=== PATIENT | female | born 1975 | race Two or more races ===

== ENCOUNTER 2017-10-08 12:49 | Inpatient (IN) | payer BC, OTHER ==
[~2017-10-08] VITALS: Ht 162.6 cm; Wt 75.4 kg
[2017-10-08] VITALS (15 sets, daily range): BP systolic 79–110; BP diastolic 46–62
[~2017-10-08 12:49] MED LIST: Pantoprazole Inj IVP ONE
[2017-10-08] MEDS ORDERED: Pantoprazole Inj ONE (12:58)
[2017-10-08] MEDS ORDERED: LISINOPRIL5 MG ORAL (13:27)
[2017-10-08] MEDS ORDERED: BENADRYL25 MG ORAL (13:27)
[2017-10-08] MEDS ORDERED: DILAUDID8 MG PO (13:27)
[2017-10-08 13:38] LABS: HEMATOCRIT 24.1 % (37.0-47.0); HEMOGLOBIN 7.7 G/DL (12.0-16.0); MEAN CORPUSCULAR VOLUME 102 FL (80-99); PLATELET COUNT 365 K/UL (150-450); RED BLOOD COUNT 2.36 M/UL (4.20-5.40); WHITE BLOOD COUNT 19.4 K/UL (4.8-10.8)
[2017-10-08 13:41] LABS: ANION GAP 17 mmol/L (5-15); BLOOD UREA NITROGEN 69 mg/dL (7-18); CALCIUM 9.1 MG/DL (8.5-10.1); CARBON DIOXIDE 25 MMOL/L (21-32); CHLORIDE 94 MMOL/L (98-107); CREATININE 6.9 MG/DL (0.55-1.30); POTASSIUM 4.5 MMOL/L (3.5-5.1); SODIUM 136 MMOL/L (136-145)
[2017-10-08 13:45] LABS: INR 1.1 (0.9-1.1)
[2017-10-08 13:49] LABS: AMMONIA 47 umol/L (11-32)
[2017-10-08 13:52] LABS: ALANINE AMINOTRANSFERASE 8 U/L (12-78); ALBUMIN 2.5 G/DL (3.4-5.0); ALBUMIN/GLOBULIN RATIO 0.6 (1.0-2.7); ALKALINE PHOSPHATASE 445 U/L (46-116); ASPARTATE AMINO TRANSFERASE 15 U/L (15-37); BILIRUBIN,DIRECT 0.1 MG/DL (0.0-0.3); BILIRUBIN,TOTAL 1.5 MG/DL (0.2-1.0)
[2017-10-08] MEDS ORDERED: SandoSTATIN 50mcg Inj IVP ONE (14:00)
--- NOTE | 2017-10-08 14:17 | Emergency Room Report ---
History of Present Illness General Chief Complaint: Gastrointestinal Bleed Source: Patient, EMS Present Illness HPI Patient is a 42-year-old female who presented after increased hematemesis. Patient was noted to have prior history of end-stage renal disease on dialysis. Patient was dialyzed yesterday reportedly. Patient has been dialyzed through a left-sided temporary dialysis access. She had previous shunts to both upper extremities. Patient denied any prior history of vomiting blood. She had previous abdominal surgeries. The patient reports having some lower abdominal pain. Allergies: Coded Allergies: CODEINE (Unverified Allergy, Unknown, 10/16/14) IODINE (Unverified Allergy, Unknown, 10/16/14) MORPHINE (Unverified Allergy, Unknown, 10/16/14) PENICILLINS (Unverified Allergy, Unknown, 10/16/14) Patient History Past Medical History: see triage record Reviewed Nursing Documentation: PMH: Agreed; PSxH: Agreed Nursing Documentation-PMH Past Medical History: No History, Except For Hx Hypertension: Yes Hx Dialysis: Yes - MWF Review of Systems All Other Systems: negative except mentioned in HPI Physical Exam Vital Signs Date Time Temp Pulse Resp B/P (MAP) Pulse Ox O2 Delivery O2 Flow Rate FiO2 10/08/17 12:41 98.9 106 20 80/46 99 Room Air 99.0 10/08/17 13:17 2.0 Sp02 EP Interpretation: reviewed, normal General Appearance: severe distress, Chronically Ill Head: atraumatic ENT: normal ENT inspection, hearing grossly normal, normal voice Neck: normal inspection, full range of motion, supple, no bony tend Respiratory: normal inspection, lungs clear, normal breath sounds, no respiratory distress, no retraction, no wheezing Cardiovascular #1: tachycardia Gastrointestinal: normal inspection, normal bowel sounds, non tender, soft, no guarding, no hernia Genitourinary: no CVA tenderness Musculoskeletal: normal inspection, back normal, normal range of motion Neurologic: normal inspection, alert, oriented x3, responsive, apartment property manager III-XII nml as tested, speech normal Psychiatric: normal inspection, judgement/insight normal, mood/affect normal Skin: no rash, pallor Procedures Critical Care Time Critical Care Time Patient had a critical medical condition which untreated could potentially result in life or limb threatening injury. Total critical care time excluding procedures approximately 45 minutes. Medical Decision Making Diagnostic Impression: Primary Impression: Upper GI bleed Additional Impressions: ESRD (end stage renal disease) Severe anemia ER Course Patient presented for abdominal pain. Differential diagnoses included ischemic bowel, appendicitis, perforated viscus, abdominal aortic aneurysm, inferior myocardial infarction, viral gastroenteritis, ulcer, esophageal varices, gastritis. Because of complexity of patient's case laboratory testing and imaging studies were ordered. A studies were notable for anemia with hemoglobin 7.7. Patient was noted to have initial hypotension. Patient was consented for blood transfusion. The patient suddenly transfused blood. The patient was started on IV fluids due to hypotension. Patient will be admitted to ICU. Dr. Clint Montelongo was contacted for GI consult. Dr. Snell was contacted for inpatient management due to covering physician. Labs Test 10/08/17 13:01 White Blood Count 19.4 K/UL (4.8-10.8) Red Blood Count 2.36 M/UL (4.20-5.40) Hemoglobin 7.7 G/DL (12.0-16.0) Hematocrit 24.1 % (37.0-47.0) Mean Corpuscular Volume 102 FL (80-99) Mean Corpuscular Hemoglobin 32.7 PG (27.0-31.0) Mean Corpuscular Hemoglobin Concent 32.0 G/DL (32.0-36.0) Red Cell Distribution Width 14.0 % (11.6-14.8) Platelet Count 365 K/UL (150-450) Mean Platelet Volume 8.4 FL (6.5-10.1) Neutrophils (%) (Auto) % (45.0-75.0) Lymphocytes (%) (Auto) % (20.0-45.0) Monocytes (%) (Auto) % (1.0-10.0) Eosinophils (%) (Auto) % (0.0-3.0) Basophils (%) (Auto) % (0.0-2.0) Differential Total Cells Counted 100 Neutrophils % (Manual) 76 % (45-75) Lymphocytes % (Manual) 20 % (20-45) Monocytes % (Manual) 4 % (1-10) Eosinophils % (Manual) 0 % (0-3) Basophils % (Manual) 0 % (0-2) Band Neutrophils 0 % (0-8) Platelet Estimate Adequate Platelet Morphology Normal Prothrombin Time 11.4 SEC (9.30-11.50) Prothromb Time International Ratio 1.1 (0.9-1.1) Activated Partial Thromboplast Time 28 SEC (23-33) Sodium Level 136 MMOL/L (136-145) Potassium Level 4.5 MMOL/L (3.5-5.1) Chloride Level 94 MMOL/L (98-107) Carbon Dioxide Level 25 MMOL/L (21-32) Anion Gap 17 mmol/L (5-15) Blood Urea Nitrogen 69 mg/dL (7-18) Creatinine 6.9 MG/DL (0.55-1.30) Estimat Glomerular Filtration Rate 6.6 mL/min (>60) Glucose Level 207 MG/DL (74-106) Calcium Level 9.1 MG/DL (8.5-10.1) Total Bilirubin 1.5 MG/DL (0.2-1.0) Direct Bilirubin 0.1 MG/DL (0.0-0.3) Aspartate Amino Transf (AST/SGOT) 15 U/L (15-37) Alanine Aminotransferase (ALT/SGPT) 8 U/L (12-78) Alkaline Phosphatase 445 U/L (46-116) Ammonia 47 umol/L (11-32) Total Protein 6.6 G/DL (6.4-8.2) Albumin 2.5 G/DL (3.4-5.0) Globulin 4.1 g/dL Albumin/Globulin Ratio 0.6 (1.0-2.7) Lipase 52 U/L (73-393) Human Chorionic Gonadotropin, Qual Negative EKG Diagnostic Results Rate: normal Rhythm: NSR ST Segments: no acute changes Rhythm Strip Diag. Results EP Interpretation: yes Rhythm: NSR, no PVC's, no ectopy Last Vital Signs Date Time Temp Pulse Resp B/P (MAP) Pulse Ox O2 Delivery O2 Flow Rate FiO2 10/08/17 14:02 99.0 93 18 95/51 98 Nasal Cannula 2.0 99.0 Status: unchanged Disposition: ADMITTED INPATIENT Condition: Critical Referrals: MACHELLE CALDERON (PCP) Kenroy Lennon Oct 08, 2017 14:17
[2017-10-08] MEDS: Octreotide Acetate 500 MCG in Sodium Chloride 500ML 499 ML IV SCH ×2 (14:51→19:40)
[2017-10-08] MEDS ORDERED: Pantoprazole 80 MG in NS 250 ML IV ONE ×2 (15:15→15:45)
--- NOTE | 2017-10-08 15:42 | Diagnostic Imaging Report ---
Indication: Abdominal pain. Vomiting blood. Technique: CT of the abdomen and pelvis utilizing automated exposure control with without intravenous or oral contrast. CT dose: Total DLP 747 mGycm; CTDI vol 14.7 mGy Comparison: None Findings: Note that evaluation of the abdominal pelvic viscera is limited without the use of intravenous and oral contrast. Within these limitations, the following observations are made: Dependent atelectasis noted in the lung bases. There is a 5 mm nodule in the right lower lobe. Heart size within normal limits. Portions of a Allises catheter noted with its tip in the low right atrium/approaching the IVC. There are aortic valvular, mitral annular and extensive coronary arterial calcifications. Linear calcifications noted underlying the domes of the bilateral diaphragms is nonspecific and may be sequela of prior trauma, inflammation or infection. A punctate calcification is noted within the left lobe liver. There is cholelithiasis without CT evidence to suggest an acute cholecystitis. Spleen and adrenal glands are unremarkable in appearance. The bilateral kidneys are shrunken and atrophic, consistent with end-stage renal disease. Multiple exophytic masses are noted within the kidneys some of which represent simple renal cysts, additional masses are not fully characterized. Multiple calcifications noted within the pancreas which may be vascular in etiology or may possibly reflect chronic pancreatitis. Bladder is decompressed, limiting its evaluation. The uterus grossly unremarkable. There is a moderate to large hiatal hernia. The stomach is distended with high attenuation material possibly representing blood. There is no evidence of bowel obstruction. No free intraperitoneal air or fluid. There is colonic diverticulosis without evidence to suggest an acute diverticulitis. No appreciable focal bowel wall thickening however evaluation is limited without oral contrast. Abdomen are normal in caliber. There is extensive calcification of the visceral arteries, likely related to end-stage renal disease. There is a calcified mass in the right lower quadrant, possibly calcified lymph nodes or sequela of remote trauma/surgery. There are some adjacent surgical clips. There is a small fat-containing umbilical hernia. There is extensive somewhat patchy sclerosis of the osseous structures, these findings most likely represent renal osteodystrophy. IMPRESSION: Limited exam without intravenous and oral contrast. Within these limitations: * Moderate to large hiatal hernia. Gastric distention with high attenuation components within the stomach lumen, likely blood. This may correspond with given history of hematemesis. No definite causative lesion is appreciated on this noncontrast scan. Correlation with upper endoscopy recommended. * Cholelithiasis. No evidence to suggest acute cholecystitis. * Diverticulosis. No evidence to suggest acute diverticulitis. * Atrophic eek kidneys. Multiple masses in the bilateral kidneys, some which are definitively characterized as simple cysts, the remainder are too small for definitive characterization. Consider further evaluation with ultrasound or MRI on a nonemergent basis. * Dialysis catheter in place with its tip low in the right atrium, projecting into the inferior vena cava. * Diffuse bony changes likely reflective of renal osteodystrophy. * 5 mm nodule in the right lower lobe. Additional findings as above. The CT scanner at [facility] is accredited by the [employer] and the scans are performed using protocols designed to limit radiation exposure to as low as reasonably achievable to attain images of sufficient resolution adequate for diagnostic evaluation.
--- NOTE | 2017-10-08 16:14 | History and Physical ---
History of Present Illness General Date patient seen: Oct 08, 2017 Time patient seen: 18:00 Reason for Hospitalization: Acute Upper Gastrointestinal Bleed Present Illness HPI 42y/o female with pmh of HTN, ESRD on HD who presents with hematemesis. Pt had bloody emesis since this AM. She has never had this before. She had a BM today but did not check the color so unsure if there was blood. She c/o generalized abd discomfort and n/v. Pt had a R foot fracture after a mechanical fall abt 2 weeks ago which was splinted at outside hospital. Pt also developed blister to area. She was seeing an outpatient orthopedic doctor. Pt had been taking dilaudid and naproxen for pain. Pt denies ASA, plavix, anticoagulation use. Denies f/c, chest pain, SOB. In ED, hgb 7.7. Pt had active hematemesis in ED. GI consulted. PPI and octreotide gtt started. 2U pRBC ordered to be transfused. Pt hypotensive to 70- 80s, given IVFs w/ improvement. Allergies: Coded Allergies: CODEINE (Unverified Allergy, Unknown, 10/16/14) IODINE (Unverified Allergy, Unknown, 10/16/14) MORPHINE (Unverified Allergy, Unknown, 10/16/14) PENICILLINS (Unverified Allergy, Unknown, 10/16/14) Medication History Scheduled Hydromorphone Hcl (Dilaudid), 8 MG PO DAILY, (Reported) Lisinopril (Lisinopril*), 5 MG ORAL DAILY, (Reported) Scheduled PRN Diphenhydramine Hcl* (Benadryl*), 25 MG ORAL Q6H PRN for Itching, (Reported) Patient History History Provided By: Patient, Family Member, Medical Record Healthcare decision maker N Resuscitation status Advanced Directive on File Past Medical/Surgical History Past Medical/Surgical History: (1) HTN (hypertension) (2) ESRD (end stage renal disease) Family History Family History: Patient reports no known family medical history. Social History Social History: (1) Lives with family Review of Systems Constitutional: Reports: malaise, weakness Eye: Reports: no symptoms ENT: Reports: no symptoms Respiratory: Reports: no symptoms Cardiovascular: Reports: no symptoms Gastrointestinal: Reports: abdominal pain, nausea, vomiting Genitourinary: Reports: no symptoms Musculoskeletal: Reports: no symptoms Skin: Reports: no symptoms Psychiatric: Reports: no symptoms Neurological: Reports: no symptoms Endocrine: Reports: no symptoms Hematologic/Lymphatic: Reports: no symptoms Physical Exam Last 24 Hour Vital Signs Date Time Temp Pulse Resp B/P (MAP) Pulse Ox O2 Delivery O2 Flow Rate FiO2 10/08/17 15:00 99.0 83 18 80/47 93 Nasal Cannula 2.0 99.0 10/08/17 14:02 99.0 93 18 95/51 98 Nasal Cannula 2.0 99.0 10/08/17 13:17 99.0 87 20 85/50 98 Nasal Cannula 2.0 99.0 10/08/17 12:41 98.9 106 20 80/46 99 Room Air 99.0 Laboratory Tests Test 10/08/17 13:01 White Blood Count 19.4 K/UL (4.8-10.8) H Red Blood Count 2.36 M/UL (4.20-5.40) L Hemoglobin 7.7 G/DL (12.0-16.0) L Hematocrit 24.1 % (37.0-47.0) L Mean Corpuscular Volume 102 FL (80-99) H Mean Corpuscular Hemoglobin 32.7 PG (27.0-31.0) H Mean Corpuscular Hemoglobin Concent 32.0 G/DL (32.0-36.0) Red Cell Distribution Width 14.0 % (11.6-14.8) Platelet Count 365 K/UL (150-450) Mean Platelet Volume 8.4 FL (6.5-10.1) Neutrophils (%) (Auto) % (45.0-75.0) Lymphocytes (%) (Auto) % (20.0-45.0) Monocytes (%) (Auto) % (1.0-10.0) Eosinophils (%) (Auto) % (0.0-3.0) Basophils (%) (Auto) % (0.0-2.0) Differential Total Cells Counted 100 Neutrophils % (Manual) 76 % (45-75) H Lymphocytes % (Manual) 20 % (20-45) Monocytes % (Manual) 4 % (1-10) Eosinophils % (Manual) 0 % (0-3) Basophils % (Manual) 0 % (0-2) Band Neutrophils 0 % (0-8) Platelet Estimate Adequate Platelet Morphology Normal Prothrombin Time 11.4 SEC (9.30-11.50) Prothromb Time International Ratio 1.1 (0.9-1.1) Activated Partial Thromboplast Time 28 SEC (23-33) Sodium Level 136 MMOL/L (136-145) Potassium Level 4.5 MMOL/L (3.5-5.1) Chloride Level 94 MMOL/L (98-107) L Carbon Dioxide Level 25 MMOL/L (21-32) Anion Gap 17 mmol/L (5-15) H Blood Urea Nitrogen 69 mg/dL (7-18) H Creatinine 6.9 MG/DL (0.55-1.30) H Estimat Glomerular Filtration Rate 6.6 mL/min (>60) Glucose Level 207 MG/DL (74-106) H Calcium Level 9.1 MG/DL (8.5-10.1) Total Bilirubin 1.5 MG/DL (0.2-1.0) H Direct Bilirubin 0.1 MG/DL (0.0-0.3) Aspartate Amino Transf (AST/SGOT) 15 U/L (15-37) Alanine Aminotransferase (ALT/SGPT) 8 U/L (12-78) L Alkaline Phosphatase 445 U/L (46-116) H Ammonia 47 umol/L (11-32) H Total Protein 6.6 G/DL (6.4-8.2) Albumin 2.5 G/DL (3.4-5.0) L Globulin 4.1 g/dL Albumin/Globulin Ratio 0.6 (1.0-2.7) L Lipase 52 U/L (73-393) L Human Chorionic Gonadotropin, Qual Negative Height (Feet): 5 Height (Inches): 5.00 Weight (Pounds): 150 Medications Current Medications Medications (Trade) Dose Ordered Sig/Loida Route PRN Reason Start Time Stop Time Status Last Admin Dose Admin Acetaminophen (Tylenol) 650 mg Q4H PRN ORAL Mild Pain (Pain Scale 1-3) 10/08/17 16:15 11/07/17 16:14 UNV Acetaminophen (Tylenol) 650 mg Q4H PRN ORAL fever 10/08/17 16:15 11/07/17 16:14 UNV Acetaminophen (Tylenol) 650 mg Q4H PRN RECTAL Mild Pain (Pain Scale 1-3) 4/5/18 16:15 11/07/17 16:14 UNV Acetaminophen (Tylenol) 650 mg Q4H PRN RECTAL fever 10/08/17 16:15 11/07/17 16:14 UNV Dextrose (Dextrose 50%) STAT PRN IV Hypoglycemia 10/08/17 16:15 11/07/17 16:14 UNV Dextrose/Sodium Chloride 1,000 ml @ 50 mls/hr Q20H IV 10/08/17 16:15 11/07/17 16:14 UNV Octreotide Acetate 500 mcg/ Sodium Chloride 500 ml @ 50 mls/hr Q10H IV 10/08/17 14:00 11/07/17 13:59 10/08/17 14:51 Ondansetron HCl (Zofran) 4 mg Q6H PRN IVP Nausea & Vomiting 10/08/17 16:15 11/07/17 16:14 UNV Pantoprazole 80 mg/Sodium Chloride 250 ml @ 25 mls/hr Q10H IV 10/08/17 16:15 11/07/17 16:14 UNV Pantoprazole 80 mg/Sodium Chloride 250 ml @ 250 mls/hr Q1H ONCE IV 10/08/17 15:15 10/08/17 16:14 10/08/17 15:42 Assessment/Plan Problem List: (1) Acute upper GI bleed ICD Codes: K92.2 - Gastrointestinal hemorrhage, unspecified SNOMED: 97081250 (2) Hypotension ICD Codes: I95.9 - Hypotension, unspecified SNOMED: 42454520 (3) Acute blood loss anemia ICD Codes: D62 - Acute posthemorrhagic anemia SNOMED: 590828267 (4) ESRD on HD Status: stable Assessment/Plan Admit to ICU GI consulted PPI gtt Octreotide gtt Trend CBC; transfuse for hgb<7.5 or active bleeding Transfuse 2U pRBCs NPO Plan for EGD tomorrow Cardiology consulted Hold BP meds Pulmonology/critical care consulted Pressors if needed to maintain MAP>60\ Monitor respiratory status closely given hematemesis Nephrology consulted Cont HD per renal Pain control, bowel regimen Supportive care DVT ppx: SCDs FULL CODE At the time of my involvement, the patient's condition was critical with high potential for and/or physiologic deterioration secondary to acute upper GI bleed, hypotension as delineated in the note above. Total time spent 70min w/ >50% on care/coordination On the above date of service, I spent a total of 45 minutes in the ICU evaluating, managing, and providing critical care services to this patient, including time spent documenting these activities, counseling patient/family, and coordinating care. Critical care services performed include: Telemetry Review Hemodynamic measurement interpretation Laboratory data review and interpretation Discussion of care plans with patient, family, and/or surrogate decision makers Discussion of patient's care with primary medical team, surgical team, and/or consulting service Decision to obtain further radiologic evaluation, after consideration of risk/ benefit ratio Decision to perform invasive procedure, after consideration of risk/benefit ratio Discussion of patient's code status and further advancement towards the ultimate goals of care D/w pt, family, RN, GI, renal, cardiology, pulmonology regarding mgmt and dispo Time of note may not reflect time of encounter. Channing Mejia M.D. Oct 08, 2017 16:14
[2017-10-08] MEDS ORDERED: Acetaminophen 650 MG SUPP RECTAL PRN (16:15)
[2017-10-08] MEDS ORDERED: DiphenhydrAMINE 50mg/ml Inj IVP ONE (17:00)
[2017-10-08] MEDS ORDERED: Solu-MEDROL 125mg Inj IVP ONE (17:00)
--- NOTE | 2017-10-08 17:24 | Cardiac Electrophysiology PN ---
Subjective Subjective [id number] Objective Last 24 Hour Vital Signs Date Time Temp Pulse Resp B/P (MAP) Pulse Ox O2 Delivery O2 Flow Rate FiO2 10/08/17 16:43 97.8 81 18 80/46 96 Nasal Cannula 2.0 97.8 10/08/17 15:00 99.0 83 18 80/47 93 Nasal Cannula 2.0 99.0 10/08/17 14:02 99.0 93 18 95/51 98 Nasal Cannula 2.0 99.0 10/08/17 13:17 99.0 87 20 85/50 98 Nasal Cannula 2.0 99.0 10/08/17 12:41 98.9 106 20 80/46 99 Room Air 99.0 Laboratory Tests Test 10/08/17 13:01 White Blood Count 19.4 K/UL (4.8-10.8) H Red Blood Count 2.36 M/UL (4.20-5.40) L Hemoglobin 7.7 G/DL (12.0-16.0) L Hematocrit 24.1 % (37.0-47.0) L Mean Corpuscular Volume 102 FL (80-99) H Mean Corpuscular Hemoglobin 32.7 PG (27.0-31.0) H Mean Corpuscular Hemoglobin Concent 32.0 G/DL (32.0-36.0) Red Cell Distribution Width 14.0 % (11.6-14.8) Platelet Count 365 K/UL (150-450) Mean Platelet Volume 8.4 FL (6.5-10.1) Neutrophils (%) (Auto) % (45.0-75.0) Lymphocytes (%) (Auto) % (20.0-45.0) Monocytes (%) (Auto) % (1.0-10.0) Eosinophils (%) (Auto) % (0.0-3.0) Basophils (%) (Auto) % (0.0-2.0) Differential Total Cells Counted 100 Neutrophils % (Manual) 76 % (45-75) H Lymphocytes % (Manual) 20 % (20-45) Monocytes % (Manual) 4 % (1-10) Eosinophils % (Manual) 0 % (0-3) Basophils % (Manual) 0 % (0-2) Band Neutrophils 0 % (0-8) Platelet Estimate Adequate Platelet Morphology Normal Prothrombin Time 11.4 SEC (9.30-11.50) Prothromb Time International Ratio 1.1 (0.9-1.1) Activated Partial Thromboplast Time 28 SEC (23-33) Sodium Level 136 MMOL/L (136-145) Potassium Level 4.5 MMOL/L (3.5-5.1) Chloride Level 94 MMOL/L (98-107) L Carbon Dioxide Level 25 MMOL/L (21-32) Anion Gap 17 mmol/L (5-15) H Blood Urea Nitrogen 69 mg/dL (7-18) H Creatinine 6.9 MG/DL (0.55-1.30) H Estimat Glomerular Filtration Rate 6.6 mL/min (>60) Glucose Level 207 MG/DL (74-106) H Calcium Level 9.1 MG/DL (8.5-10.1) Total Bilirubin 1.5 MG/DL (0.2-1.0) H Direct Bilirubin 0.1 MG/DL (0.0-0.3) Aspartate Amino Transf (AST/SGOT) 15 U/L (15-37) Alanine Aminotransferase (ALT/SGPT) 8 U/L (12-78) L Alkaline Phosphatase 445 U/L (46-116) H Ammonia 47 umol/L (11-32) H Total Protein 6.6 G/DL (6.4-8.2) Albumin 2.5 G/DL (3.4-5.0) L Globulin 4.1 g/dL Albumin/Globulin Ratio 0.6 (1.0-2.7) L Lipase 52 U/L (73-393) L Human Chorionic Gonadotropin, Qual Negative Fabio San MD Oct 08, 2017 17:24
[2017-10-08 18:08] LABS: % IRON SATURATION 60 % (15-50); IRON 93 ug/dL (50-175); TOTAL IRON BINDING CAPACITY 155 ug/dL (250-450)
[2017-10-08 18:20] LABS: FERRITIN > 2000 NG/ML (8-388); LACTATE DEHYDROGENASE 208 U/L (81-234)
[2017-10-08] MEDS: D5NS 1,000 ML IV SCH (18:26)
[2017-10-08] MEDS: Pantoprazole 80 MG in NS 250 ML IV SCH (18:28)
[2017-10-08] MEDS: DOPamine 400mg/250ml 250 ML IV SCH (20:10)
[2017-10-08 22:00] LABS: HEMATOCRIT 21.7 % (37.0-47.0); HEMOGLOBIN 7.1 G/DL (12.0-16.0); MEAN CORPUSCULAR VOLUME 98 FL (80-99); PLATELET COUNT 265 K/UL (150-450); RED BLOOD COUNT 2.22 M/UL (4.20-5.40); RED CELL DISTRIBUTION WIDTH 15.6 % (11.6-14.8); WHITE BLOOD COUNT 15.7 K/UL (4.8-10.8)
[2017-10-08 22:23] LABS: INR 1.2 (0.9-1.1)
[2017-10-08 22:26] LABS: CREATINE KINASE 75 U/L (26-308)
--- NOTE | 2017-10-08 22:45 | Consultation ---
DATE OF CONSULTATION: 10/08/2017 CARDIOLOGY CONSULTATION CONSULTING PHYSICIAN: Fabio San M.D. REFERRING PHYSICIAN: Myke Olmos M.D. REASON FOR CONSULTATION: Hypotension in a patient with history of hypertension. HISTORY OF PRESENT ILLNESS: The patient is a 42-year-old lady with history of hypertension as well as end-stage renal disease on hemodialysis for 24 years as well as history of failed kidney transplant. The patient presented to the emergency room for hematemesis. The patient is currently getting hemodialysis via her left IJ Sean catheter as she has nonfunctional shunt of upper extremity. The patient in the emergency room was found to be hypotensive with blood pressure as low as 70s. At the time of my evaluation, the patient is getting blood transfusion. She is lethargic. Her hemoglobin was 7.7. REVIEW OF SYSTEMS: Cannot be obtained as the patient is barely responsive. Both of her sisters are at the bedside and states that she has not had any chest pain when they brought her to the emergency room. PAST MEDICAL HISTORY: 1. Hypertension. 2. End-stage renal disease, on hemodialysis. 3. History of failed kidney transplant. FAMILY HISTORY: Noncontributory. SOCIAL HISTORY: She lives at home. Does not smoke or drink alcohol. PHYSICAL EXAMINATION: VITAL SIGNS: Blood pressure is 80/46, pulse 81, respirations 18, temperature 97.8. HEAD AND NECK: Shows no JVD. She has a left IJ Sean catheter. LUNGS: Clear. CARDIOVASCULAR: Tachycardic. S1 and S2 with no gallop or murmur. ABDOMEN: Soft. EXTREMITIES: No pitting edema. She has history of AV shunt in her bilateral upper extremities. LABORATORY DATA: Labs show white count of 19.4, hemoglobin 7.7, hematocrit of 24, and platelet count is 365. Sodium 136, potassium 4.5, BUN of 69, creatinine 6.9, and glucose of 207. Her beta-HCG is negative. ASSESSMENT AND PLAN: 1. Hypotension, likely due to hemorrhagic shock. The patient is getting blood transfusion and IV fluid. The patient may need Levophed to sustain her blood pressure. We will completely rule out myocardial infarction protocol and get an echocardiogram. 2. Hematemesis and profound anemia. Gastroenterology evaluation is pending. She is getting blood transfusion. 3. End-stage renal disease, on hemodialysis. 4. History of failed kidney transplant. Thank you very much, Dr. Olmos, for allowing me to participate in the care of this patient. Please do not hesitate to contact me for any questions regarding my evaluation. Fabio San M.D. DR: Delphine JOB#: [id number] CC:
[2017-10-09] VITALS (19 sets, daily range): BP systolic 87–132; BP diastolic 33–76
[2017-10-09] MEDS: Octreotide Acetate 500 MCG in Sodium Chloride 500ML 499 ML IV SCH ×2 (01:22→10:55)
[2017-10-09] MEDS ORDERED: Pantoprazole 80 MG in NS 250 ML IV SCH (01:30)
[2017-10-09] MEDS: Pantoprazole 80 MG in NS 250 ML IV SCH ×2 (04:06→14:00)
[2017-10-09 04:51] LABS: HEMATOCRIT 19.4 % (37.0-47.0); MEAN CORPUSCULAR VOLUME 96 FL (80-99); PLATELET COUNT 217 K/UL (150-450); RED BLOOD COUNT 2.02 M/UL (4.20-5.40); RED CELL DISTRIBUTION WIDTH 15.8 % (11.6-14.8); WHITE BLOOD COUNT 15.4 K/UL (4.8-10.8)
[2017-10-09 05:24] LABS: HEMOGLOBIN 6.3 G/DL (12.0-16.0)
[2017-10-09 05:30] LABS: ANION GAP 14 mmol/L (5-15); BLOOD UREA NITROGEN 95 mg/dL (7-18); CALCIUM 8.1 MG/DL (8.5-10.1); CARBON DIOXIDE 22 MMOL/L (21-32); CHLORIDE 101 MMOL/L (98-107); CREATININE 7.1 MG/DL (0.55-1.30); SODIUM 137 MMOL/L (136-145)
[2017-10-09 05:43] LABS: ALANINE AMINOTRANSFERASE 434 U/L (12-78); ALBUMIN 2.1 G/DL (3.4-5.0); ALKALINE PHOSPHATASE 391 U/L (46-116); ASPARTATE AMINO TRANSFERASE 851 U/L (15-37); BILIRUBIN,DIRECT 0.2 MG/DL (0.0-0.3); BILIRUBIN,TOTAL 1.5 MG/DL (0.2-1.0)
--- NOTE | 2017-10-09 06:55 | Cardiac Electrophysiology PN ---
Assessment/Plan Assessment/Plan 1. Hypotension, likely due to hemorrhagic shock. The patient is getting blood transfusion and IV fluid. Did not need pressors.Rule out for myocardial infarction Echocardiogram pending. 2. Hematemesis and profound anemia. Gastroenterology evaluation is pending. She is getting blood transfusion.Dr Gunter at bedside 3. End-stage renal disease, on hemodialysis. 4. History of failed kidney transplant. ROMERO RN in ICU Subjective Subjective In ICU getting blood transfusion. Dr Gunter at bedside Objective Last 24 Hour Vital Signs Date Time Temp Pulse Resp B/P (MAP) Pulse Ox O2 Delivery O2 Flow Rate FiO2 10/09/17 04:00 98.4 86 15 98/50 100 Room Air 98.4 10/09/17 04:00 84 10/09/17 03:00 98.4 88 16 96/49 99 Room Air 98.4 10/09/17 02:00 98.9 88 17 96/49 100 Nasal Cannula 2.0 98.9 10/09/17 01:00 100 Nasal Cannula 2.0 28 10/09/17 00:00 98.9 87 18 96/52 100 Nasal Cannula 2.0 98.9 10/08/17 23:00 87 18 100/62 100 Nasal Cannula 2.0 10/08/17 22:00 97.4 89 16 110/62 100 Nasal Cannula 2.0 97.4 10/08/17 21:00 81 18 92/54 100 Nasal Cannula 2.0 10/08/17 20:10 90/45 10/08/17 20:00 83 10/08/17 20:00 97.4 81 18 91/54 100 Nasal Cannula 2.0 97.4 10/08/17 19:30 Nasal Cannula 2.0 28 10/08/17 19:00 83 17 84/57 100 Nasal Cannula 2.0 10/08/17 18:00 97.4 83 16 80/48 100 Nasal Cannula 2.0 97.4 10/08/17 18:00 97.4 83 16 90/51 96 Nasal Cannula 2.0 97.4 10/08/17 17:49 97.4 83 16 90/51 96 Nasal Cannula 2.0 97.4 10/08/17 17:35 97.4 84 13 88/51 96 Nasal Cannula 2.0 97.4 10/08/17 17:30 97.4 85 18 83/52 95 Nasal Cannula 2.0 97.4 10/08/17 17:27 97.1 85 12 79/57 96 Nasal Cannula 2.0 97.1 10/08/17 17:20 97.1 85 18 81/47 96 Nasal Cannula 2.0 97.1 10/08/17 16:43 97.8 81 18 80/46 96 Nasal Cannula 2.0 97.8 10/08/17 15:00 99.0 83 18 80/47 93 Nasal Cannula 2.0 99.0 10/08/17 14:02 99.0 93 18 95/51 98 Nasal Cannula 2.0 99.0 10/08/17 13:17 99.0 87 20 85/50 98 Nasal Cannula 2.0 99.0 10/08/17 12:41 98.9 106 20 80/46 99 Room Air 99.0 Intake and Output 10/08/17 10/09/17 19:00 07:00 Intake Total 0 ml 625 ml Output Total 50 ml 2 ml Balance -50 ml 623 ml Intake Oral 0 ml IV Total 625 ml Output Urine Total 0 ml Stool Total 2 ml Emesis 50 ml 0 ml # Bowel Movements 8 Laboratory Tests Test 10/08/17 13:01 10/08/17 20:50 10/09/17 03:00 White Blood Count 19.4 K/UL (4.8-10.8) H 15.7 K/UL (4.8-10.8) H 15.4 K/UL (4.8-10.8) H Red Blood Count 2.36 M/UL (4.20-5.40) L 2.22 M/UL (4.20-5.40) L 2.02 M/UL (4.20-5.40) L Hemoglobin 7.7 G/DL (12.0-16.0) L 7.1 G/DL (12.0-16.0) L 6.3 G/DL (12.0-16.0) *L Hematocrit 24.1 % (37.0-47.0) L 21.7 % (37.0-47.0) L 19.4 % (37.0-47.0) L Mean Corpuscular Volume 102 FL (80-99) H 98 FL (80-99) 96 FL (80-99) Mean Corpuscular Hemoglobin 32.7 PG (27.0-31.0) H 31.8 PG (27.0-31.0) H 31.3 PG (27.0-31.0) H Mean Corpuscular Hemoglobin Concent 32.0 G/DL (32.0-36.0) 32.6 G/DL (32.0-36.0) 32.7 G/DL (32.0-36.0) Red Cell Distribution Width 14.0 % (11.6-14.8) 15.6 % (11.6-14.8) H 15.8 % (11.6-14.8) H Platelet Count 365 K/UL (150-450) 265 K/UL (150-450) 217 K/UL (150-450) Mean Platelet Volume 8.4 FL (6.5-10.1) 7.8 FL (6.5-10.1) 8.3 FL (6.5-10.1) Neutrophils (%) (Auto) % (45.0-75.0) % (45.0-75.0) % (45.0-75.0) Lymphocytes (%) (Auto) % (20.0-45.0) % (20.0-45.0) % (20.0-45.0) Monocytes (%) (Auto) % (1.0-10.0) % (1.0-10.0) % (1.0-10.0) Eosinophils (%) (Auto) % (0.0-3.0) % (0.0-3.0) % (0.0-3.0) Basophils (%) (Auto) % (0.0-2.0) % (0.0-2.0) % (0.0-2.0) Differential Total Cells Counted 100 100 Neutrophils % (Manual) 76 % (45-75) H 91 % (45-75) H Pending Lymphocytes % (Manual) 20 % (20-45) 8 % (20-45) L Pending Monocytes % (Manual) 4 % (1-10) 1 % (1-10) Eosinophils % (Manual) 0 % (0-3) 0 % (0-3) Basophils % (Manual) 0 % (0-2) 0 % (0-2) Band Neutrophils 0 % (0-8) 0 % (0-8) Platelet Estimate Adequate Adequate Pending Platelet Morphology Normal Normal Pending Reticulocyte Count 2.1 % (0.0-2.0) H Prothrombin Time 11.4 SEC (9.30-11.50) 12.8 SEC (9.30-11.50) H Prothromb Time International Ratio 1.1 (0.9-1.1) 1.2 (0.9-1.1) H Activated Partial Thromboplast Time 28 SEC (23-33) 28 SEC (23-33) Sodium Level 136 MMOL/L (136-145) 137 MMOL/L (136-145) Potassium Level 4.5 MMOL/L (3.5-5.1) 7.0 MMOL/L (3.5-5.1) #*H Chloride Level 94 MMOL/L (98-107) L 101 MMOL/L (98-107) Carbon Dioxide Level 25 MMOL/L (21-32) 22 MMOL/L (21-32) Anion Gap 17 mmol/L (5-15) H 14 mmol/L (5-15) Blood Urea Nitrogen 69 mg/dL (7-18) H 95 mg/dL (7-18) H Creatinine 6.9 MG/DL (0.55-1.30) H 7.1 MG/DL (0.55-1.30) H Estimat Glomerular Filtration Rate 6.6 mL/min (>60) 6.4 mL/min (>60) Glucose Level 207 MG/DL (74-106) H 158 MG/DL (74-106) H Calcium Level 9.1 MG/DL (8.5-10.1) 8.1 MG/DL (8.5-10.1) L Iron Level 93 ug/dL (50-175) Total Iron Binding Capacity 155 ug/dL (250-450) L Percent Iron Saturation 60 % (15-50) H Unsaturated Iron Binding 62 ug/dL (112-346) L Ferritin > 2000 NG/ML (8-388) H Total Bilirubin 1.5 MG/DL (0.2-1.0) H 1.5 MG/DL (0.2-1.0) H Direct Bilirubin 0.1 MG/DL (0.0-0.3) 0.2 MG/DL (0.0-0.3) Aspartate Amino Transf (AST/SGOT) 15 U/L (15-37) 851 U/L (15-37) H Alanine Aminotransferase (ALT/SGPT) 8 U/L (12-78) L 434 U/L (12-78) H Alkaline Phosphatase 445 U/L (46-116) H 391 U/L (46-116) H Ammonia 47 umol/L (11-32) H Lactate Dehydrogenase 208 U/L (81-234) Total Protein 6.6 G/DL (6.4-8.2) 4.8 G/DL (6.4-8.2) L Albumin 2.5 G/DL (3.4-5.0) L 2.1 G/DL (3.4-5.0) L Globulin 4.1 g/dL Albumin/Globulin Ratio 0.6 (1.0-2.7) L Lipase 52 U/L (73-393) L Vitamin B12 Level 378 PG/ML (193-986) Folate 7.2 NG/ML (8.6-58.9) L Thyroid Stimulating Hormone (TSH) 1.864 uiU/mL (0.358-3.740) Human Chorionic Gonadotropin, Qual Negative Polychromasia 1+ Anisocytosis 1+ Macrocytosis 1+ Erythrocyte Sedimentation Rate 115 MM/HR (0-20) H Haptoglobin Pending Uric Acid 6.7 MG/DL (2.6-7.2) Total Creatine Kinase 75 U/L (26-308) Magnesium Level 2.3 MG/DL (1.8-2.4) Troponin I 0.056 ng/mL (0.000-0.056) Pro-B-Type Natriuretic Peptide 6927 pg/mL (0-125) H Objective HEAD AND NECK: Shows no JVD. She has a left IJ Sean catheter. LUNGS: Clear. CARDIOVASCULAR: Tachycardic. S1 and S2 with no gallop or murmur. ABDOMEN: Soft. EXTREMITIES: No pitting edema. AV shunt in her bilateral upper extremities. Fabio San MD Oct 09, 2017 06:55
--- NOTE | 2017-10-09 08:30 | Consultation ---
DATE OF CONSULTATION: 10/08/2017 GASTROENTEROLOGY CONSULTATION CHIEF COMPLAINT: Anemia and GI bleeding. HISTORY OF PRESENT ILLNESS: Most of the history is per sister at the bedside. The patient was seen in the emergency room. The patient was altered and could not give any history. According to the sister, she is a dialysis patient and had a recent broken ankle that required surgery and she is not sure if she was getting some medication, but was given some pain medication. She started having vomiting blood and that is why she was admitted to the hospital. PAST MEDICAL HISTORY: 1. History of end-stage renal disease, on hemodialysis. 2. History of . 3. History of multiple blood transfusions. 4. History of chronic pain. 5. Hypertension. PAST SURGICAL HISTORY: and dialysis catheter placement on the right arm. ALLERGIES: Multiple. MEDICATIONS: Please see medication reconciliation list. SOCIAL HISTORY: There is no history of tobacco, alcohol, or drug abuse. FAMILY HISTORY: Noncontributory. REVIEW OF SYSTEMS: Unable to obtain. PHYSICAL EXAMINATION: GENERAL/VITAL SIGNS: The patient is currently in the ER, hypotensive, tachycardic. HEENT: Normocephalic and atraumatic. Mild pale conjunctivae. NECK: Supple. No obvious adenopathy. CARDIOVASCULAR: Tachycardic. Regular rate. Plus S1, S2. LUNGS: Decreased breath sounds bilaterally based on the supine exam. ABDOMEN: Soft, nontender. No rebound. No guarding. No peritoneal sign. EXTREMITIES: No cyanosis, no clubbing, and no edema. LABORATORY DATA: Recent hemoglobin around 7. ASSESSMENT: This is a 42-year-old female with acute gastrointestinal bleeding. PLAN: Plan is to give 2 units of blood. Admitted to ICU. Started on Protonix drip. Plan to do endoscopy possibly tomorrow morning. We will plan to do endoscopy sooner if the patient has available blood and she still has evidence of . Clint Montelongo M.D. DR: KATHY JOB#: [id number] CC:
--- NOTE | 2017-10-09 08:37 | Consultation ---
Consult Note Consult Note asked to eval for dialysis management Patient is a 42-year-old female who presented after increased hematemesis. Patient was noted to have prior history of end-stage renal disease on dialysis. Patient was dialyzed yesterday reportedly. Patient has been dialyzed through a left-sided temporary dialysis access. She had previous shunts to both upper extremities. Patient denied any prior history of vomiting blood. She had previous abdominal surgeries. The patient reports having some lower abdominal pain. Allergies: Coded Allergies: CODEINE (Unverified Allergy, Unknown, 10/16/14) IODINE (Unverified Allergy, Unknown, 10/16/14) MORPHINE (Unverified Allergy, Unknown, 10/16/14) PENICILLINS (Unverified Allergy, Unknown, 10/16/14) seen in ICU Examined Data reviewed discussed with RN and GI Assessment/Plan ESRD on HD for 12 years h/o failed kidney transplant High K GI Bleed Hypotension Plan Transfuse- HD [facility] Endoscopy ICU setting until stablizes BARTOLO SHARMA Oct 09, 2017 08:37
[2017-10-09 10:11] LABS: HEMATOCRIT 24.1 % (37.0-47.0); MEAN CORPUSCULAR VOLUME 94 FL (80-99); PLATELET COUNT 209 K/UL (150-450); RED BLOOD COUNT 2.58 M/UL (4.20-5.40); RED CELL DISTRIBUTION WIDTH 15.5 % (11.6-14.8)
[2017-10-09 10:42] LABS: ANION GAP 16 mmol/L (5-15); BLOOD UREA NITROGEN 113 mg/dL (7-18); CALCIUM 8.3 MG/DL (8.5-10.1); CARBON DIOXIDE 19 MMOL/L (21-32); CHLORIDE 102 MMOL/L (98-107); CREATININE 7.2 MG/DL (0.55-1.30); SODIUM 135 MMOL/L (136-145)
[2017-10-09 10:45] LABS: BILIRUBIN,DIRECT 0.2 MG/DL (0.0-0.3); BILIRUBIN,TOTAL 1.5 MG/DL (0.2-1.0)
[2017-10-09 10:47] LABS: POTASSIUM 6.1 MMOL/L (3.5-5.1)
--- NOTE | 2017-10-09 11:16 | Pulmonolgy Critical Care Note ---
Critical Care - Asmt/Plan Problems: (1) Hemorrhagic shock (2) Upper GI bleed (3) Severe anemia (4) ESRD (end stage renal disease) Respiratory: monitor respiratory rate, adjust FIO2 Cardiac: continue to monitor HR/BP Renal: F/U I&O, keep IV fluid Gastrointestinal: hold feedings, other - for EDG now Endocrine: monitor blood sugar Hematologic: transfuse if hgb<8.5 Neurologic: PRN Ativan, keep patient comfortable Affect: PRN ativan Prophylaxis: Protonix Time Spent (Minutes): 40 Notes Reviewed: inspector wreath, cardio, renal Discussed with: nurses, caseworker protective servicesdesktop manager - Objective Last 24 Hour Vital Signs Date Time Temp Pulse Resp B/P (MAP) Pulse Ox O2 Delivery O2 Flow Rate FiO2 10/09/17 07:00 84 16 108/54 98 Room Air 10/09/17 06:00 85 15 103/39 96 Room Air 10/09/17 05:00 87 15 92/45 96 Room Air 10/09/17 04:00 98.4 86 15 98/50 100 Room Air 98.4 10/09/17 04:00 84 10/09/17 03:00 98.4 88 16 96/49 99 Room Air 98.4 10/09/17 02:00 98.9 88 17 96/49 100 Nasal Cannula 2.0 98.9 10/09/17 01:00 100 Nasal Cannula 2.0 28 10/09/17 00:00 98.9 87 18 96/52 100 Nasal Cannula 2.0 98.9 10/08/17 23:00 87 18 100/62 100 Nasal Cannula 2.0 10/08/17 22:00 97.4 89 16 110/62 100 Nasal Cannula 2.0 97.4 10/08/17 21:00 81 18 92/54 100 Nasal Cannula 2.0 10/08/17 20:10 90/45 10/08/17 20:00 83 10/08/17 20:00 97.4 81 18 91/54 100 Nasal Cannula 2.0 97.4 10/08/17 19:30 Nasal Cannula 2.0 28 10/08/17 19:00 83 17 84/57 100 Nasal Cannula 2.0 10/08/17 18:00 97.4 83 16 80/48 100 Nasal Cannula 2.0 97.4 4/5/18 18:00 97.4 83 16 90/51 96 Nasal Cannula 2.0 97.4 10/08/17 17:49 97.4 83 16 90/51 96 Nasal Cannula 2.0 97.4 10/08/17 17:35 97.4 84 13 88/51 96 Nasal Cannula 2.0 97.4 10/08/17 17:30 97.4 85 18 83/52 95 Nasal Cannula 2.0 97.4 10/08/17 17:27 97.1 85 12 79/57 96 Nasal Cannula 2.0 97.1 10/08/17 17:20 97.1 85 18 81/47 96 Nasal Cannula 2.0 97.1 10/08/17 16:43 97.8 81 18 80/46 96 Nasal Cannula 2.0 97.8 10/08/17 15:00 99.0 83 18 80/47 93 Nasal Cannula 2.0 99.0 10/08/17 14:02 99.0 93 18 95/51 98 Nasal Cannula 2.0 99.0 10/08/17 13:17 99.0 87 20 85/50 98 Nasal Cannula 2.0 99.0 10/08/17 12:41 98.9 106 20 80/46 99 Room Air 99.0 Status: awake Condition: critical HEENT: atraumatic Lungs: clear Heart: HR/BP stable, HR/BP unstable Abdomen: soft, active bowel sounds Extremities: no C/C/E Decubiti: location Accucheck: 144 Critical Care - Subjective ROS Limited/Unobtainable: No ICU Day: 2 Condition: critical EKG Rhythm: Sinus Rhythm FI02: 28 Fluids: d5NS I&O: Intake and Output 10/08/17 10/09/17 19:00 07:00 Intake Total 0 ml 1500 ml Output Total 50 ml 2 ml Balance -50 ml 1498 ml Intake Oral 0 ml IV Total 1500 ml Output Urine Total 0 ml Stool Total 2 ml Emesis 50 ml 0 ml # Bowel Movements 10 CXR: ct reviewed Labs: Laboratory Tests Test 10/08/17 13:01 10/08/17 20:50 10/09/17 03:00 10/09/17 09:50 White Blood Count 19.4 K/UL (4.8-10.8) H 15.7 K/UL (4.8-10.8) H 15.4 K/UL (4.8-10.8) H 19.0 K/UL (4.8-10.8) H Red Blood Count 2.36 M/UL (4.20-5.40) L 2.22 M/UL (4.20-5.40) L 2.02 M/UL (4.20-5.40) L 2.58 M/UL (4.20-5.40) L Hemoglobin 7.7 G/DL (12.0-16.0) L 7.1 G/DL (12.0-16.0) L 6.3 G/DL (12.0-16.0) *L 8.0 G/DL (12.0-16.0) L Hematocrit 24.1 % (37.0-47.0) L 21.7 % (37.0-47.0) L 19.4 % (37.0-47.0) L 24.1 % (37.0-47.0) L Mean Corpuscular Volume 102 FL (80-99) H 98 FL (80-99) 96 FL (80-99) 94 FL (80-99) Mean Corpuscular Hemoglobin 32.7 PG (27.0-31.0) H 31.8 PG (27.0-31.0) H 31.3 PG (27.0-31.0) H 31.1 PG (27.0-31.0) H Mean Corpuscular Hemoglobin Concent 32.0 G/DL (32.0-36.0) 32.6 G/DL (32.0-36.0) 32.7 G/DL (32.0-36.0) 33.2 G/DL (32.0-36.0) Red Cell Distribution Width 14.0 % (11.6-14.8) 15.6 % (11.6-14.8) H 15.8 % (11.6-14.8) H 15.5 % (11.6-14.8) H Platelet Count 365 K/UL (150-450) 265 K/UL (150-450) 217 K/UL (150-450) 209 K/UL (150-450) Mean Platelet Volume 8.4 FL (6.5-10.1) 7.8 FL (6.5-10.1) 8.3 FL (6.5-10.1) 8.1 FL (6.5-10.1) Neutrophils (%) (Auto) % (45.0-75.0) % (45.0-75.0) % (45.0-75.0) % (45.0-75.0) Lymphocytes (%) (Auto) % (20.0-45.0) % (20.0-45.0) % (20.0-45.0) % (20.0-45.0) Monocytes (%) (Auto) % (1.0-10.0) % (1.0-10.0) % (1.0-10.0) % (1.0- 10.0) Eosinophils (%) (Auto) % (0.0-3.0) % (0.0-3.0) % (0.0-3.0) % (0.0-3.0 ) Basophils (%) (Auto) % (0.0-2.0) % (0.0-2.0) % (0.0-2.0) % (0.0-2.0) Differential Total Cells Counted 100 100 100 100 Neutrophils % (Manual) 76 % (45-75) H 91 % (45-75) H 89 % (45-75) H 91 % (45- 75) H Lymphocytes % (Manual) 20 % (20-45) 8 % (20-45) L 8 % (20-45) L 6 % (20-45) L Monocytes % (Manual) 4 % (1-10) 1 % (1-10) 3 % (1-10) 3 % (1-10) Eosinophils % (Manual) 0 % (0-3) 0 % (0-3) 0 % (0-3) 0 % (0-3) Basophils % (Manual) 0 % (0-2) 0 % (0-2) 0 % (0-2) 0 % (0-2) Band Neutrophils 0 % (0-8) 0 % (0-8) 0 % (0-8) 0 % (0-8) Platelet Estimate Adequate Adequate Adequate Adequate Platelet Morphology Normal Normal Normal Normal Reticulocyte Count 2.1 % (0.0-2.0) H Prothrombin Time 11.4 SEC (9.30-11.50) 12.8 SEC (9.30-11.50) H Prothromb Time International Ratio 1.1 (0.9-1.1) 1.2 (0.9-1.1) H Activated Partial Thromboplast Time 28 SEC (23-33) 28 SEC (23-33) Sodium Level 136 MMOL/L (136-145) 137 MMOL/L (136-145) 135 MMOL/L (136-145) L Potassium Level 4.5 MMOL/L (3.5-5.1) 7.0 MMOL/L (3.5-5.1) #*H 6.1 MMOL/L (3.5-5.1) *H Chloride Level 94 MMOL/L (98-107) L 101 MMOL/L (98-107) 102 MMOL/L (98-107) Carbon Dioxide Level 25 MMOL/L (21-32) 22 MMOL/L (21-32) 19 MMOL/L (21-32) L Anion Gap 17 mmol/L (5-15) H 14 mmol/L (5-15) 16 mmol/L (5-15) H Blood Urea Nitrogen 69 mg/dL (7-18) H 95 mg/dL (7-18) H 113 mg/dL (7-18) H Creatinine 6.9 MG/DL (0.55-1.30) H 7.1 MG/DL (0.55-1.30) H 7.2 MG/DL (0.55-1.30) H Estimat Glomerular Filtration Rate 6.6 mL/min (>60) 6.4 mL/min (>60) 6.2 mL/min (>60) Glucose Level 207 MG/DL (74-106) H 158 MG/DL (74-106) H 303 MG/DL (74-106) #H Calcium Level 9.1 MG/DL (8.5-10.1) 8.1 MG/DL (8.5-10.1) L 8.3 MG/DL (8.5-10.1) L Iron Level 93 ug/dL (50-175) Total Iron Binding Capacity 155 ug/dL (250-450) L Percent Iron Saturation 60 % (15-50) H Unsaturated Iron Binding 62 ug/dL (112-346) L Ferritin > 2000 NG/ML (8-388) H Total Bilirubin 1.5 MG/DL (0.2-1.0) H 1.5 MG/DL (0.2-1.0) H 1.5 MG/DL (0.2-1.0) H Direct Bilirubin 0.1 MG/DL (0.0-0.3) 0.2 MG/DL (0.0-0.3) 0.2 MG/DL (0.0-0.3) Aspartate Amino Transf (AST/SGOT) 15 U/L (15-37) 851 U/L (15-37) H Alanine Aminotransferase (ALT/SGPT) 8 U/L (12-78) L 434 U/L (12-78) H Alkaline Phosphatase 445 U/L (46-116) H 391 U/L (46-116) H Ammonia 47 umol/L (11-32) H Lactate Dehydrogenase 208 U/L (81-234) Total Protein 6.6 G/DL (6.4-8.2) 4.8 G/DL (6.4-8.2) L Albumin 2.5 G/DL (3.4-5.0) L 2.1 G/DL (3.4-5.0) L Globulin 4.1 g/dL Albumin/Globulin Ratio 0.6 (1.0-2.7) L Lipase 52 U/L (73-393) L Vitamin B12 Level 378 PG/ML (193-986) Folate 7.2 NG/ML (8.6-58.9) L Thyroid Stimulating Hormone (TSH) 1.864 uiU/mL (0.358-3.740) Human Chorionic Gonadotropin, Qual Negative Other Cell Type Pathologist comment Polychromasia 1+ Anisocytosis 1+ 1+ 1+ Macrocytosis 1+ Erythrocyte Sedimentation Rate 115 MM/HR (0-20) H Haptoglobin Pending Uric Acid 6.7 MG/DL (2.6-7.2) Total Creatine Kinase 75 U/L (26-308) Hypochromasia 1+ 1+ Magnesium Level 2.3 MG/DL (1.8-2.4) Troponin I 0.056 ng/mL (0.000-0.056) Pro-B-Type Natriuretic Peptide 6927 pg/mL (0-125) H Layne Enamorado MD Oct 09, 2017 11:16
--- NOTE | 2017-10-09 11:25 | Pre-Procedure Note/Attestation ---
Pre-Procedure Note/Attestation Complete Prior to Procedure Planned Procedure: not applicable Procedure Narrative: egd Indications for Procedure Pre-Operative Diagnosis: gib Attestation I attest that I discussed the nature of the procedure; its benefits; risks and complications; and alternatives (and the risks and benefits of such alternatives ), prior to the procedure, with the patient (or the patient's legal route sales representative). I attest that, if there was a reasonable possibility of needing a blood transfusion, the patient (or the patient's legal route sales representative) was given the [facility] standardized written summary, pursuant to the Bj Sunita Blood Safety Act ([place] Health and Safety Code # 1645, as amended). I attest that I re-evaluated the patient just prior to the surgery and that there has been no change in the patient's H&P, except as documented below: NATASHA SAUER Oct 09, 2017 11:25
--- NOTE | 2017-10-09 11:32 | 48 Hour Post Anesthesia Eval ---
Post Anesthesia Evaluation Procedure: EGD Date of Evaluation: Oct 11, 2017 Time of Evaluation: 11:24 Blood Pressure Systolic: 130 0: 72 Pulse Rate: 98 Respiratory Rate: 18 Temperature (Fahrenheit): 98 O2 Sat by Pulse Oximetry: 99 Airway: patent Nausea: No Vomiting: No Pain Intensity: 0 Hydration Status: adequate Mental Status/LOC: patient returned to baseline Post-Anesthesia Complications: none Follow-up care needed: ready to discharge Hema Sanchez M.D. Oct 09, 2017 11:32
--- NOTE | 2017-10-09 11:48 | Endoscopy Procedure Note ---
Endoscopy Procedure Note General Indication for Procedure: gib Procedures Performed: EGD Operative Findings/Diagnosis: mwt Specimen: none Pt Tolerated Procedure Well: Yes Estimated Blood Loss: none Anesthesia Anesthesiologist: see chart Anesthesia: MAC Inserted Devices Implant(s) used?: No GI Core Measures 50 yrs or older w/o bx or poly: Not Applicable 10yrs. F/U not recommended: Not Applicable NATASHA SAUER Oct 09, 2017 11:48
[2017-10-09] MEDS ORDERED: NovoLOG Insulin Flexpen SUBQ ONE (11:50)
[2017-10-09] MEDS ORDERED: Heparin 2000 units/Ns 1000ml INJ ONE (12:00)
[2017-10-09] MEDS ORDERED: Lidocaine 1% Plain 30 ml INJ ONE (12:00)
[2017-10-09] MEDS: D5NS 1,000 ML IV SCH (13:00)
--- NOTE | 2017-10-09 13:00 | Procedure Note ---
DATE OF PROCEDURE: 10/09/2017 SURGEON: Clint Montelongo M.D. ANESTHESIOLOGIST: Hema Sanchez M.D. REFERRING PHYSICIAN: Myke Olmos M.D. PROCEDURE: Upper endoscopy and hemostasis. ANESTHESIA: Per Dr. Sanchez. INSTRUMENT: Olympus adult flexible upper endoscope. INDICATION: Upper GI bleeding. The procedure, risks, benefits, and possible consequences, including hemorrhage, aspiration, perforation and infection, and alternative treatments, were explained to the patient/legal guardian by Dr. Clint Montelongo and the patient/legal guardian understood and accepted these risks. DESCRIPTION OF PROCEDURE: After informed consent was obtained and the patient was adequately sedated, Olympus upper endoscope was advanced through the mouth into the second portion of duodenum and retroflexion was performed in the stomach. The patient had a lot of blood clots sitting in the proximal stomach making examination of the body and fundus of the stomach very limited. There was no active bleeding in the duodenum. There was no active bleeding in the antrum. Most of the blood clot was sitting in the proximal body of the stomach. The patient had evidence of hiatal hernia. There was a Patsy-Clarke tear, may be the source of bleeding. We were not sure, but since that was the only thing we could see, we decided to do hemostasis. First, we used a 16-[place] clip which did not help much, so then we started our epinephrine injection. We injected about 3 mL of 1:10,000 dilution of epinephrine at this Patsy-Clarke tear and then used a gold probe to cauterize the area, which was successful. The patient tolerated the procedure very well without any complication. SUMMARY OF FINDINGS: 1. Limited examination given there was a clot sitting in the stomach. 2. Bleeding, possibly from a Patsy-Clarke tear, status post Hemoclip, epinephrine injection, and gold probe cauterization. RECOMMENDATIONS: The patient to be kept n.p.o. Continue on Protonix drip. Discontinue octreotide drip. Monitor hemoglobin and hematocrit and transfuse to keep hemoglobin above 7. Dialysis per Nephrology. I want to thank Dr. Olmos for this kind referral. Clint Alessandra Montelongo DR: Humaira JOB#: [id number] CC:
[2017-10-09] MEDS: Acetaminophen 650 MG SUPP RECTAL PRN (13:30)
--- NOTE | 2017-10-09 16:03 | Infectious Diseases Prog Note ---
Assessment/Plan Assessment/Plan Full consult dictated: A) 1) gib, leukocytosis, abdominal pain, ? sepsis, low bp, ? line infection, right foot blister/? infected, fx 2) esrd, hd, hd line 3) pmh noted P) 1) vancomycin, cefepime and flagyl 2) check blood cultures, labs 3) surgery evaluation, podiatry evaluation 4) d/w Dr. Snell 5) thank you Subjective Allergies: Coded Allergies: CODEINE (Unverified Allergy, Unknown, 10/16/14) IODINE (Unverified Allergy, Unknown, 10/16/14) MORPHINE (Unverified Allergy, Unknown, 10/16/14) PENICILLINS (Unverified Allergy, Unknown, 10/16/14) Objective Vital Signs Last 24 Hour Vital Signs Date Time Temp Pulse Resp B/P (MAP) Pulse Ox O2 Delivery O2 Flow Rate FiO2 10/09/17 15:51 99.1 10/09/17 13:30 99.1 10/09/17 11:32 208.4 98 18 99 10/09/17 10:00 99.3 84 16 105/57 98 Room Air 99.3 10/09/17 09:00 83 16 87/48 98 Room Air 10/09/17 08:00 99.4 83 15 109/60 100 Room Air 99.4 10/09/17 07:00 84 16 108/54 98 Room Air 10/09/17 06:00 85 15 103/39 96 Room Air 10/09/17 05:00 87 15 92/45 96 Room Air 10/09/17 04:00 98.4 86 15 98/50 100 Room Air 98.4 10/09/17 04:00 84 10/09/17 03:00 98.4 88 16 96/49 99 Room Air 98.4 10/09/17 02:00 98.9 88 17 96/49 100 Nasal Cannula 2.0 98.9 10/09/17 01:00 100 Nasal Cannula 2.0 28 10/09/17 00:00 98.9 87 18 96/52 100 Nasal Cannula 2.0 98.9 10/08/17 23:00 87 18 100/62 100 Nasal Cannula 2.0 10/08/17 22:00 97.4 89 16 110/62 100 Nasal Cannula 2.0 97.4 10/08/17 21:00 81 18 92/54 100 Nasal Cannula 2.0 10/08/17 20:10 90/45 10/08/17 20:00 83 10/08/17 20:00 97.4 81 18 91/54 100 Nasal Cannula 2.0 97.4 10/08/17 19:30 Nasal Cannula 2.0 28 10/08/17 19:00 83 17 84/57 100 Nasal Cannula 2.0 10/08/17 18:00 97.4 83 16 80/48 100 Nasal Cannula 2.0 97.4 10/08/17 18:00 97.4 83 16 90/51 96 Nasal Cannula 2.0 97.4 10/08/17 17:49 97.4 83 16 90/51 96 Nasal Cannula 2.0 97.4 10/08/17 17:35 97.4 84 13 88/51 96 Nasal Cannula 2.0 97.4 10/08/17 17:30 97.4 85 18 83/52 95 Nasal Cannula 2.0 97.4 10/08/17 17:27 97.1 85 12 79/57 96 Nasal Cannula 2.0 97.1 10/08/17 17:20 97.1 85 18 81/47 96 Nasal Cannula 2.0 97.1 10/08/17 16:43 97.8 81 18 80/46 96 Nasal Cannula 2.0 97.8 Height (Feet): 5 Height (Inches): 4.00 Weight (Pounds): 150 Laboratory Tests Test 10/08/17 20:50 10/09/17 03:00 10/09/17 09:50 White Blood Count 15.7 K/UL (4.8-10.8) H 15.4 K/UL (4.8-10.8) H 19.0 K/UL (4.8-10.8) H Red Blood Count 2.22 M/UL (4.20-5.40) L 2.02 M/UL (4.20-5.40) L 2.58 M/UL (4.20-5.40) L Hemoglobin 7.1 G/DL (12.0-16.0) L 6.3 G/DL (12.0-16.0) *L 8.0 G/DL (12.0-16.0) L Hematocrit 21.7 % (37.0-47.0) L 19.4 % (37.0-47.0) L 24.1 % (37.0-47.0) L Mean Corpuscular Volume 98 FL (80-99) 96 FL (80-99) 94 FL (80-99) Mean Corpuscular Hemoglobin 31.8 PG (27.0-31.0) H 31.3 PG (27.0-31.0) H 31.1 PG (27.0-31.0) H Mean Corpuscular Hemoglobin Concent 32.6 G/DL (32.0-36.0) 32.7 G/DL (32.0-36.0) 33.2 G/DL (32.0-36.0) Red Cell Distribution Width 15.6 % (11.6-14.8) H 15.8 % (11.6-14.8) H 15.5 % (11.6-14.8) H Platelet Count 265 K/UL (150-450) 217 K/UL (150-450) 209 K/UL (150-450) Mean Platelet Volume 7.8 FL (6.5-10.1) 8.3 FL (6.5-10.1) 8.1 FL (6.5-10.1) Neutrophils (%) (Auto) % (45.0-75.0) % (45.0-75.0) % (45.0-75.0) Lymphocytes (%) (Auto) % (20.0-45.0) % (20.0-45.0) % (20.0-45.0) Monocytes (%) (Auto) % (1.0-10.0) % (1.0-10.0) % (1.0-10.0) Eosinophils (%) (Auto) % (0.0-3.0) % (0.0-3.0) % (0.0-3.0) Basophils (%) (Auto) % (0.0-2.0) % (0.0-2.0) % (0.0-2.0) Differential Total Cells Counted 100 100 100 Neutrophils % (Manual) 91 % (45-75) H 89 % (45-75) H 91 % (45-75) H Lymphocytes % (Manual) 8 % (20-45) L 8 % (20-45) L 6 % (20-45) L Monocytes % (Manual) 1 % (1-10) 3 % (1-10) 3 % (1-10) Eosinophils % (Manual) 0 % (0-3) 0 % (0-3) 0 % (0-3) Basophils % (Manual) 0 % (0-2) 0 % (0-2) 0 % (0-2) Band Neutrophils 0 % (0-8) 0 % (0-8) 0 % (0-8) Other Cell Type Pathologist comment Platelet Estimate Adequate Adequate Adequate Platelet Morphology Normal Normal Normal Polychromasia 1+ Anisocytosis 1+ 1+ 1+ Macrocytosis 1+ Erythrocyte Sedimentation Rate 115 MM/HR (0-20) H Haptoglobin Pending Prothrombin Time 12.8 SEC (9.30-11.50) H Prothromb Time International Ratio 1.2 (0.9-1.1) H Activated Partial Thromboplast Time 28 SEC (23-33) Uric Acid 6.7 MG/DL (2.6-7.2) Total Creatine Kinase 75 U/L (26-308) Hypochromasia 1+ 1+ Sodium Level 137 MMOL/L (136-145) 135 MMOL/L (136-145) L Potassium Level 7.0 MMOL/L (3.5-5.1) #*H 6.1 MMOL/L (3.5-5.1) *H Chloride Level 101 MMOL/L (98-107) 102 MMOL/L (98-107) Carbon Dioxide Level 22 MMOL/L (21-32) 19 MMOL/L (21-32) L Anion Gap 14 mmol/L (5-15) 16 mmol/L (5-15) H Blood Urea Nitrogen 95 mg/dL (7-18) H 113 mg/dL (7-18) H Creatinine 7.1 MG/DL (0.55-1.30) H 7.2 MG/DL (0.55-1.30) H Estimat Glomerular Filtration Rate 6.4 mL/min (>60) 6.2 mL/min (>60) Glucose Level 158 MG/DL (74-106) H 303 MG/DL (74-106) #H Calcium Level 8.1 MG/DL (8.5-10.1) L 8.3 MG/DL (8.5-10.1) L Magnesium Level 2.3 MG/DL (1.8-2.4) Total Bilirubin 1.5 MG/DL (0.2-1.0) H 1.5 MG/DL (0.2-1.0) H Direct Bilirubin 0.2 MG/DL (0.0-0.3) 0.2 MG/DL (0.0-0.3) Aspartate Amino Transf (AST/SGOT) 851 U/L (15-37) H Alanine Aminotransferase (ALT/SGPT) 434 U/L (12-78) H Alkaline Phosphatase 391 U/L (46-116) H Troponin I 0.056 ng/mL (0.000-0.056) Pro-B-Type Natriuretic Peptide 6927 pg/mL (0-125) H Total Protein 4.8 G/DL (6.4-8.2) L Albumin 2.1 G/DL (3.4-5.0) L Current Medications Medications (Trade) Dose Ordered Sig/Loida Route PRN Reason Start Time Stop Time Status Last Admin Dose Admin Acetaminophen (Tylenol) 650 mg Q4H PRN ORAL Mild Pain (Scale 1-3)/Fever 10/08/17 16:15 11/07/17 16:14 10/09/17 04:17 Acetaminophen (Tylenol) 650 mg Q4H PRN RECTAL Mild Pain (1-3)/Fever 10/08/17 16:15 11/07/17 16:14 10/09/17 13:30 Dextrose (Dextrose 50%) 25 ml STAT PRN IV Hypoglycemia BS 60-69 mg/dL 10/08/17 17:00 11/07/17 16:59 Dextrose (Dextrose 50%) 50 ml STAT PRN IV Hypoglycemia BS < 60 mg/dL 10/08/17 16:15 11/07/17 16:14 Dextrose/Sodium Chloride 1,000 ml @ 50 mls/hr Q20H IV 10/08/17 17:00 11/07/17 16:59 10/08/17 18:26 Dopamine HCl/ Dextrose 250 ml @ 0 mls/hr Q24H IV 10/08/17 20:10 11/07/17 20:09 Hydromorphone HCl (Dilaudid) 0.5 mg Q4H PRN IVP Mod-Severe pain 4-10 10/09/17 19:30 10/16/17 15:29 10/09/17 15:51 Octreotide Acetate 500 mcg/ Sodium Chloride 500 ml @ 50 mls/hr Q10H IV 10/09/17 00:30 11/08/17 00:29 10/09/17 10:55 Ondansetron HCl (Zofran) 4 mg Q6H PRN IVP Nausea & Vomiting 10/08/17 16:15 11/07/17 16:14 Pantoprazole 80 mg/Sodium Chloride 250 ml @ 25 mls/hr Q10H IV 10/08/17 18:00 11/07/17 17:59 10/09/17 04:06 Temazepam (Restoril) 15 mg HSPRN PRN ORAL Insomnia 10/08/17 22:45 10/15/17 22:44 10/08/17 23:17 GENE FLORES Oct 09, 2017 16:03
[2017-10-09] MEDS ORDERED: Vancomycin 1250mg/D5W 250ml IVPB ONE ×2 (17:00)
--- NOTE | 2017-10-09 17:00 | Consultation ---
DATE OF CONSULTATION: 10/09/2017 HEMATOLOGY/ONCOLOGY CONSULTATION CONSULTING PHYSICIAN: Tushar Galdamez MD REQUESTING PHYSICIAN: Myke Olmos M.D. and Channing Mejia M.D. REASON FOR CONSULTATION: Evaluation of anemia in the presence of alloantibodies and history of transfusion reaction. IDENTIFICATION DATA: Dear Dr. 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 The patient to receive 2 units of blood, had already been ordered, and to undergo GI procedure with endoscopy. Anemia workup has been ordered, thus far reveals the patient has hyperferritinemia and mostly unconjugated bilirubin. Abdomen and pelvis CAT scan reviewed shows large hiatal hernia, cholelithiasis, diverticulosis, atrophic bill moore's slough kidneys, 5 mm right lower lobe lung nodule. Hematology/Oncology Service consulted for evaluation. PAST MEDICAL HISTORY: Hypertension; end-stage renal disease, on dialysis; history of failed kidney transplant. PAST SURGICAL HISTORY: Noncontributory. SOCIAL HISTORY: Lives at home. No alcohol, tobacco, or illicit drug use. FAMILY HISTORY: Noncontributory. ALLERGIES: Codeine, iodine, morphine, penicillin. REVIEW OF SYSTEMS: CONSTITUTIONAL: No fevers, chills, or night sweats. SKIN: No rashes, bumps, or itching. HEENT: No headache, hearing, or vision changes. BREASTS: No lumps, pain, or discharge. PULMONARY: No cough, sputum, or shortness of breath. GASTROINTESTINAL: No nausea, vomiting, or diarrhea. GENITOURINARY: No dysuria, frequency, or urgency. MUSCULOSKELETAL: No joint swelling, muscle pain, or trauma. PHYSICAL EXAMINATION: VITAL SIGNS: Reviewed. LABORATORY DATA: Potassium of 7, BUN of 95, creatinine 7.1. AST of 851, ALT of 434. INR 1.2. Hemoglobin 6.3, WBC 15, and reticulocyte count 3.1. ASSESSMENT AND RECOMMENDATIONS: 1. Anemia due to underlying gastrointestinal bleed. Closely monitor for ongoing bleed. Anemia workup is pending. Hemoglobin goal is above 7. The patient has alloantibodies, therefore, needs to be typed and crossed for those given potential for autoimmune hemolytic anemia. Cris test has been ordered thus far, closely monitor for improvement. Total bilirubin and direct bilirubin will be obtained. Total bilirubin and direct bilirubin has been ordered. 2. Leukocytosis, likely secondary to stress reaction. Closely monitor. 3. Anemia due to underlying kidney disease. The patient's ferritin is above 2000, therefore, does not require any further iron at this time. Given GI bleed, continue Sandostatin and Protonix for 72 hours. 4. Coagulopathy, potentially secondary to DIC process. 5. Hypotension due to hemorrhagic shock. Closely monitor and consider using pressors per Cardiology. 6. End-stage renal disease, on dialysis. 7. History of failed transplant. I appreciate consultation. Tushar Galdamez M.D. DR: Manny JOB#: [id number] CC:
[2017-10-09] MEDS: LORazepam Inj 2mg/ml 1ml IV PRN (17:08)
--- NOTE | 2017-10-09 17:29 | Consultation ---
History of Present Illness General Date patient seen: Oct 09, 2017 Chief Complaint: Gastrointestinal Bleed Reason for Consultation: abdominal pain Present Illness HPI 42 year old female with history of ESRD on HD presented with hematemesis and bloody diarrhea. As per patient she was doing well until she began to feel nausea followed by emesis. noted blood in her emesis and came to ED for evaluation. During episodes felt abdominal discomfort and currently has moderate abdominal pain/cramping. Had endoscopy today and blood transfusions. since stable and improving but continues to have abdominal pain. surgery called to evaluate. Allergies: Coded Allergies: CODEINE (Unverified Allergy, Unknown, 10/16/14) IODINE (Unverified Allergy, Unknown, 10/16/14) MORPHINE (Unverified Allergy, Unknown, 10/16/14) PENICILLINS (Unverified Allergy, Unknown, 10/16/14) Medication History Scheduled Hydromorphone Hcl (Dilaudid), 8 MG PO DAILY, (Reported) Lisinopril (Lisinopril*), 5 MG ORAL DAILY, (Reported) Scheduled PRN Diphenhydramine Hcl* (Benadryl*), 25 MG ORAL Q6H PRN for Itching, (Reported) Patient History History Provided By: Patient, Medical Record, PMD Healthcare decision maker self Resuscitation status Advanced Directive on File Past Medical/Surgical History Past Medical/Surgical History: (1) Hemorrhage of arteriovenous fistula (2) Hemorrhage of arteriovenous fistula (3) Severe anemia (4) Hemorrhagic shock (5) ESRD (end stage renal disease) (6) Upper GI bleed Review of Systems All Other Systems: negative except mentioned in HPI Physical Exam General Appearance: alert Lines, tubes and drains: central line HEENT: normocephalic, mucous membranes moist Neck: supple Respiratory/Chest: lungs clear, normal breath sounds, no respiratory distress, no accessory muscle use Cardiovascular/Chest: normal peripheral pulses Abdomen: normal bowel sounds, soft, no organomegaly, no mass, tender, other - soft, generalized tenderness without rebound/guarding/or peritonitis Extremities: normal inspection Skin Exam: normal pigmentation Neurologic: alert, oriented x 3 Last 24 Hour Vital Signs Date Time Temp Pulse Resp B/P (MAP) Pulse Ox O2 Delivery O2 Flow Rate FiO2 10/09/17 16:21 99.1 10/09/17 15:51 99.1 10/09/17 14:00 99.1 10/09/17 13:30 99.1 10/09/17 12:00 89 10/09/17 11:32 208.4 98 18 99 10/09/17 10:00 99.3 84 16 105/57 98 Room Air 99.3 10/09/17 09:00 83 16 87/48 98 Room Air 10/09/17 08:00 99.4 83 15 109/60 100 Room Air 99.4 10/09/17 08:00 82 10/09/17 07:00 84 16 108/54 98 Room Air 10/09/17 06:00 85 15 103/39 96 Room Air 10/09/17 05:00 87 15 92/45 96 Room Air 10/09/17 04:00 98.4 86 15 98/50 100 Room Air 98.4 10/09/17 04:00 84 10/09/17 03:00 98.4 88 16 96/49 99 Room Air 98.4 10/09/17 02:00 98.9 88 17 96/49 100 Nasal Cannula 2.0 98.9 10/09/17 01:00 100 Nasal Cannula 2.0 28 10/09/17 00:00 98.9 87 18 96/52 100 Nasal Cannula 2.0 98.9 10/08/17 23:00 87 18 100/62 100 Nasal Cannula 2.0 10/08/17 22:00 97.4 89 16 110/62 100 Nasal Cannula 2.0 97.4 10/08/17 21:00 81 18 92/54 100 Nasal Cannula 2.0 10/08/17 20:10 90/45 10/08/17 20:00 83 10/08/17 20:00 97.4 81 18 91/54 100 Nasal Cannula 2.0 97.4 10/08/17 19:30 Nasal Cannula 2.0 28 10/08/17 19:00 83 17 84/57 100 Nasal Cannula 2.0 10/08/17 18:00 97.4 83 16 80/48 100 Nasal Cannula 2.0 97.4 10/08/17 18:00 97.4 83 16 90/51 96 Nasal Cannula 2.0 97.4 10/08/17 17:49 97.4 83 16 90/51 96 Nasal Cannula 2.0 97.4 10/08/17 17:35 97.4 84 13 88/51 96 Nasal Cannula 2.0 97.4 10/08/17 17:30 97.4 85 18 83/52 95 Nasal Cannula 2.0 97.4 10/08/17 17:27 97.1 85 12 79/57 96 Nasal Cannula 2.0 97.1 Intake and Output 10/08/17 10/09/17 19:00 07:00 Intake Total 0 ml 1500 ml Output Total 50 ml 2 ml Balance -50 ml 1498 ml Intake Oral 0 ml IV Total 1500 ml Output Urine Total 0 ml Stool Total 2 ml Emesis 50 ml 0 ml # Bowel Movements 10 Laboratory Tests Test 10/08/17 20:50 10/09/17 03:00 10/09/17 09:50 White Blood Count 15.7 K/UL (4.8-10.8) H 15.4 K/UL (4.8-10.8) H 19.0 K/UL (4.8-10.8) H Red Blood Count 2.22 M/UL (4.20-5.40) L 2.02 M/UL (4.20-5.40) L 2.58 M/UL (4.20-5.40) L Hemoglobin 7.1 G/DL (12.0-16.0) L 6.3 G/DL (12.0-16.0) *L 8.0 G/DL (12.0-16.0) L Hematocrit 21.7 % (37.0-47.0) L 19.4 % (37.0-47.0) L 24.1 % (37.0-47.0) L Mean Corpuscular Volume 98 FL (80-99) 96 FL (80-99) 94 FL (80-99) Mean Corpuscular Hemoglobin 31.8 PG (27.0-31.0) H 31.3 PG (27.0-31.0) H 31.1 PG (27.0-31.0) H Mean Corpuscular Hemoglobin Concent 32.6 G/DL (32.0-36.0) 32.7 G/DL (32.0-36.0) 33.2 G/DL (32.0-36.0) Red Cell Distribution Width 15.6 % (11.6-14.8) H 15.8 % (11.6-14.8) H 15.5 % (11.6-14.8) H Platelet Count 265 K/UL (150-450) 217 K/UL (150-450) 209 K/UL (150-450) Mean Platelet Volume 7.8 FL (6.5-10.1) 8.3 FL (6.5-10.1) 8.1 FL (6.5-10.1) Neutrophils (%) (Auto) % (45.0-75.0) % (45.0-75.0) % (45.0-75.0) Lymphocytes (%) (Auto) % (20.0-45.0) % (20.0-45.0) % (20.0-45.0) Monocytes (%) (Auto) % (1.0-10.0) % (1.0-10.0) % (1.0-10.0) Eosinophils (%) (Auto) % (0.0-3.0) % (0.0-3.0) % (0.0-3.0) Basophils (%) (Auto) % (0.0-2.0) % (0.0-2.0) % (0.0-2.0) Differential Total Cells Counted 100 100 100 Neutrophils % (Manual) 91 % (45-75) H 89 % (45-75) H 91 % (45-75) H Lymphocytes % (Manual) 8 % (20-45) L 8 % (20-45) L 6 % (20-45) L Monocytes % (Manual) 1 % (1-10) 3 % (1-10) 3 % (1-10) Eosinophils % (Manual) 0 % (0-3) 0 % (0-3) 0 % (0-3) Basophils % (Manual) 0 % (0-2) 0 % (0-2) 0 % (0-2) Band Neutrophils 0 % (0-8) 0 % (0-8) 0 % (0-8) Other Cell Type Pathologist comment Platelet Estimate Adequate Adequate Adequate Platelet Morphology Normal Normal Normal Polychromasia 1+ Anisocytosis 1+ 1+ 1+ Macrocytosis 1+ Erythrocyte Sedimentation Rate 115 MM/HR (0-20) H Haptoglobin Pending Prothrombin Time 12.8 SEC (9.30-11.50) H Prothromb Time International Ratio 1.2 (0.9-1.1) H Activated Partial Thromboplast Time 28 SEC (23-33) Uric Acid 6.7 MG/DL (2.6-7.2) Total Creatine Kinase 75 U/L (26-308) Hypochromasia 1+ 1+ Sodium Level 137 MMOL/L (136-145) 135 MMOL/L (136-145) L Potassium Level 7.0 MMOL/L (3.5-5.1) #*H 6.1 MMOL/L (3.5-5.1) *H Chloride Level 101 MMOL/L (98-107) 102 MMOL/L (98-107) Carbon Dioxide Level 22 MMOL/L (21-32) 19 MMOL/L (21-32) L Anion Gap 14 mmol/L (5-15) 16 mmol/L (5-15) H Blood Urea Nitrogen 95 mg/dL (7-18) H 113 mg/dL (7-18) H Creatinine 7.1 MG/DL (0.55-1.30) H 7.2 MG/DL (0.55-1.30) H Estimat Glomerular Filtration Rate 6.4 mL/min (>60) 6.2 mL/min (>60) Glucose Level 158 MG/DL (74-106) H 303 MG/DL (74-106) #H Calcium Level 8.1 MG/DL (8.5-10.1) L 8.3 MG/DL (8.5-10.1) L Magnesium Level 2.3 MG/DL (1.8-2.4) Total Bilirubin 1.5 MG/DL (0.2-1.0) H 1.5 MG/DL (0.2-1.0) H Direct Bilirubin 0.2 MG/DL (0.0-0.3) 0.2 MG/DL (0.0-0.3) Aspartate Amino Transf (AST/SGOT) 851 U/L (15-37) H Alanine Aminotransferase (ALT/SGPT) 434 U/L (12-78) H Alkaline Phosphatase 391 U/L (46-116) H Troponin I 0.056 ng/mL (0.000-0.056) Pro-B-Type Natriuretic Peptide 6927 pg/mL (0-125) H Total Protein 4.8 G/DL (6.4-8.2) L Albumin 2.1 G/DL (3.4-5.0) L Height (Feet): 5 Height (Inches): 4.00 Weight (Pounds): 150 Medications Current Medications Medications (Trade) Dose Ordered Sig/Loida Route PRN Reason Start Time Stop Time Status Last Admin Dose Admin Acetaminophen (Tylenol) 650 mg Q4H PRN ORAL Mild Pain (Scale 1-3)/Fever 10/08/17 16:15 11/07/17 16:14 10/09/17 04:17 Acetaminophen (Tylenol) 650 mg Q4H PRN RECTAL Mild Pain (1-3)/Fever 10/08/17 16:15 11/07/17 16:14 10/09/17 13:30 Ciprofloxacin 100 ml @ 100 mls/hr Q12HR IV 10/09/17 17:00 10/16/17 16:59 Dextrose (Dextrose 50%) 25 ml STAT PRN IV Hypoglycemia BS 60-69 mg/dL 10/08/17 17:00 11/07/17 16:59 Dextrose (Dextrose 50%) 50 ml STAT PRN IV Hypoglycemia BS < 60 mg/dL 10/08/17 16:15 11/07/17 16:14 Dextrose/Sodium Chloride 1,000 ml @ 50 mls/hr Q20H IV 10/08/17 17:00 11/07/17 16:59 10/09/17 13:00 Dopamine HCl/ Dextrose 250 ml @ 0 mls/hr Q24H IV 10/08/17 20:10 11/07/17 20:09 Hydromorphone HCl (Dilaudid) 0.5 mg Q4H PRN IVP Mod-Severe pain 4-10 10/09/17 19:30 10/16/17 15:29 10/09/17 15:51 Lorazepam (Ativan 2mg/ml 1ml) 0.5 mg Q6H PRN IV For Anxiety 10/09/17 16:45 10/16/17 16:44 10/09/17 17:08 Metronidazole 100 ml @ 100 mls/hr Q8HR IVPB 10/09/17 18:30 10/16/17 18:29 Ondansetron HCl (Zofran) 4 mg Q6H PRN IVP Nausea & Vomiting 10/08/17 16:15 11/07/17 16:14 Pantoprazole 80 mg/Sodium Chloride 250 ml @ 25 mls/hr Q10H IV 10/08/17 18:00 11/07/17 17:59 10/09/17 14:00 Temazepam (Restoril) 15 mg HSPRN PRN ORAL Insomnia 10/08/17 22:45 10/15/17 22:44 10/08/17 23:17 Vancomycin HCl (Vanco rx to dose) 1 ea DAILY PRN MISC Per rx protocol 10/09/17 16:15 11/08/17 16:14 Vancomycin HCl/ Dextrose 250 ml @ 166.667 mls/hr ONCE ONCE IVPB 10/09/17 17:00 10/09/17 18:29 Assessment/Plan Problem List: (1) Abdominal pain Assessment & Plan: CT reviewed. large hiatal hernia but does not seem to be acute complication. lots of blood in GI tract. pain noted on exam but no peritonitis. pain can possibly be related to blood in GI tract vs low flow states from acute blood loss /anemia. will need to keep close eye on her to ensure stable. if worsening pain may need laparoscopy. will hopefully improve with resuscitation. thank you for this consultation. will follow with recs. ICD Codes: R10.9 - Unspecified abdominal pain SNOMED: [id number] Qualifiers: Qualified Codes: R10.84 - Generalized abdominal pain Status: stable Cornell Hong Oct 09, 2017 17:29
[2017-10-09 18:01] LABS: HEMATOCRIT 17.4 % (37.0-47.0); MEAN CORPUSCULAR VOLUME 91 FL (80-99); PLATELET COUNT 167 K/UL (150-450); RED BLOOD COUNT 1.92 M/UL (4.20-5.40); RED CELL DISTRIBUTION WIDTH 14.6 % (11.6-14.8); WHITE BLOOD COUNT 15.4 K/UL (4.8-10.8)
--- NOTE | 2017-10-09 18:22 | Diagnostic Imaging Report ---
Indication: Post line placement Technique: Procedure performed at bedside. Procedural timeout performed. Ultrasound confirms patent compressible external jugular vein. Total sterile technique, including sterile probe cover and sterile gel, sterile gloves, hand hygiene, hat, mask, sterile gown, large sterile drape, and preparation with 2% chlorhexidine utilized.Local anesthesia with 1% lidocaine. Under real-time ultrasound guidance, puncture right external jugular vein using 20-gauge micropuncture needle, passage 0.018 guidewire, insertion 4 [place] micropuncture introducer, exchange for a 0.035 guidewire, over which was passed serial dilators and then a right transjugular central venous catheter. Completion chest radiograph obtained, demonstrating catheter tip position at cavoatrial junction. Impression: Successful placement of right external jugular central venous catheter, as described.
--- NOTE | 2017-10-09 19:57 | General Progress Note ---
Assessment/Plan Problem List: (1) Acute upper GI bleed ICD Codes: K92.2 - Gastrointestinal hemorrhage, unspecified SNOMED: 59112624 (2) Hypotension ICD Codes: I95.9 - Hypotension, unspecified SNOMED: 13252108 (3) Acute blood loss anemia ICD Codes: D62 - Acute posthemorrhagic anemia SNOMED: 567058843 (4) ESRD on HD (5) Hyperkalemia ICD Codes: E87.5 - Hyperkalemia SNOMED: 89122022 (6) Hyponatremia ICD Codes: E87.1 - Hypo-osmolality and hyponatremia SNOMED: 61041793 (7) Lactic acidosis ICD Codes: E87.2 - Acidosis SNOMED: 69991619 (8) Toxic metabolic encephalopathy ICD Codes: G92 - Toxic encephalopathy SNOMED: 290297870 Status: unchanged Assessment/Plan GI consulted s/p EGD on 10/09/17 which was limited 2/2 clot in stomach; per Dr. Montelongo, bleeding, possibly from a Patsy-Clarke tear s/p hemoclip, epinephrine injection , and gold probe cauterization PPI gtt D/c octreotide gtt Trend CBC; transfuse for hgb<7.5 or active bleeding Transfuse 2U pRBCs NPO General surgery consulted given persistent abd pain Cardiology consulted Hold BP meds Pulmonology/critical care consulted Pressors if needed to maintain MAP>60 Monitor respiratory status closely given hematemesis Nephrology consulted Cont HD per renal--plan for HD today Podiatry consulted given recent foot fractures Check R foot x-ray Wound care ID consulted given rising WBC Empiric vanco, cipro and flagyl per ID for intra-abdominal coverage Pain control, bowel regimen Supportive care DVT ppx: SCDs FULL CODE At the time of my involvement, the patient's condition was critical with high potential for and/or physiologic deterioration secondary to acute upper GI bleed, hypotension as delineated in the note above. On the above date of service, I spent a total of 41 minutes in the ICU evaluating, managing, and providing critical care services to this patient, including time spent documenting these activities, counseling patient/family, and coordinating care. Critical care services performed include: Telemetry Review Hemodynamic measurement interpretation Laboratory data review and interpretation Discussion of care plans with patient, family, and/or surrogate decision makers Discussion of patient's care with primary medical team, surgical team, and/or consulting service Decision to obtain further radiologic evaluation, after consideration of risk/ benefit ratio Decision to perform invasive procedure, after consideration of risk/benefit ratio Discussion of patient's code status and further advancement towards the ultimate goals of care D/w pt, family, RN, GI, renal, cardiology, pulmonology regarding mgmt and dispo. D/w GI re EGD results, diet, PPI gtt. D/w surgery re abd exam, CT results. D/w ID re abx. Time of note may not reflect time of encounter. Subjective Date patient seen: Oct 09, 2017 Time patient seen: 14:00 ROS Limited/Unobtainable: No Constitutional: Reports: malaise, weakness HEENT: Reports: no symptoms Cardiovascular: Reports: no symptoms Respiratory: Reports: no symptoms Gastrointestinal/Abdominal: Reports: abdominal pain, black stools, nausea, vomiting Genitourinary: Reports: no symptoms Neurologic/Psychiatric: Reports: no symptoms Endocrine: Reports: no symptoms Hematologic/Lymphatic: Reports: no symptoms Allergies: Coded Allergies: CODEINE (Unverified Allergy, Unknown, 10/16/14) IODINE (Unverified Allergy, Unknown, 10/16/14) MORPHINE (Unverified Allergy, Unknown, 10/16/14) PENICILLINS (Unverified Allergy, Unknown, 10/16/14) Subjective No acute o/n events Hgb 6.3 this AM, being transfuse multiple units of pRBCs s/p EGD today which was limited 2/2 clot in stomach; per Dr. Montelongo, bleeding, possibly from a Patsy-Clarke tear s/p hemoclip, epinephrine injection, and gold probe cauterization Awaiting HD Has not yet needed pressors Pt lethargic, c/o abd pain, some nausea. No further hematemesis since yesterday. Did have black tarry stool today. Objective Last 24 Hour Vital Signs Date Time Temp Pulse Resp B/P (MAP) Pulse Ox O2 Delivery O2 Flow Rate FiO2 10/09/17 18:00 98.0 102 24 99/67 Room Air 98.0 10/09/17 17:20 Room Air 10/09/17 16:21 99.1 10/09/17 16:00 Room Air 10/09/17 16:00 97.8 88 24 100/52 Room Air 97.8 10/09/17 15:51 99.1 10/09/17 14:00 99.1 10/09/17 13:30 99.1 10/09/17 12:00 89 10/09/17 11:32 208.4 98 18 99 10/09/17 10:00 99.3 84 16 105/57 98 Room Air 99.3 10/09/17 09:00 83 16 87/48 98 Room Air 10/09/17 08:00 99.4 83 15 109/60 100 Room Air 99.4 10/09/17 08:00 82 10/09/17 07:00 84 16 108/54 98 Room Air 10/09/17 06:00 85 15 103/39 96 Room Air 10/09/17 05:00 87 15 92/45 96 Room Air 10/09/17 04:00 98.4 86 15 98/50 100 Room Air 98.4 10/09/17 04:00 84 10/09/17 03:00 98.4 88 16 96/49 99 Room Air 98.4 10/09/17 02:00 98.9 88 17 96/49 100 Nasal Cannula 2.0 98.9 10/09/17 01:00 100 Nasal Cannula 2.0 28 10/09/17 00:00 98.9 87 18 96/52 100 Nasal Cannula 2.0 98.9 10/08/17 23:00 87 18 100/62 100 Nasal Cannula 2.0 10/08/17 22:00 97.4 89 16 110/62 100 Nasal Cannula 2.0 97.4 10/08/17 21:00 81 18 92/54 100 Nasal Cannula 2.0 10/08/17 20:10 90/45 10/08/17 20:00 83 10/08/17 20:00 97.4 81 18 91/54 100 Nasal Cannula 2.0 97.4 Intake and Output 10/08/17 10/09/17 19:00 07:00 Intake Total 0 ml 1500 ml Output Total 50 ml 2 ml Balance -50 ml 1498 ml Intake Oral 0 ml IV Total 1500 ml Output Urine Total 0 ml Stool Total 2 ml Emesis 50 ml 0 ml # Bowel Movements 10 Laboratory Tests 10/08/17 20:50: White Blood Count 15.7H, Red Blood Count 2.22L, Hemoglobin 7.1L, Hematocrit 21.7L, Mean Corpuscular Volume 98, Mean Corpuscular Hemoglobin 31.8H, Mean Corpuscular Hemoglobin Concent 32.6, Red Cell Distribution Width 15.6H, Platelet Count 265, Mean Platelet Volume 7.8, Neutrophils (%) (Auto) , Lymphocytes (%) (Auto) , Monocytes (%) (Auto) , Eosinophils (%) (Auto) , Basophils (%) (Auto) , Differential Total Cells Counted 100, Neutrophils % ( Manual) 91H, Lymphocytes % (Manual) 8L, Monocytes % (Manual) 1, Eosinophils % ( Manual) 0, Basophils % (Manual) 0, Band Neutrophils 0, Other Cell Type Pathologist comment, Platelet Estimate Adequate, Platelet Morphology Normal, Polychromasia 1+, Anisocytosis 1+, Macrocytosis 1+, Erythrocyte Sedimentation Rate 115H, Haptoglobin [Pending], Prothrombin Time 12.8H, Prothromb Time International Ratio 1.2H, Activated Partial Thromboplast Time 28, Uric Acid 6.7 , Total Creatine Kinase 75 10/09/17 03:00: White Blood Count 15.4H, Red Blood Count 2.02L, Hemoglobin 6.3*L, Hematocrit 19.4L, Mean Corpuscular Volume 96, Mean Corpuscular Hemoglobin 31.3H, Mean Corpuscular Hemoglobin Concent 32.7, Red Cell Distribution Width 15.8H, Platelet Count 217, Mean Platelet Volume 8.3, Neutrophils (%) (Auto) , Lymphocytes (%) (Auto) , Monocytes (%) (Auto) , Eosinophils (%) (Auto) , Basophils (%) (Auto) , Differential Total Cells Counted 100, Neutrophils % ( Manual) 89H, Lymphocytes % (Manual) 8L, Monocytes % (Manual) 3, Eosinophils % ( Manual) 0, Basophils % (Manual) 0, Band Neutrophils 0, Platelet Estimate Adequate, Platelet Morphology Normal, Anisocytosis 1+, Hypochromasia 1+, Sodium Level 137, Potassium Level 7.0#*H, Chloride Level 101, Carbon Dioxide Level 22, Anion Gap 14, Blood Urea Nitrogen 95H, Creatinine 7.1H, Estimat Glomerular Filtration Rate 6.4, Glucose Level 158H, Calcium Level 8.1L, Magnesium Level 2.3 , Total Bilirubin 1.5H, Direct Bilirubin 0.2, Aspartate Amino Transf (AST/SGOT) 851H, Alanine Aminotransferase (ALT/SGPT) 434H, Alkaline Phosphatase 391H, Troponin I 0.056, Pro-B-Type Natriuretic Peptide 6927H, Total Protein 4.8L, Albumin 2.1L 10/09/17 09:50: White Blood Count 19.0H, Red Blood Count 2.58L, Hemoglobin 8.0L, Hematocrit 24.1L, Mean Corpuscular Volume 94, Mean Corpuscular Hemoglobin 31.1H, Mean Corpuscular Hemoglobin Concent 33.2, Red Cell Distribution Width 15.5H, Platelet Count 209, Mean Platelet Volume 8.1, Neutrophils (%) (Auto) , Lymphocytes (%) (Auto) , Monocytes (%) (Auto) , Eosinophils (%) (Auto) , Basophils (%) (Auto) , Differential Total Cells Counted 100, Neutrophils % ( Manual) 91H, Lymphocytes % (Manual) 6L, Monocytes % (Manual) 3, Eosinophils % ( Manual) 0, Basophils % (Manual) 0, Band Neutrophils 0, Platelet Estimate Adequate, Platelet Morphology Normal, Anisocytosis 1+, Hypochromasia 1+, Sodium Level 135L, Potassium Level 6.1*H, Chloride Level 102, Carbon Dioxide Level 19L , Anion Gap 16H, Blood Urea Nitrogen 113H, Creatinine 7.2H, Estimat Glomerular Filtration Rate 6.2, Glucose Level 303#H, Calcium Level 8.3L, Total Bilirubin 1.5H, Direct Bilirubin 0.2 10/09/17 17:35: White Blood Count 15.4H, Red Blood Count 1.92L, Hemoglobin 6.0*L, Hematocrit 17.4L, Mean Corpuscular Volume 91, Mean Corpuscular Hemoglobin 31.1H, Mean Corpuscular Hemoglobin Concent 34.3, Red Cell Distribution Width 14.6, Platelet Count 167, Mean Platelet Volume 7.4, Neutrophils (%) (Auto) , Lymphocytes (%) ( Auto) , Monocytes (%) (Auto) , Eosinophils (%) (Auto) , Basophils (%) (Auto) , Differential Total Cells Counted 100, Neutrophils % (Manual) 77H, Lymphocytes % (Manual) 7L, Monocytes % (Manual) 2, Eosinophils % (Manual) 0, Basophils % ( Manual) 0, Band Neutrophils 14H, Platelet Estimate Adequate, Platelet Morphology Normal, Anisocytosis 1+, Hypochromasia 1+, Microcytosis 1+, C- Reactive Protein, Quantitative 18.8H Height (Feet): 5 Height (Inches): 4.00 Weight (Pounds): 150 Objective General: alert, cooperative, no distress, appears stated age, lethargic Head: normocephalic, without obvious abnormality, atraumatic Eyes: conjunctivae/corneas clear. PERRL, EOM's intact Throat: lips, mucosa, and tongue normal. MMM Neck: supple, symmetrical, trachea midline, and no JVD Lungs: clear to auscultation bilaterally Heart: regular rate and rhythm, S1, S2 normal, no murmur, click, rub or gallop Abdomen: soft, +TTP of abd diffusely w/o rebound/guarding, non-distended, bowel sounds normal Extremities: extremities normal, atraumatic, no cyanosis or edema Pulses: 2+ and symmetric Skin: skin color, texture, turgor normal; no rashes or lesions Neurologic: grossly normal, no focal deficits Channing Mejia M.D. Oct 09, 2017 19:57
[2017-10-09] MEDS: DOPamine 400mg/250ml 250 ML IV SCH (20:10)
[2017-10-09] MEDS: Dyna-Hex 2% Top Sol 2oz TOPIC SCH (20:33)
--- NOTE | 2017-10-09 23:00 | Consultation ---
DATE OF CONSULTATION: 10/09/2017 CONSULTING PHYSICIAN: Angel Abdul M.D. REASON FOR HOSPITALIZATION: GI bleed and right foot fracture. HISTORY OF PRESENT ILLNESS: The patient states that she was walking up a ramp on her way to dialysis when she slipped and hit the dorsum of the right foot against the metal object. She denies any trips or falls or hitting her head. She states immediately after that, she started having a dull, pulsating, constant pain to the dorsum of the right foot. She was taken to the ER at [facility] and she states that she had "metatarsal" fracture and multiple parts of the right foot. She is not sure which metatarsals were affected. She states it is difficulty to dorsiflex and plantarflexing the right 2 to 5 MPJ due to pain. She was placed in posterior splint and sent home. She states she is nonweightbearing in the right lower extremity right now. She states she had a blister and she wants to go see a doctor across the street from [facility] who popped the blister for her. She states that her pain is 7 to 10 and some times 8 to 10, which is better with narcotic medication. PAST MEDICAL HISTORY: Hypertension, heart disease, GI bleed, need for dialysis, anxiety, and anuria. PAST SURGICAL HISTORY: Unknown. ALLERGIES: Codeine, iodine, morphine, and penicillin. SCHEDULED MEDICATIONS: Lisinopril and hydromorphone. PHYSICAL EXAMINATION: GENERAL: Alert and oriented x3, NAD. VITAL SIGNS: Temperature 99.1, pulse 98, respiratory rate 18, and O2 saturation 99% on room air. EXTREMITIES: Right foot has 2+ nonpitting edema with ecchymosis down to the medial heel, right dorsal foot, and plantar lateral right foot. Capillary refill time is less than three seconds to the right foot. Foot is warm to touch. She is able to slightly dorsiflex and plantarflex the digits of the MPJ levels 1 through 5; however, she is guarding and is unable to do so to the full extent. There is severe pain noted to metatarsals 3, 4, and 5 of the right foot. There is pain noted to be MPJ 3, 4, and 5 of the right foot. Epicritic sensation is intact to the right foot. Sharp dull sensation is intact. There is a blister, which is open through dorsum of the right foot with surrounding ecchymosis, which measures approximately 2.5 cm x 3.0 cm with minimal serous drainage and sanguineous drainage. A 2+ nonpitting edema to the right dorsal forefoot area. The patient has 4/5 strength; however, she is guarding in dorsiflexion; therefore, dorsiflexion exam could not be done. There is pain to inversion of the right foot. The patient can feel my fingers to digits 1 through 5. Minimal amount of diminished sensation is noted to the dorsum of the right forefoot and mid foot area. LABORATORY AND DIAGNOSTIC DATA: This morning, white count 19.0, hemoglobin 8.0, hematocrit 24.1, and platelet count 209. ESR 115 ASSESSMENT: 1. Metatarsal fracture of the right foot 2. Pain of the right foot. 3. Generalized edema. 4. Hematoma of the right foot. PLAN: Hematoma has already been evacuated. We will cleanse it and apply Xeroform to this area and cover with 4 x 4 and then cast padding, posterior splint, and then I wrapped around the right foot just below the tibial tuberosity. She will be nonweightbearing until further notice. We will order another x-ray three views nonweightbearing of the right foot to evaluate the extent of the fracture. Discussed that she will likely need surgical intervention if fracture fragments are greater than 2 mm. Discussed this in detail with the patient. Discussed that she will likely require 4 to 6 weeks of nonweightbearing therapy. We will order a surgical shoe for her at this time. Until further notice, we will continue with posterior splint and elevation of the right foot under two pillows. Her pain is under adequate control, and there are no acute signs of soft tissue infection at this time. We will continue to follow with the patient. Angel Abdul M.D. DR: Antonino JOB#: [id number] CC: BARTOLOME
[2017-10-10] VITALS (29 sets, daily range): BP systolic 44–145; BP diastolic 28–89
[2017-10-10] MEDS: LORazepam Inj 2mg/ml 1ml IV PRN (01:46)
[2017-10-10] MEDS: Pantoprazole 80 MG in NS 250 ML IV SCH ×3 (01:54→20:00)
[2017-10-10 05:51] LABS: HEMATOCRIT 30.5 % (37.0-47.0); HEMOGLOBIN 11.1 G/DL (12.0-16.0); MEAN CORPUSCULAR VOLUME 87 FL (80-99); PLATELET COUNT 193 K/UL (150-450); WHITE BLOOD COUNT 12.1 K/UL (4.8-10.8)
[2017-10-10 05:55] LABS: CREATINE KINASE 70 U/L (26-308); GAMMA GLUTAMYL TRANSPEPTIDASE 37 U/L (5-85); PHOSPHORUS 4.9 MG/DL (2.5-4.9)
[2017-10-10 05:57] LABS: ALANINE AMINOTRANSFERASE 260 U/L (12-78); ALBUMIN 1.8 G/DL (3.4-5.0); ALBUMIN/GLOBULIN RATIO 0.5 (1.0-2.7); ALKALINE PHOSPHATASE 269 U/L (46-116); ANION GAP 14 mmol/L (5-15); ASPARTATE AMINO TRANSFERASE 199 U/L (15-37); BILIRUBIN,TOTAL 1.3 MG/DL (0.2-1.0); BLOOD UREA NITROGEN 108 mg/dL (7-18); CALCIUM 8.3 MG/DL (8.5-10.1); CARBON DIOXIDE 20 MMOL/L (21-32); CHLORIDE 104 MMOL/L (98-107); CHOLESTEROL 93 MG/DL (< 200); HDL CHOLESTEROL 12 MG/DL (40-60); SODIUM 138 MMOL/L (136-145); TRIGLYCERIDES 228 MG/DL (30-150)
[2017-10-10 06:00] LABS: POTASSIUM 6.1 MMOL/L (3.5-5.1)
[2017-10-10 06:02] LABS: BILIRUBIN,DIRECT 0.3 MG/DL (0.0-0.3)
[2017-10-10] MEDS ORDERED: NS IVPB SCH (08:00)
[2017-10-10] MEDS ORDERED: D5 1/2NS 1000ml IV ONE (08:00)
[2017-10-10] MEDS ORDERED: Propofol 200mg/20ml IV ONE (08:00)
[2017-10-10] MEDS ORDERED: ERYTHROMYCIN IVPB SCH (08:00)
[2017-10-10] MEDS ORDERED: Midazolam 2mg/2ml Inj ONE (08:00)
[2017-10-10] MEDS: D5NS 1,000 ML IV SCH (09:09)
--- NOTE | 2017-10-10 09:39 | Pulmonolgy Critical Care Note ---
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 Critical Care - Objective Last 24 Hour Vital Signs Date Time Temp Pulse Resp B/P (MAP) Pulse Ox O2 Delivery O2 Flow Rate FiO2 10/10/17 09:00 95 20 95/60 96 Nasal Cannula 2.0 95 10/10/17 08:00 98.7 92 20 114/89 96 Nasal Cannula 2.0 98.7 92 10/10/17 08:00 93 10/10/17 07:00 93 20 104/55 96 Nasal Cannula 2.0 90 10/10/17 06:55 98.0 10/10/17 06:00 90 17 103/65 96 Nasal Cannula 2.0 90 10/10/17 05:00 93 20 88/64 95 Nasal Cannula 2.0 93 10/10/17 04:00 98.0 86 20 88/64 95 Nasal Cannula 2.0 98.0 95 10/10/17 04:00 99 10/10/17 03:00 88 16 107/55 95 Nasal Cannula 2.0 95 10/10/17 02:00 99 20 145/75 95 Nasal Cannula 2.0 95 10/10/17 01:00 99 20 145/75 95 Nasal Cannula 2.0 95 10/10/17 00:00 100 10/10/17 00:00 97.8 94 20 122/75 95 Nasal Cannula 2.0 97.8 95 10/09/17 23:00 87 16 116/67 95 Room Air 95 10/09/17 22:00 86 16 96/33 95 Room Air 95 10/09/17 21:00 89 16 90/42 95 Room Air 95 10/09/17 20:10 122/55 10/09/17 20:00 95 10/09/17 20:00 98.0 95 19 132/76 95 Room Air 98.0 95 10/09/17 18:00 98.0 102 24 99/67 Room Air 98.0 10/09/17 17:20 Room Air 10/09/17 16:00 92 10/09/17 16:00 Room Air 10/09/17 16:00 97.8 88 24 100/52 Room Air 97.8 10/09/17 15:51 99.1 10/09/17 15:00 91 16 102/47 98 Room Air 10/09/17 14:00 99.1 10/09/17 14:00 90 16 94/51 98 Room Air 10/09/17 13:30 99.1 10/09/17 13:00 90 16 99/59 98 Room Air 10/09/17 12:00 89 10/09/17 11:32 208.4 98 18 99 10/09/17 10:00 99.3 84 16 105/57 98 Room Air 99.3 Status: awake Condition: critical HEENT: atraumatic Neck: full ROM Lungs: chest wall tender Heart: HR/BP stable Abdomen: soft, feeding tube Extremities: edema Decubiti: location Accucheck: 144 Critical Care - Subjective ROS Limited/Unobtainable: Yes ICU Day: 2 Condition: critical EKG Rhythm: Sinus Rhythm FI02: 28 Fluids: d5NS 50 cc/hour Drips: protonix drip I&O: Intake and Output 10/09/17 10/10/17 19:00 07:00 Intake Total 846.66 ml 1000 ml Output Total 0 ml 300 ml Balance 846.66 ml 700 ml IV Total 846.66 ml 1000 ml Output Urine Total 0 ml 0 ml Emesis 0 ml 300 ml Hemodialysis UF 0 ml # Voids 3 # Bowel Movements 11 CXR: no change Labs: Laboratory Tests Test 10/09/17 09:50 10/09/17 17:35 10/10/17 04:40 White Blood Count 19.0 K/UL (4.8-10.8) H 15.4 K/UL (4.8-10.8) H 12.1 K/UL (4.8-10.8) H Red Blood Count 2.58 M/UL (4.20-5.40) L 1.92 M/UL (4.20-5.40) L 3.50 M/UL (4.20-5.40) L Hemoglobin 8.0 G/DL (12.0-16.0) L 6.0 G/DL (12.0-16.0) *L 11.1 G/DL (12.0-16.0) #L Hematocrit 24.1 % (37.0-47.0) L 17.4 % (37.0-47.0) L 30.5 % (37.0-47.0) #L Mean Corpuscular Volume 94 FL (80-99) 91 FL (80-99) 87 FL (80-99) Mean Corpuscular Hemoglobin 31.1 PG (27.0-31.0) H 31.1 PG (27.0-31.0) H 31.7 PG (27.0-31.0) H Mean Corpuscular Hemoglobin Concent 33.2 G/DL (32.0-36.0) 34.3 G/DL (32.0-36.0) 36.3 G/DL (32.0-36.0) H Red Cell Distribution Width 15.5 % (11.6-14.8) H 14.6 % (11.6-14.8) 15.0 % (11.6-14.8) H Platelet Count 209 K/UL (150-450) 167 K/UL (150-450) 193 K/UL (150-450) Mean Platelet Volume 8.1 FL (6.5-10.1) 7.4 FL (6.5-10.1) 7.8 FL (6.5-10.1) Neutrophils (%) (Auto) % (45.0-75.0) % (45.0-75.0) % (45.0-75.0) Lymphocytes (%) (Auto) % (20.0-45.0) % (20.0-45.0) % (20.0-45.0) Monocytes (%) (Auto) % (1.0-10.0) % (1.0-10.0) % (1.0-10.0) Eosinophils (%) (Auto) % (0.0-3.0) % (0.0-3.0) % (0.0-3.0) Basophils (%) (Auto) % (0.0-2.0) % (0.0-2.0) % (0.0-2.0) Differential Total Cells Counted 100 100 Neutrophils % (Manual) 91 % (45-75) H 77 % (45-75) H Lymphocytes % (Manual) 6 % (20-45) L 7 % (20-45) L Monocytes % (Manual) 3 % (1-10) 2 % (1-10) Eosinophils % (Manual) 0 % (0-3) 0 % (0-3) Basophils % (Manual) 0 % (0-2) 0 % (0-2) Band Neutrophils 0 % (0-8) 14 % (0-8) H Platelet Estimate Adequate Adequate Platelet Morphology Normal Normal Hypochromasia 1+ 1+ Anisocytosis 1+ 1+ Sodium Level 135 MMOL/L (136-145) L 138 MMOL/L (136-145) Potassium Level 6.1 MMOL/L (3.5-5.1) *H 6.1 MMOL/L (3.5-5.1) *H Chloride Level 102 MMOL/L (98-107) 104 MMOL/L (98-107) Carbon Dioxide Level 19 MMOL/L (21-32) L 20 MMOL/L (21-32) L Anion Gap 16 mmol/L (5-15) H 14 mmol/L (5-15) Blood Urea Nitrogen 113 mg/dL (7-18) H 108 mg/dL (7-18) H Creatinine 7.2 MG/DL (0.55-1.30) H 6.0 MG/DL (0.55-1.30) H Estimat Glomerular Filtration Rate 6.2 mL/min (>60) 7.7 mL/min (>60) Glucose Level 303 MG/DL (74-106) #H 136 MG/DL (74-106) #H Calcium Level 8.3 MG/DL (8.5-10.1) L 8.3 MG/DL (8.5-10.1) L Total Bilirubin 1.5 MG/DL (0.2-1.0) H 1.3 MG/DL (0.2-1.0) H Direct Bilirubin 0.2 MG/DL (0.0-0.3) 0.3 MG/DL (0.0-0.3) Microcytosis 1+ C-Reactive Protein, Quantitative 18.8 mg/dL (0.00-0.90) H Hemoglobin A1c 5.5 % (4.3-6.0) Uric Acid 5.8 MG/DL (2.6-7.2) Phosphorus Level 4.9 MG/DL (2.5-4.9) Magnesium Level 2.1 MG/DL (1.8-2.4) Gamma Glutamyl Transpeptidase 37 U/L (5-85) Aspartate Amino Transf (AST/SGOT) 199 U/L (15-37) H Alanine Aminotransferase (ALT/SGPT) 260 U/L (12-78) H Alkaline Phosphatase 269 U/L (46-116) H Total Creatine Kinase 70 U/L (26-308) Troponin I 0.064 ng/mL (0.000-0.056) Pro-B-Type Natriuretic Peptide 6026 pg/mL (0-125) H Total Protein 5.3 G/DL (6.4-8.2) L Albumin 1.8 G/DL (3.4-5.0) L Globulin 3.5 g/dL Albumin/Globulin Ratio 0.5 (1.0-2.7) L Triglycerides Level 228 MG/DL (30-150) H Cholesterol Level 93 MG/DL (< 200) LDL Cholesterol 22 mg/dL (<100) HDL Cholesterol 12 MG/DL (40-60) L Cholesterol/HDL Ratio 7.8 (3.3-4.4) H Layne Enamorado MD Oct 10, 2017 09:39
--- NOTE | 2017-10-10 09:52 | Diagnostic Imaging Report ---
Indication: Pain Comparison: None Findings: 3 views of the right foot were obtained. Study is significantly limited because of the cast material. There is evidence of second metatarsal base fracture and a probable fracture of the third metatarsal base not evaluated well on this study. The bones appear osteopenic. There are vascular calcifications present. Soft tissue swelling is present. IMPRESSION: Acute fractures involving the second and probable third metatarsal base
--- NOTE | 2017-10-10 10:13 | Anethesia Preoperative Eval ---
Anesthesia Pre-op PMH/ROS General Date of Evaluation: Oct 10, 2017 Time of Evaluation: 09:50 Anesthesiologist: Zoraida ASA Score: ASA 4 Mallampati Score Class I : Soft palate, uvula, fauces, pillars visible Class II: Soft palate, uvula, fauces visible Class III: Soft palate, base of uvula visible Class IV: Only hard plate visible Mallampati Classification: Class III Surgeon: Jody Diagnosis: Upper GI bleed Surgical Procedure: EGD Anesthesia History: none Family History: no anesthesia problems Allergies: Coded Allergies: CODEINE (Unverified Allergy, Unknown, 10/16/14) IODINE (Unverified Allergy, Unknown, 10/16/14) MORPHINE (Unverified Allergy, Unknown, 10/16/14) PENICILLINS (Unverified Allergy, Unknown, 10/16/14) Past Medical History Cardiovascular: Reports: HTN; Denies: CAD, [place], valve dz, arrhythmia, other Pulmonary: Reports: TAMMIE Gastrointestinal/Genitourinary: Reports: GERD, ESRD - on HD; Denies: CRI, other Neurologic/Psychiatric: Reports: depression/anxiety; Denies: dementia, CVA, TIA, other Endocrine: Denies: DM, hypothyroidism, steroids, other HEENT: Denies: cataract (L), cataract (R), glaucoma, [place] (L), [place] (R), other Hematology/Immune: Reports: anemia - severe posthemorhagic anemia + chronic d-s ; Denies: DVT, bleeding disorder, other Musculoskeletal/Integumentary: Reports: other - osteopenia ; Denies: OA, RA, DJD, DDD, edema PMH Narrative: Was admitted 2 days ago for active upper GI bleed with hemodynamic instability multiple blood transfusion. PSxH Narrative: Failed kidney transplant, placement and revisions of bilateral A-V shunts and dialysis catheter placements, peritoneal dialyses access Anesthesia Pre-op Phys. Exam Physician Exam Last Vital Signs Date Time Temp Pulse Resp B/P (MAP) Pulse Ox O2 Delivery O2 Flow Rate FiO2 10/10/17 09:00 95 20 95/60 96 Nasal Cannula 2.0 95 10/10/17 08:00 98.7 98.7 10/09/17 01:00 28 Constitutional: NAD Neurologic: CN 2-12 intact Cardiovascular: RRR, no M/R/G Respiratory: CTA Gastrointestinal: other - tender in epigastrium, mildly distended Airway Exam Mallampati Score: Class III MO: limited Neck: stiff Teeth: missing Dentures: no upper, no lower Anesthesia Pre-op A/P Labs Hematology Test 10/09/17 17:35 10/10/17 04:40 White Blood Count 15.4 K/UL (4.8-10.8) H 12.1 K/UL (4.8-10.8) H Red Blood Count 1.92 M/UL (4.20-5.40) L 3.50 M/UL (4.20-5.40) L Hemoglobin 6.0 G/DL (12.0-16.0) *L 11.1 G/DL (12.0-16.0) #L Hematocrit 17.4 % (37.0-47.0) L 30.5 % (37.0-47.0) #L Mean Corpuscular Volume 91 FL (80-99) 87 FL (80-99) Mean Corpuscular Hemoglobin 31.1 PG (27.0-31.0) H 31.7 PG (27.0-31.0) H Mean Corpuscular Hemoglobin Concent 34.3 G/DL (32.0-36.0) 36.3 G/DL (32.0-36.0) H Red Cell Distribution Width 14.6 % (11.6-14.8) 15.0 % (11.6-14.8) H Platelet Count 167 K/UL (150-450) 193 K/UL (150-450) Mean Platelet Volume 7.4 FL (6.5-10.1) 7.8 FL (6.5-10.1) Neutrophils (%) (Auto) % (45.0-75.0) % (45.0-75.0) Lymphocytes (%) (Auto) % (20.0-45.0) % (20.0-45.0) Monocytes (%) (Auto) % (1.0-10.0) % (1.0-10.0) Eosinophils (%) (Auto) % (0.0-3.0) % (0.0-3.0) Basophils (%) (Auto) % (0.0-2.0) % (0.0-2.0) Differential Total Cells Counted 100 Neutrophils % (Manual) 77 % (45-75) H Lymphocytes % (Manual) 7 % (20-45) L Monocytes % (Manual) 2 % (1-10) Eosinophils % (Manual) 0 % (0-3) Basophils % (Manual) 0 % (0-2) Band Neutrophils 14 % (0-8) H Platelet Estimate Adequate Platelet Morphology Normal Hypochromasia 1+ Anisocytosis 1+ Microcytosis 1+ Chemistry Test 10/09/17 17:35 10/10/17 04:40 C-Reactive Protein, Quantitative 18.8 mg/dL (0.00-0.90) H Sodium Level 138 MMOL/L (136-145) Potassium Level 6.1 MMOL/L (3.5-5.1) *H Chloride Level 104 MMOL/L (98-107) Carbon Dioxide Level 20 MMOL/L (21-32) L Anion Gap 14 mmol/L (5-15) Blood Urea Nitrogen 108 mg/dL (7-18) H Creatinine 6.0 MG/DL (0.55-1.30) H Estimat Glomerular Filtration Rate 7.7 mL/min (>60) Glucose Level 136 MG/DL (74-106) #H Hemoglobin A1c 5.5 % (4.3-6.0) Uric Acid 5.8 MG/DL (2.6-7.2) Calcium Level 8.3 MG/DL (8.5-10.1) L Phosphorus Level 4.9 MG/DL (2.5-4.9) Magnesium Level 2.1 MG/DL (1.8-2.4) Total Bilirubin 1.3 MG/DL (0.2-1.0) H Direct Bilirubin 0.3 MG/DL (0.0-0.3) Gamma Glutamyl Transpeptidase 37 U/L (5-85) Aspartate Amino Transf (AST/SGOT) 199 U/L (15-37) H Alanine Aminotransferase (ALT/SGPT) 260 U/L (12-78) H Alkaline Phosphatase 269 U/L (46-116) H Total Creatine Kinase 70 U/L (26-308) Troponin I 0.064 ng/mL (0.000-0.056) Pro-B-Type Natriuretic Peptide 6026 pg/mL (0-125) H Total Protein 5.3 G/DL (6.4-8.2) L Albumin 1.8 G/DL (3.4-5.0) L Globulin 3.5 g/dL Albumin/Globulin Ratio 0.5 (1.0-2.7) L Triglycerides Level 228 MG/DL (30-150) H Cholesterol Level 93 MG/DL (< 200) LDL Cholesterol 22 mg/dL (<100) HDL Cholesterol 12 MG/DL (40-60) L Cholesterol/HDL Ratio 7.8 (3.3-4.4) H Risk Assessment & Plan Assessment: ASA 4 hemodynamically stable at the moment alert oriented Plan: MAC for at bed side EGD possible respiratory support if necessary Status Change Before Surgery: No Pre-Antibiotics Drug: none CARLOS A KEY M.D. Oct 10, 2017 10:13
[2017-10-10] MEDS ORDERED: Midazolam 2mg/2ml Inj IVP SCH (10:30)
--- NOTE | 2017-10-10 11:01 | Pre-Procedure Note/Attestation ---
Pre-Procedure Note/Attestation Complete Prior to Procedure Planned Procedure: not applicable Procedure Narrative: EGD Indications for Procedure Pre-Operative Diagnosis: UGIB Attestation I attest that I discussed the nature of the procedure; its benefits; risks and complications; and alternatives (and the risks and benefits of such alternatives ), prior to the procedure, with the patient (or the patient's legal customer account representative). I attest that, if there was a reasonable possibility of needing a blood transfusion, the patient (or the patient's legal customer account representative) was given the [facility] standardized written summary, pursuant to the [place] Blood Safety Act ([place] Health and Safety Code # 1645, as amended). I attest that I re-evaluated the patient just prior to the surgery and that there has been no change in the patient's H&P, except as documented below: ARTEMIO MADDOX Oct 10, 2017 11:01
--- NOTE | 2017-10-10 11:30 | Nephrology Progress Note ---
Assessment/Plan Problem List: (1) ESRD on HD (2) Acute blood loss anemia (3) Upper GI bleed Assessment ESRD on HD for 12 years h/o failed kidney transplant High K GI Bleed, continues Hypotension Plan Plan Transfuse- HD ordered yesterday , not done apparantly due to low BP, but no one informed me ! Endoscopy again- dialysis today- ICU setting until stablizes Subjective ROS Limited/Unobtainable: No Objective Objective Last 24 Hour Vital Signs Date Time Temp Pulse Resp B/P (MAP) Pulse Ox O2 Delivery O2 Flow Rate FiO2 10/10/17 09:00 95 20 95/60 96 Nasal Cannula 2.0 95 10/10/17 08:00 98.7 92 20 114/89 96 Nasal Cannula 2.0 98.7 92 10/10/17 08:00 93 10/10/17 07:00 93 20 104/55 96 Nasal Cannula 2.0 90 10/10/17 06:55 98.0 10/10/17 06:00 90 17 103/65 96 Nasal Cannula 2.0 90 10/10/17 05:00 93 20 88/64 95 Nasal Cannula 2.0 93 10/10/17 04:00 98.0 86 20 88/64 95 Nasal Cannula 2.0 98.0 95 10/10/17 04:00 99 10/10/17 03:00 88 16 107/55 95 Nasal Cannula 2.0 95 10/10/17 02:00 99 20 145/75 95 Nasal Cannula 2.0 95 10/10/17 01:00 99 20 145/75 95 Nasal Cannula 2.0 95 10/10/17 00:00 100 10/10/17 00:00 97.8 94 20 122/75 95 Nasal Cannula 2.0 97.8 95 10/09/17 23:00 87 16 116/67 95 Room Air 95 10/09/17 22:00 86 16 96/33 95 Room Air 95 10/09/17 21:00 89 16 90/42 95 Room Air 95 10/09/17 20:10 122/55 10/09/17 20:00 95 10/09/17 20:00 98.0 95 19 132/76 95 Room Air 98.0 95 10/09/17 18:00 98.0 102 24 99/67 Room Air 98.0 10/09/17 17:20 Room Air 10/09/17 16:00 92 10/09/17 16:00 Room Air 10/09/17 16:00 97.8 88 24 100/52 Room Air 97.8 10/09/17 15:51 99.1 10/09/17 15:00 91 16 102/47 98 Room Air 10/09/17 14:00 99.1 10/09/17 14:00 90 16 94/51 98 Room Air 10/09/17 13:30 99.1 10/09/17 13:00 90 16 99/59 98 Room Air 10/09/17 12:00 89 10/09/17 11:32 208.4 98 18 99 Intake and Output 10/09/17 10/10/17 19:00 07:00 Intake Total 846.66 ml 1000 ml Output Total 0 ml 300 ml Balance 846.66 ml 700 ml IV Total 846.66 ml 1000 ml Output Urine Total 0 ml 0 ml Emesis 0 ml 300 ml Hemodialysis UF 0 ml # Voids 3 # Bowel Movements 11 Laboratory Tests 10/09/17 17:35: White Blood Count 15.4H, Red Blood Count 1.92L, Hemoglobin 6.0*L, Hematocrit 17.4L, Mean Corpuscular Volume 91, Mean Corpuscular Hemoglobin 31.1H, Mean Corpuscular Hemoglobin Concent 34.3, Red Cell Distribution Width 14.6, Platelet Count 167, Mean Platelet Volume 7.4, Neutrophils (%) (Auto) , Lymphocytes (%) ( Auto) , Monocytes (%) (Auto) , Eosinophils (%) (Auto) , Basophils (%) (Auto) , Differential Total Cells Counted 100, Neutrophils % (Manual) 77H, Lymphocytes % (Manual) 7L, Monocytes % (Manual) 2, Eosinophils % (Manual) 0, Basophils % ( Manual) 0, Band Neutrophils 14H, Platelet Estimate Adequate, Platelet Morphology Normal, Hypochromasia 1+, Anisocytosis 1+, Microcytosis 1+, C- Reactive Protein, Quantitative 18.8H 10/10/17 04:40: White Blood Count 12.1H, Red Blood Count 3.50L, Hemoglobin 11.1#L, Hematocrit 30.5#L, Mean Corpuscular Volume 87, Mean Corpuscular Hemoglobin 31.7H, Mean Corpuscular Hemoglobin Concent 36.3H, Red Cell Distribution Width 15.0H, Platelet Count 193, Mean Platelet Volume 7.8, Neutrophils (%) (Auto) , Lymphocytes (%) (Auto) , Monocytes (%) (Auto) , Eosinophils (%) (Auto) , Basophils (%) (Auto) , Sodium Level 138, Potassium Level 6.1*H, Chloride Level 104, Carbon Dioxide Level 20L, Anion Gap 14, Blood Urea Nitrogen 108H, Creatinine 6.0H, Estimat Glomerular Filtration Rate 7.7, Glucose Level 136#H, Hemoglobin A1c 5.5, Uric Acid 5.8, Calcium Level 8.3L, Phosphorus Level 4.9, Magnesium Level 2.1, Total Bilirubin 1.3H, Direct Bilirubin 0.3, Gamma Glutamyl Transpeptidase 37, Aspartate Amino Transf (AST/SGOT) 199H, Alanine Aminotransferase (ALT/SGPT) 260H, Alkaline Phosphatase 269H, Total Creatine Kinase 70, Troponin I 0.064H, Pro-B-Type Natriuretic Peptide 6026H, Total Protein 5.3L, Albumin 1.8L, Globulin 3.5, Albumin/Globulin Ratio 0.5L, Triglycerides Level 228H, Cholesterol Level 93, LDL Cholesterol 22, HDL Cholesterol 12L, Cholesterol/HDL Ratio 7.8H Height (Feet): 5 Height (Inches): 4.00 Weight (Pounds): 159 General Appearance: no apparent distress, lethargic Respiratory/Chest: decreased breath sounds Abdomen: soft BARTOLO SHARMA Oct 10, 2017 11:30
--- NOTE | 2017-10-10 11:43 | General Surgery Progress Note ---
General Surgery-Progress Note Subjective Additional Comments transfused prbc with good response. plan for repeat endoscopy today. still with abdominal pain but states mildly better. no n/v/f/c. Objective Last 24 Hour Vital Signs Date Time Temp Pulse Resp B/P (MAP) Pulse Ox O2 Delivery O2 Flow Rate FiO2 10/10/17 09:00 95 20 95/60 96 Nasal Cannula 2.0 95 10/10/17 08:00 98.7 92 20 114/89 96 Nasal Cannula 2.0 98.7 92 10/10/17 08:00 93 10/10/17 07:00 93 20 104/55 96 Nasal Cannula 2.0 90 10/10/17 06:55 98.0 10/10/17 06:00 90 17 103/65 96 Nasal Cannula 2.0 90 10/10/17 05:00 93 20 88/64 95 Nasal Cannula 2.0 93 10/10/17 04:00 98.0 86 20 88/64 95 Nasal Cannula 2.0 98.0 95 10/10/17 04:00 99 10/10/17 03:00 88 16 107/55 95 Nasal Cannula 2.0 95 10/10/17 02:00 99 20 145/75 95 Nasal Cannula 2.0 95 10/10/17 01:00 99 20 145/75 95 Nasal Cannula 2.0 95 10/10/17 00:00 100 10/10/17 00:00 97.8 94 20 122/75 95 Nasal Cannula 2.0 97.8 95 10/09/17 23:00 87 16 116/67 95 Room Air 95 10/09/17 22:00 86 16 96/33 95 Room Air 95 10/09/17 21:00 89 16 90/42 95 Room Air 95 10/09/17 20:10 122/55 10/09/17 20:00 95 10/09/17 20:00 98.0 95 19 132/76 95 Room Air 98.0 95 10/09/17 18:00 98.0 102 24 99/67 Room Air 98.0 10/09/17 17:20 Room Air 10/09/17 16:00 92 10/09/17 16:00 Room Air 10/09/17 16:00 97.8 88 24 100/52 Room Air 97.8 10/09/17 15:51 99.1 10/09/17 15:00 91 16 102/47 98 Room Air 10/09/17 14:00 99.1 10/09/17 14:00 90 16 94/51 98 Room Air 10/09/17 13:30 99.1 10/09/17 13:00 90 16 99/59 98 Room Air 10/09/17 12:00 89 I&O Intake and Output 10/09/17 10/10/17 19:00 07:00 Intake Total 846.66 ml 1000 ml Output Total 0 ml 300 ml Balance 846.66 ml 700 ml IV Total 846.66 ml 1000 ml Output Urine Total 0 ml 0 ml Emesis 0 ml 300 ml Hemodialysis UF 0 ml # Voids 3 # Bowel Movements 11 Cardiovascular: RSR Respiratory: clear Abdomen: soft, distended, tenderness Extremities: no cyanosis Laboratory Tests Test 10/09/17 17:35 10/10/17 04:40 White Blood Count 15.4 K/UL (4.8-10.8) H 12.1 K/UL (4.8-10.8) H Red Blood Count 1.92 M/UL (4.20-5.40) L 3.50 M/UL (4.20-5.40) L Hemoglobin 6.0 G/DL (12.0-16.0) *L 11.1 G/DL (12.0-16.0) #L Hematocrit 17.4 % (37.0-47.0) L 30.5 % (37.0-47.0) #L Mean Corpuscular Volume 91 FL (80-99) 87 FL (80-99) Mean Corpuscular Hemoglobin 31.1 PG (27.0-31.0) H 31.7 PG (27.0-31.0) H Mean Corpuscular Hemoglobin Concent 34.3 G/DL (32.0-36.0) 36.3 G/DL (32.0-36.0) H Red Cell Distribution Width 14.6 % (11.6-14.8) 15.0 % (11.6-14.8) H Platelet Count 167 K/UL (150-450) 193 K/UL (150-450) Mean Platelet Volume 7.4 FL (6.5-10.1) 7.8 FL (6.5-10.1) Neutrophils (%) (Auto) % (45.0-75.0) % (45.0-75.0) Lymphocytes (%) (Auto) % (20.0-45.0) % (20.0-45.0) Monocytes (%) (Auto) % (1.0-10.0) % (1.0-10.0) Eosinophils (%) (Auto) % (0.0-3.0) % (0.0-3.0) Basophils (%) (Auto) % (0.0-2.0) % (0.0-2.0) Differential Total Cells Counted 100 Neutrophils % (Manual) 77 % (45-75) H Lymphocytes % (Manual) 7 % (20-45) L Monocytes % (Manual) 2 % (1-10) Eosinophils % (Manual) 0 % (0-3) Basophils % (Manual) 0 % (0-2) Band Neutrophils 14 % (0-8) H Platelet Estimate Adequate Platelet Morphology Normal Hypochromasia 1+ Anisocytosis 1+ Microcytosis 1+ C-Reactive Protein, Quantitative 18.8 mg/dL (0.00-0.90) H Sodium Level 138 MMOL/L (136-145) Potassium Level 6.1 MMOL/L (3.5-5.1) *H Chloride Level 104 MMOL/L (98-107) Carbon Dioxide Level 20 MMOL/L (21-32) L Anion Gap 14 mmol/L (5-15) Blood Urea Nitrogen 108 mg/dL (7-18) H Creatinine 6.0 MG/DL (0.55-1.30) H Estimat Glomerular Filtration Rate 7.7 mL/min (>60) Glucose Level 136 MG/DL (74-106) #H Hemoglobin A1c 5.5 % (4.3-6.0) Uric Acid 5.8 MG/DL (2.6-7.2) Calcium Level 8.3 MG/DL (8.5-10.1) L Phosphorus Level 4.9 MG/DL (2.5-4.9) Magnesium Level 2.1 MG/DL (1.8-2.4) Total Bilirubin 1.3 MG/DL (0.2-1.0) H Direct Bilirubin 0.3 MG/DL (0.0-0.3) Gamma Glutamyl Transpeptidase 37 U/L (5-85) Aspartate Amino Transf (AST/SGOT) 199 U/L (15-37) H Alanine Aminotransferase (ALT/SGPT) 260 U/L (12-78) H Alkaline Phosphatase 269 U/L (46-116) H Total Creatine Kinase 70 U/L (26-308) Troponin I 0.064 ng/mL (0.000-0.056) Pro-B-Type Natriuretic Peptide 6026 pg/mL (0-125) H Total Protein 5.3 G/DL (6.4-8.2) L Albumin 1.8 G/DL (3.4-5.0) L Globulin 3.5 g/dL Albumin/Globulin Ratio 0.5 (1.0-2.7) L Triglycerides Level 228 MG/DL (30-150) H Cholesterol Level 93 MG/DL (< 200) LDL Cholesterol 22 mg/dL (<100) HDL Cholesterol 12 MG/DL (40-60) L Cholesterol/HDL Ratio 7.8 (3.3-4.4) H Plan Problems: (1) Abdominal pain Assessment & Plan: CT reviewed. large hiatal hernia but does not seem to be acute complication. lots of blood in GI tract. pain noted on exam but no peritonitis. pain can possibly be related to blood in GI tract vs low flow states from acute blood loss /anemia. will need to keep close eye on her to ensure stable. if worsening pain may need laparoscopy. will hopefully improve with resuscitation. repeat scope today repeat afternoon labs including lactate thank you for this consultation. will follow with recs. Cornell Hong Oct 10, 2017 11:43
--- NOTE | 2017-10-10 12:01 | Immediate Post-Op Evaluation ---
Immediate Post-Op Evalulation Immediate Post-Op Evalulation Procedure: EGD with evacuation of clots and clip placement Date of Evaluation: Oct 10, 2017 Time of Evaluation: 12:00 IV Fluids: 300 Blood Products: none Estimated Blood Loss: 500 of liquid blood and clots suctioned from the stomach Urinary Output: none Blood Pressure Systolic: 94 Blood Pressure Diastolic: 48 Pulse Rate: 92 Respiratory Rate: 28 O2 Sat by Pulse Oximetry: 95 Temperature (Fahrenheit): 97.3 Pain Score (1-10): 2 Nausea: No Vomiting: No Complications none Patient Status: reacts, patent, none Hydration Status: adequate CARLOS A KEY M.D. Oct 10, 2017 12:01
--- NOTE | 2017-10-10 12:03 | 48 Hour Post Anesthesia Eval ---
Post Anesthesia Evaluation Procedure: EGD with evacuation of clots and clip placement Date of Evaluation: Oct 10, 2017 Time of Evaluation: 13:15 Blood Pressure Systolic: 98 0: 56 Pulse Rate: 86 Respiratory Rate: 22 Temperature (Fahrenheit): 97.6 O2 Sat by Pulse Oximetry: 98 Airway: patent Nausea: No Vomiting: No Pain Intensity: 2 Hydration Status: adequate Cardiopulmonary Status: stable Mental Status/LOC: patient returned to baseline Follow-up Care/Observations: n/a Post-Anesthesia Complications: none Follow-up care needed: N/A CARLOS A KEY M.D. Oct 10, 2017 12:03
[2017-10-10 12:50] LABS: HEMATOCRIT 31.5 % (37.0-47.0); HEMOGLOBIN 10.7 G/DL (12.0-16.0); MEAN CORPUSCULAR VOLUME 88 FL (80-99); PLATELET COUNT 194 K/UL (150-450); RED BLOOD COUNT 3.57 M/UL (4.20-5.40); RED CELL DISTRIBUTION WIDTH 15.3 % (11.6-14.8); WHITE BLOOD COUNT 5.2 K/UL (4.8-10.8)
[2017-10-10] MEDS ORDERED: DiphenhydrAMINE 50mg/ml Inj IVP PRN (13:00)
[2017-10-10 13:14] LABS: ANION GAP 17 mmol/L (5-15); BLOOD UREA NITROGEN 118 mg/dL (7-18); CALCIUM 8.1 MG/DL (8.5-10.1); CARBON DIOXIDE 19 MMOL/L (21-32); CHLORIDE 105 MMOL/L (98-107); CREATININE 6.2 MG/DL (0.55-1.30); SODIUM 140 MMOL/L (136-145)
--- NOTE | 2017-10-10 14:32 | Infectious Diseases Prog Note ---
Assessment/Plan Assessment/Plan Full consult dictated: A) 1) gib, leukocytosis, abdominal pain, ? sepsis, low bp, ? line infection, right foot blister/? infected/?abscess/?cellulitis , fx 2) esrd, hd, hd line, 3) s/p EGD, ct noted 4) allergy pcn P) 1) vancomycin, cipro and flagyl 2) check blood cultures, labs 3) surgery f/u, podiatry f/u, GI f/u 4) continue treatment per Dr. Snell Subjective Constitutional: Reports: fatigue; Denies: fever Respiratory: Denies: shortness of breath Cardiovascular: Denies: chest pain, palpitations Allergies: Coded Allergies: CODEINE (Unverified Allergy, Unknown, 10/16/14) IODINE (Unverified Allergy, Unknown, 10/16/14) MORPHINE (Unverified Allergy, Unknown, 10/16/14) PENICILLINS (Unverified Allergy, Unknown, 10/16/14) Objective Vital Signs Last 24 Hour Vital Signs Date Time Temp Pulse Resp B/P (MAP) Pulse Ox O2 Delivery O2 Flow Rate FiO2 10/10/17 14:00 106 20 140/54 96 Nasal Cannula 2.0 99 10/10/17 13:00 98.8 107 20 98/53 96 Nasal Cannula 2.0 98.8 99 10/10/17 12:03 207.7 86 22 98 10/10/17 12:01 207.1 92 28 95 10/10/17 12:00 101 20 102/67 96 Nasal Cannula 2.0 99 10/10/17 09:00 95 20 95/60 96 Nasal Cannula 2.0 95 10/10/17 08:00 98.7 92 20 114/89 96 Nasal Cannula 2.0 98.7 92 10/10/17 08:00 93 10/10/17 07:00 93 20 104/55 96 Nasal Cannula 2.0 90 10/10/17 06:55 98.0 10/10/17 06:00 90 17 103/65 96 Nasal Cannula 2.0 90 10/10/17 05:00 93 20 88/64 95 Nasal Cannula 2.0 93 10/10/17 04:00 98.0 86 20 88/64 95 Nasal Cannula 2.0 98.0 95 10/10/17 04:00 99 10/10/17 03:00 88 16 107/55 95 Nasal Cannula 2.0 95 10/10/17 02:00 99 20 145/75 95 Nasal Cannula 2.0 95 10/10/17 01:00 99 20 145/75 95 Nasal Cannula 2.0 95 10/10/17 00:00 100 10/10/17 00:00 97.8 94 20 122/75 95 Nasal Cannula 2.0 97.8 95 10/09/17 23:00 87 16 116/67 95 Room Air 95 10/09/17 22:00 86 16 96/33 95 Room Air 95 10/09/17 21:00 89 16 90/42 95 Room Air 95 10/09/17 20:10 122/55 10/09/17 20:00 95 10/09/17 20:00 98.0 95 19 132/76 95 Room Air 98.0 95 10/09/17 18:00 98.0 102 24 99/67 Room Air 98.0 10/09/17 17:20 Room Air 10/09/17 16:00 92 10/09/17 16:00 Room Air 10/09/17 16:00 97.8 88 24 100/52 Room Air 97.8 10/09/17 15:51 99.1 10/09/17 15:00 91 16 102/47 98 Room Air Height (Feet): 5 Height (Inches): 4.00 Weight (Pounds): 159 General Appearance: no acute distress HEENT: normocephalic, atraumatic, anicteric Respiratory/Chest: lungs clear, normal breath sounds, no respiratory distress, no accessory muscle use Cardiovascular: normal rate, regular rhythm Abdomen: normal bowel sounds, soft, non tender - less tender Laboratory Tests Test 10/09/17 17:35 10/10/17 04:40 10/10/17 12:10 10/10/17 13:45 White Blood Count 15.4 K/UL (4.8-10.8) H 12.1 K/UL (4.8-10.8) H 5.2 K/UL (4.8-10.8) # Red Blood Count 1.92 M/UL (4.20-5.40) L 3.50 M/UL (4.20-5.40) L 3.57 M/UL (4.20-5.40) L Hemoglobin 6.0 G/DL (12.0-16.0) *L 11.1 G/DL (12.0-16.0) #L 10.7 G/DL (12.0-16.0) L Hematocrit 17.4 % (37.0-47.0) L 30.5 % (37.0-47.0) #L 31.5 % (37.0-47.0) L Mean Corpuscular Volume 91 FL (80-99) 87 FL (80-99) 88 FL (80-99) Mean Corpuscular Hemoglobin 31.1 PG (27.0-31.0) H 31.7 PG (27.0-31.0) H 30.0 PG (27.0-31.0) Mean Corpuscular Hemoglobin Concent 34.3 G/DL (32.0-36.0) 36.3 G/DL (32.0-36.0) H 34.0 G/DL (32.0-36.0) Red Cell Distribution Width 14.6 % (11.6-14.8) 15.0 % (11.6-14.8) H 15.3 % (11.6-14.8) H Platelet Count 167 K/UL (150-450) 193 K/UL (150-450) 194 K/UL (150-450) Mean Platelet Volume 7.4 FL (6.5-10.1) 7.8 FL (6.5-10.1) 7.6 FL (6.5-10.1) Neutrophils (%) (Auto) % (45.0-75.0) % (45.0-75.0) % (45.0-75.0) Lymphocytes (%) (Auto) % (20.0-45.0) % (20.0-45.0) % (20.0-45.0) Monocytes (%) (Auto) % (1.0-10.0) % (1.0-10.0) % (1.0-10.0) Eosinophils (%) (Auto) % (0.0-3.0) % (0.0-3.0) % (0.0-3.0) Basophils (%) (Auto) % (0.0-2.0) % (0.0-2.0) % (0.0-2.0) Differential Total Cells Counted 100 100 Neutrophils % (Manual) 77 % (45-75) H 48 % (45-75) Lymphocytes % (Manual) 7 % (20-45) L 23 % (20-45) Monocytes % (Manual) 2 % (1-10) 11 % (1-10) H Eosinophils % (Manual) 0 % (0-3) 0 % (0-3) Basophils % (Manual) 0 % (0-2) 0 % (0-2) Band Neutrophils 14 % (0-8) H 17 % (0-8) H Platelet Estimate Adequate Adequate Platelet Morphology Normal Normal Hypochromasia 1+ 1+ Anisocytosis 1+ 1+ Microcytosis 1+ C-Reactive Protein, Quantitative 18.8 mg/dL (0.00-0.90) H Sodium Level 138 MMOL/L (136-145) 140 MMOL/L (136-145) Potassium Level 6.1 MMOL/L (3.5-5.1) *H 6.0 MMOL/L (3.5-5.1) *H Chloride Level 104 MMOL/L (98-107) 105 MMOL/L (98-107) Carbon Dioxide Level 20 MMOL/L (21-32) L 19 MMOL/L (21-32) L Anion Gap 14 mmol/L (5-15) 17 mmol/L (5-15) H Blood Urea Nitrogen 108 mg/dL (7-18) H 118 mg/dL (7-18) H Creatinine 6.0 MG/DL (0.55-1.30) H 6.2 MG/DL (0.55-1.30) H Estimat Glomerular Filtration Rate 7.7 mL/min (>60) 7.4 mL/min (>60) Glucose Level 136 MG/DL (74-106) #H 154 MG/DL (74-106) H Hemoglobin A1c 5.5 % (4.3-6.0) Uric Acid 5.8 MG/DL (2.6-7.2) Calcium Level 8.3 MG/DL (8.5-10.1) L 8.1 MG/DL (8.5-10.1) L Phosphorus Level 4.9 MG/DL (2.5-4.9) Magnesium Level 2.1 MG/DL (1.8-2.4) Total Bilirubin 1.3 MG/DL (0.2-1.0) H Direct Bilirubin 0.3 MG/DL (0.0-0.3) Gamma Glutamyl Transpeptidase 37 U/L (5-85) Aspartate Amino Transf (AST/SGOT) 199 U/L (15-37) H Alanine Aminotransferase (ALT/SGPT) 260 U/L (12-78) H Alkaline Phosphatase 269 U/L (46-116) H Total Creatine Kinase 70 U/L (26-308) Troponin I 0.064 ng/mL (0.000-0.056) Pro-B-Type Natriuretic Peptide 6026 pg/mL (0-125) H Total Protein 5.3 G/DL (6.4-8.2) L Albumin 1.8 G/DL (3.4-5.0) L Globulin 3.5 g/dL Albumin/Globulin Ratio 0.5 (1.0-2.7) L Triglycerides Level 228 MG/DL (30-150) H Cholesterol Level 93 MG/DL (< 200) LDL Cholesterol 22 mg/dL (<100) HDL Cholesterol 12 MG/DL (40-60) L Cholesterol/HDL Ratio 7.8 (3.3-4.4) H Metamyelocytes % 1 % (0-0) H Nucleated Red Blood Cells 2 /100 WBC Polychromasia 1+ Lactic Acid Level 3.70 mmol/L (0.66-2.22) H Pending Current Medications Medications (Trade) Dose Ordered Sig/Loida Route PRN Reason Start Time Stop Time Status Last Admin Dose Admin Acetaminophen (Tylenol) 650 mg Q4H PRN ORAL Mild Pain (Scale 1-3)/Fever 10/08/17 16:15 11/07/17 16:14 10/09/17 04:17 Acetaminophen (Tylenol) 650 mg Q4H PRN RECTAL Mild Pain (1-3)/Fever 10/08/17 16:15 11/07/17 16:14 10/09/17 13:30 Chlorhexidine Gluconate (Ashlie-Hex 2%) 1 applic DAILY@2000 TOPIC 10/09/17 20:00 11/08/17 19:59 10/09/17 20:33 Ciprofloxacin 100 ml @ 100 mls/hr Q12HR IV 10/09/17 17:00 10/16/17 16:59 10/10/17 10:13 Dextrose (Dextrose 50%) 25 ml STAT PRN IV Hypoglycemia BS 60-69 mg/dL 10/08/17 17:00 11/07/17 16:59 Dextrose (Dextrose 50%) 50 ml STAT PRN IV Hypoglycemia BS < 60 mg/dL 10/08/17 16:15 11/07/17 16:14 Dextrose/Sodium Chloride 1,000 ml @ 50 mls/hr Q20H IV 10/08/17 17:00 11/07/17 16:59 10/10/17 09:09 Diphenhydramine HCl (Benadryl) 12.5 mg Q6H PRN IVP Itching 10/10/17 13:00 11/09/17 12:59 10/10/17 13:30 Dopamine HCl/ Dextrose 250 ml @ 0 mls/hr Q24H IV 10/08/17 20:10 11/07/17 20:09 Hydromorphone HCl (Dilaudid) 0.5 mg Q4H PRN IVP Mod-Severe pain 4-10/09/17 19:30 10/16/17 15:29 10/10/17 06:25 Lorazepam (Ativan 2mg/ml 1ml) 0.5 mg Q6H PRN IV For Anxiety 10/09/17 16:45 10/16/17 16:44 10/10/17 01:46 Metronidazole 100 ml @ 100 mls/hr Q8HR IVPB 10/09/17 18:30 10/16/17 18:29 10/10/17 06:17 Ondansetron HCl (Zofran) 4 mg Q6H PRN IVP Nausea & Vomiting 10/08/17 16:15 11/07/17 16:14 10/10/17 00:38 Pantoprazole 80 mg/Sodium Chloride 250 ml @ 25 mls/hr Q10H IV 10/08/17 18:00 11/07/17 17:59 10/10/17 09:09 Temazepam (Restoril) 15 mg HSPRN PRN ORAL Insomnia 10/08/17 22:45 10/15/17 22:44 10/08/17 23:17 Vancomycin HCl (Vanco rx to dose) 1 ea DAILY PRN MISC Per rx protocol 10/09/17 16:15 11/08/17 16:14 GENE FLORES Oct 10, 2017 14:32
--- NOTE | 2017-10-10 15:19 | General Progress Note ---
Assessment/Plan Assessment/Plan Assessment - UGIB, likely due to MWT / ulcer at GEJ/hernia sack/pyloric channel - large Hiatal hernia - abdominal pain and LLQ TTP - suspect a different problem than what was seen in EGD - lactic acidosis - r/o ischemic bowel - ESRD - declining WBC Recommendations - continue PPI - continue Abx - CT abd/pelvis with po contrast (prior done without po contrast) Subjective Allergies: Coded Allergies: CODEINE (Unverified Allergy, Unknown, 10/16/14) IODINE (Unverified Allergy, Unknown, 10/16/14) MORPHINE (Unverified Allergy, Unknown, 10/16/14) PENICILLINS (Unverified Allergy, Unknown, 10/16/14) Subjective Above noted d/w family at bedside d/w Surgery patient c/o abd pain (+) nausea contrast allergy noted - patient stated she had pain and pruritis with IV contrast had EGD this am: - (+) dark blood in stomach, 500-600 cc - large Hiatal hernia - linear/stellate ulcer at GE junction, presumed site of cautery at EGD yesterday, with endoclip nearby - (+) multiple linear long courtney ulcers at hernia sack - 5 mm pyloric channel ulcer - no active bleeding noted - another endoclip placed at GE junction Objective Last 24 Hour Vital Signs Date Time Temp Pulse Resp B/P (MAP) Pulse Ox O2 Delivery O2 Flow Rate FiO2 10/10/17 14:00 106 20 140/54 96 Nasal Cannula 2.0 99 10/10/17 13:00 98.8 107 20 98/53 96 Nasal Cannula 2.0 98.8 99 10/10/17 12:03 207.7 86 22 98 10/10/17 12:01 207.1 92 28 95 10/10/17 12:00 101 20 102/67 96 Nasal Cannula 2.0 99 10/10/17 12:00 99 10/10/17 09:00 95 20 95/60 96 Nasal Cannula 2.0 95 10/10/17 08:00 98.7 92 20 114/89 96 Nasal Cannula 2.0 98.7 92 10/10/17 08:00 93 10/10/17 07:00 93 20 104/55 96 Nasal Cannula 2.0 90 10/10/17 06:55 98.0 10/10/17 06:00 90 17 103/65 96 Nasal Cannula 2.0 90 10/10/17 05:00 93 20 88/64 95 Nasal Cannula 2.0 93 10/10/17 04:00 98.0 86 20 88/64 95 Nasal Cannula 2.0 98.0 95 10/10/17 04:00 99 10/10/17 03:00 88 16 107/55 95 Nasal Cannula 2.0 95 10/10/17 02:00 99 20 145/75 95 Nasal Cannula 2.0 95 10/10/17 01:00 99 20 145/75 95 Nasal Cannula 2.0 95 10/10/17 00:00 100 10/10/17 00:00 97.8 94 20 122/75 95 Nasal Cannula 2.0 97.8 95 10/09/17 23:00 87 16 116/67 95 Room Air 95 10/09/17 22:00 86 16 96/33 95 Room Air 95 10/09/17 21:00 89 16 90/42 95 Room Air 95 10/09/17 20:10 122/55 10/09/17 20:00 95 10/09/17 20:00 98.0 95 19 132/76 95 Room Air 98.0 95 10/09/17 18:00 98.0 102 24 99/67 Room Air 98.0 10/09/17 17:20 Room Air 10/09/17 16:00 92 10/09/17 16:00 Room Air 10/09/17 16:00 97.8 88 24 100/52 Room Air 97.8 10/09/17 15:51 99.1 Intake and Output 10/09/17 10/10/17 19:00 07:00 Intake Total 846.66 ml 1000 ml Output Total 0 ml 300 ml Balance 846.66 ml 700 ml IV Total 846.66 ml 1000 ml Output Urine Total 0 ml 0 ml Emesis 0 ml 300 ml Hemodialysis UF 0 ml # Voids 3 # Bowel Movements 11 Laboratory Tests 10/09/17 17:35: White Blood Count 15.4H, Red Blood Count 1.92L, Hemoglobin 6.0*L, Hematocrit 17.4L, Mean Corpuscular Volume 91, Mean Corpuscular Hemoglobin 31.1H, Mean Corpuscular Hemoglobin Concent 34.3, Red Cell Distribution Width 14.6, Platelet Count 167, Mean Platelet Volume 7.4, Neutrophils (%) (Auto) , Lymphocytes (%) ( Auto) , Monocytes (%) (Auto) , Eosinophils (%) (Auto) , Basophils (%) (Auto) , Differential Total Cells Counted 100, Neutrophils % (Manual) 77H, Lymphocytes % (Manual) 7L, Monocytes % (Manual) 2, Eosinophils % (Manual) 0, Basophils % ( Manual) 0, Band Neutrophils 14H, Platelet Estimate Adequate, Platelet Morphology Normal, Hypochromasia 1+, Anisocytosis 1+, Microcytosis 1+, C- Reactive Protein, Quantitative 18.8H 10/10/17 04:40: White Blood Count 12.1H, Red Blood Count 3.50L, Hemoglobin 11.1#L, Hematocrit 30.5#L, Mean Corpuscular Volume 87, Mean Corpuscular Hemoglobin 31.7H, Mean Corpuscular Hemoglobin Concent 36.3H, Red Cell Distribution Width 15.0H, Platelet Count 193, Mean Platelet Volume 7.8, Neutrophils (%) (Auto) , Lymphocytes (%) (Auto) , Monocytes (%) (Auto) , Eosinophils (%) (Auto) , Basophils (%) (Auto) , Sodium Level 138, Potassium Level 6.1*H, Chloride Level 104, Carbon Dioxide Level 20L, Anion Gap 14, Blood Urea Nitrogen 108H, Creatinine 6.0H, Estimat Glomerular Filtration Rate 7.7, Glucose Level 136#H, Hemoglobin A1c 5.5, Uric Acid 5.8, Calcium Level 8.3L, Phosphorus Level 4.9, Magnesium Level 2.1, Total Bilirubin 1.3H, Direct Bilirubin 0.3, Gamma Glutamyl Transpeptidase 37, Aspartate Amino Transf (AST/SGOT) 199H, Alanine Aminotransferase (ALT/SGPT) 260H, Alkaline Phosphatase 269H, Total Creatine Kinase 70, Troponin I 0.064H, Pro-B-Type Natriuretic Peptide 6026H, Total Protein 5.3L, Albumin 1.8L, Globulin 3.5, Albumin/Globulin Ratio 0.5L, Triglycerides Level 228H, Cholesterol Level 93, LDL Cholesterol 22, HDL Cholesterol 12L, Cholesterol/HDL Ratio 7.8H 10/10/17 12:10: White Blood Count 5.2#, Red Blood Count 3.57L, Hemoglobin 10.7L, Hematocrit 31.5L, Mean Corpuscular Volume 88, Mean Corpuscular Hemoglobin 30.0, Mean Corpuscular Hemoglobin Concent 34.0, Red Cell Distribution Width 15.3H, Platelet Count 194, Mean Platelet Volume 7.6, Neutrophils (%) (Auto) , Lymphocytes (%) (Auto) , Monocytes (%) (Auto) , Eosinophils (%) (Auto) , Basophils (%) (Auto) , Differential Total Cells Counted 100, Neutrophils % ( Manual) 48, Lymphocytes % (Manual) 23, Monocytes % (Manual) 11H, Eosinophils % ( Manual) 0, Basophils % (Manual) 0, Band Neutrophils 17H, Platelet Estimate Adequate, Platelet Morphology Normal, Hypochromasia 1+, Anisocytosis 1+, Sodium Level 140, Potassium Level 6.0*H, Chloride Level 105, Carbon Dioxide Level 19L, Anion Gap 17H, Blood Urea Nitrogen 118H, Creatinine 6.2H, Estimat Glomerular Filtration Rate 7.4, Glucose Level 154H, Calcium Level 8.1L, Metamyelocytes % 1H , Nucleated Red Blood Cells 2, Polychromasia 1+, Lactic Acid Level 3.70H 10/10/17 13:45: Lactic Acid Level 3.10H Height (Feet): 5 Height (Inches): 4.00 Weight (Pounds): 159 Objective WDWN Woman NCAT neck supple CTA RRR abd obese and distended (+) diffiuse TTP joey in LLQ no edema ARTEMIO MADDOX Oct 10, 2017 15:19
--- NOTE | 2017-10-10 15:53 | Cardiac Electrophysiology PN ---
Assessment/Plan Assessment/Plan 1. Hypotension, likely due to hemorrhagic shock. The patient is getting blood transfusion and IV fluid. Did not need pressors. Rule out for myocardial infarction Echocardiogram EF 65% 2. Hematemesis and profound anemia. S/P blood transfusion per Dr Gunter S/P EGD by Dr Park today Stapled ulcer 3. End-stage renal disease, on hemodialysis. 4. History of failed kidney transplant. DW RN in ICU Subjective Subjective Had EGD today. Slightly agitated in sinus tach. Family at bedisde. Objective Last 24 Hour Vital Signs Date Time Temp Pulse Resp B/P (MAP) Pulse Ox O2 Delivery O2 Flow Rate FiO2 10/10/17 15:22 Nasal Cannula 2.0 28 10/10/17 15:22 Nasal Cannula 2.0 28 10/10/17 15:07 Nasal Cannula 2.0 28 10/10/17 15:07 Nasal Cannula 2.0 28 10/10/17 15:00 104 20 103/40 91 Nasal Cannula 2.0 99 10/10/17 14:00 106 20 140/54 96 Nasal Cannula 2.0 99 10/10/17 13:00 98.8 107 20 98/53 96 Nasal Cannula 2.0 98.8 99 10/10/17 12:03 207.7 86 22 98 10/10/17 12:01 207.1 92 28 95 10/10/17 12:00 101 20 102/67 96 Nasal Cannula 2.0 99 10/10/17 12:00 99 10/10/17 09:00 95 20 95/60 96 Nasal Cannula 2.0 95 10/10/17 08:00 98.7 92 20 114/89 96 Nasal Cannula 2.0 98.7 92 10/10/17 08:00 93 10/10/17 07:00 93 20 104/55 96 Nasal Cannula 2.0 90 10/10/17 06:55 98.0 10/10/17 06:00 90 17 103/65 96 Nasal Cannula 2.0 90 10/10/17 05:00 93 20 88/64 95 Nasal Cannula 2.0 93 10/10/17 04:00 98.0 86 20 88/64 95 Nasal Cannula 2.0 98.0 95 10/10/17 04:00 99 10/10/17 03:00 88 16 107/55 95 Nasal Cannula 2.0 95 10/10/17 02:00 99 20 145/75 95 Nasal Cannula 2.0 95 10/10/17 01:00 99 20 145/75 95 Nasal Cannula 2.0 95 10/10/17 00:00 100 10/10/17 00:00 97.8 94 20 122/75 95 Nasal Cannula 2.0 97.8 95 10/09/17 23:00 87 16 116/67 95 Room Air 95 10/09/17 22:00 86 16 96/33 95 Room Air 95 10/09/17 21:00 89 16 90/42 95 Room Air 95 10/09/17 20:10 122/55 10/09/17 20:00 95 10/09/17 20:00 98.0 95 19 132/76 95 Room Air 98.0 95 10/09/17 18:00 98.0 102 24 99/67 Room Air 98.0 10/09/17 17:20 Room Air 10/09/17 16:00 92 10/09/17 16:00 Room Air 10/09/17 16:00 97.8 88 24 100/52 Room Air 97.8 10/09/17 15:51 99.1 Intake and Output 10/09/17 10/10/17 19:00 07:00 Intake Total 846.66 ml 1000 ml Output Total 0 ml 300 ml Balance 846.66 ml 700 ml IV Total 846.66 ml 1000 ml Output Urine Total 0 ml 0 ml Emesis 0 ml 300 ml Hemodialysis UF 0 ml # Voids 3 # Bowel Movements 11 Laboratory Tests Test 10/09/17 17:35 10/10/17 04:40 10/10/17 12:10 10/10/17 13:45 White Blood Count 15.4 K/UL (4.8-10.8) H 12.1 K/UL (4.8-10.8) H 5.2 K/UL (4.8-10.8) # Red Blood Count 1.92 M/UL (4.20-5.40) L 3.50 M/UL (4.20-5.40) L 3.57 M/UL (4.20-5.40) L Hemoglobin 6.0 G/DL (12.0-16.0) *L 11.1 G/DL (12.0-16.0) #L 10.7 G/DL (12.0-16.0) L Hematocrit 17.4 % (37.0-47.0) L 30.5 % (37.0-47.0) #L 31.5 % (37.0-47.0) L Mean Corpuscular Volume 91 FL (80-99) 87 FL (80-99) 88 FL (80-99) Mean Corpuscular Hemoglobin 31.1 PG (27.0-31.0) H 31.7 PG (27.0-31.0) H 30.0 PG (27.0-31.0) Mean Corpuscular Hemoglobin Concent 34.3 G/DL (32.0-36.0) 36.3 G/DL (32.0-36.0) H 34.0 G/DL (32.0-36.0) Red Cell Distribution Width 14.6 % (11.6-14.8) 15.0 % (11.6-14.8) H 15.3 % (11.6-14.8) H Platelet Count 167 K/UL (150-450) 193 K/UL (150-450) 194 K/UL (150-450) Mean Platelet Volume 7.4 FL (6.5-10.1) 7.8 FL (6.5-10.1) 7.6 FL (6.5-10.1) Neutrophils (%) (Auto) % (45.0-75.0) % (45.0-75.0) % (45.0-75.0) Lymphocytes (%) (Auto) % (20.0-45.0) % (20.0-45.0) % (20.0-45.0) Monocytes (%) (Auto) % (1.0-10.0) % (1.0-10.0) % (1.0-10.0) Eosinophils (%) (Auto) % (0.0-3.0) % (0.0-3.0) % (0.0-3.0) Basophils (%) (Auto) % (0.0-2.0) % (0.0-2.0) % (0.0-2.0) Differential Total Cells Counted 100 100 Neutrophils % (Manual) 77 % (45-75) H 48 % (45-75) Lymphocytes % (Manual) 7 % (20-45) L 23 % (20-45) Monocytes % (Manual) 2 % (1-10) 11 % (1-10) H Eosinophils % (Manual) 0 % (0-3) 0 % (0-3) Basophils % (Manual) 0 % (0-2) 0 % (0-2) Band Neutrophils 14 % (0-8) H 17 % (0-8) H Platelet Estimate Adequate Adequate Platelet Morphology Normal Normal Hypochromasia 1+ 1+ Anisocytosis 1+ 1+ Microcytosis 1+ C-Reactive Protein, Quantitative 18.8 mg/dL (0.00-0.90) H Sodium Level 138 MMOL/L (136-145) 140 MMOL/L (136-145) Potassium Level 6.1 MMOL/L (3.5-5.1) *H 6.0 MMOL/L (3.5-5.1) *H Chloride Level 104 MMOL/L (98-107) 105 MMOL/L (98-107) Carbon Dioxide Level 20 MMOL/L (21-32) L 19 MMOL/L (21-32) L Anion Gap 14 mmol/L (5-15) 17 mmol/L (5-15) H Blood Urea Nitrogen 108 mg/dL (7-18) H 118 mg/dL (7-18) H Creatinine 6.0 MG/DL (0.55-1.30) H 6.2 MG/DL (0.55-1.30) H Estimat Glomerular Filtration Rate 7.7 mL/min (>60) 7.4 mL/min (>60) Glucose Level 136 MG/DL (74-106) #H 154 MG/DL (74-106) H Hemoglobin A1c 5.5 % (4.3-6.0) Uric Acid 5.8 MG/DL (2.6-7.2) Calcium Level 8.3 MG/DL (8.5-10.1) L 8.1 MG/DL (8.5-10.1) L Phosphorus Level 4.9 MG/DL (2.5-4.9) Magnesium Level 2.1 MG/DL (1.8-2.4) Total Bilirubin 1.3 MG/DL (0.2-1.0) H Direct Bilirubin 0.3 MG/DL (0.0-0.3) Gamma Glutamyl Transpeptidase 37 U/L (5-85) Aspartate Amino Transf (AST/SGOT) 199 U/L (15-37) H Alanine Aminotransferase (ALT/SGPT) 260 U/L (12-78) H Alkaline Phosphatase 269 U/L (46-116) H Total Creatine Kinase 70 U/L (26-308) Troponin I 0.064 ng/mL (0.000-0.056) Pro-B-Type Natriuretic Peptide 6026 pg/mL (0-125) H Total Protein 5.3 G/DL (6.4-8.2) L Albumin 1.8 G/DL (3.4-5.0) L Globulin 3.5 g/dL Albumin/Globulin Ratio 0.5 (1.0-2.7) L Triglycerides Level 228 MG/DL (30-150) H Cholesterol Level 93 MG/DL (< 200) LDL Cholesterol 22 mg/dL (<100) HDL Cholesterol 12 MG/DL (40-60) L Cholesterol/HDL Ratio 7.8 (3.3-4.4) H Metamyelocytes % 1 % (0-0) H Nucleated Red Blood Cells 2 /100 WBC Polychromasia 1+ Lactic Acid Level 3.70 mmol/L (0.66-2.22) H 3.10 mmol/L (0.66-2.22) H Objective HEAD AND NECK: No JVD. She has a left IJ Sean catheter. LUNGS: Clear. CARDIOVASCULAR: Tachy S1 and S2 with no gallop or murmur. ABDOMEN: Soft. EXTREMITIES: No pitting edema. AV shunt in her bilateral upper extremities. Fabio San MD Oct 10, 2017 15:53
[2017-10-10] MEDS ORDERED: Hydromorphone 0.5mg/0.5ml inj IVP SCH (17:00)
[2017-10-10] MEDS: Dyna-Hex 2% Top Sol 2oz TOPIC SCH (20:00)
[2017-10-10] MEDS: DOPamine 400mg/250ml 250 ML IV SCH (20:31)
--- NOTE | 2017-10-10 21:30 | General Progress Note ---
Assessment/Plan Problem List: (1) Acute upper GI bleed ICD Codes: K92.2 - Gastrointestinal hemorrhage, unspecified SNOMED: 43303531 (2) Hypotension ICD Codes: I95.9 - Hypotension, unspecified SNOMED: 33504790 (3) Acute blood loss anemia ICD Codes: D62 - Acute posthemorrhagic anemia SNOMED: 561235760 (4) ESRD on HD (5) Hyperkalemia ICD Codes: E87.5 - Hyperkalemia SNOMED: 08746420 (6) Hyponatremia ICD Codes: E87.1 - Hypo-osmolality and hyponatremia SNOMED: 30165470 (7) Lactic acidosis ICD Codes: E87.2 - Acidosis SNOMED: 12977169 (8) Toxic metabolic encephalopathy ICD Codes: G92 - Toxic encephalopathy SNOMED: 651294393 Status: stable, not improved Assessment/Plan GI consulted s/p EGD on 10/09/17 which was limited 2/2 clot in stomach; per Dr. Montelongo, bleeding, possibly from a Patsy-Clarke tear s/p hemoclip, epinephrine injection , and gold probe cauterization s/p EGD on 10/10/17 with evacuation of clots and clip placement PPI gtt s/p octreotide gtt Trend CBC; transfuse for hgb<7.5 or active bleeding s/p pRBC transfusions NPO General surgery consulted given persistent abd pain CT a/p reviewed Serial abd exams Cardiology consulted Hold BP meds Pulmonology/critical care consulted Pressors if needed to maintain MAP>60 Monitor respiratory status closely given hematemesis Nephrology consulted Cont HD per renal--plan for HD today Podiatry consulted given recent foot fractures F/u R foot x-ray Wound care ID consulted given rising WBC Empiric vanco, cipro and flagyl per ID for intra-abdominal coverage Pain control, bowel regimen Supportive care DVT ppx: SCDs FULL CODE At the time of my involvement, the patient's condition was critical with high potential for and/or physiologic deterioration secondary to acute upper GI bleed, hypotension as delineated in the note above. On the above date of service, I spent a total of 44 minutes in the ICU evaluating, managing, and providing critical care services to this patient, including time spent documenting these activities, counseling patient/family, and coordinating care. Critical care services performed include: Telemetry Review Hemodynamic measurement interpretation Laboratory data review and interpretation Discussion of care plans with patient, family, and/or surrogate decision makers Discussion of patient's care with primary medical team, surgical team, and/or consulting service Decision to obtain further radiologic evaluation, after consideration of risk/ benefit ratio Decision to perform invasive procedure, after consideration of risk/benefit ratio Discussion of patient's code status and further advancement towards the ultimate goals of care D/w pt, family, RN, GI, renal, cardiology, pulmonology regarding mgmt and dispo. D/w GI re EGD results, diet, PPI gtt. D/w surgery re abd exam, CT results. D/w ID re abx. Time of note may not reflect time of encounter. Subjective Date patient seen: Oct 10, 2017 Time patient seen: 13:00 ROS Limited/Unobtainable: Yes Constitutional: Reports: malaise, weakness HEENT: Reports: no symptoms Cardiovascular: Reports: no symptoms Respiratory: Reports: no symptoms Gastrointestinal/Abdominal: Reports: abdominal pain, nausea, vomiting Genitourinary: Reports: no symptoms Neurologic/Psychiatric: Reports: no symptoms Endocrine: Reports: no symptoms Hematologic/Lymphatic: Reports: no symptoms Allergies: Coded Allergies: CODEINE (Unverified Allergy, Unknown, 10/16/14) IODINE (Unverified Allergy, Unknown, 10/16/14) MORPHINE (Unverified Allergy, Unknown, 10/16/14) PENICILLINS (Unverified Allergy, Unknown, 10/16/14) Subjective Pt with recurrent hematemesis o/n. Underwent repeat EGD today with evacuation of clots and clip placement Hgb improved to 11 this AM s/p multiple pRBC transfusions yesterday Did not received HD yesterday given low BPs K elevated to 6.0 this AM. Awaiting HD today Borderline BPs, given IVF bolus. Lactate 3.7 WBC improved to 12K Pt lethargic, c/o abd pain Objective Last 24 Hour Vital Signs Date Time Temp Pulse Resp B/P (MAP) Pulse Ox O2 Delivery O2 Flow Rate FiO2 10/10/17 21:12 97 Nasal Cannula 2.0 28 10/10/17 21:12 Non-Rebreather 15.0 100 10/10/17 20:33 82/48 10/10/17 20:31 76/51 10/10/17 19:00 Nasal Cannula 5.0 10/10/17 19:00 97.8 109 24 103/43 Nasal Cannula 5.0 97.8 109 10/10/17 18:00 97.4 109 20 92/66 98 Nasal Cannula 2.0 97.4 108 10/10/17 17:00 108 20 82/64 98 Nasal Cannula 2.0 107 10/10/17 16:49 98.8 10/10/17 16:19 98.8 10/10/17 16:00 Nasal Cannula 5.0 10/10/17 16:00 107 10/10/17 16:00 107 20 105/80 98 Nasal Cannula 2.0 107 10/10/17 16:00 97.4 120 24 90/50 Nasal Cannula 5.0 97.4 10/10/17 15:22 Nasal Cannula 2.0 28 10/10/17 15:22 Nasal Cannula 2.0 28 10/10/17 15:07 Nasal Cannula 2.0 28 10/10/17 15:07 Nasal Cannula 2.0 28 10/10/17 15:00 104 20 103/40 91 Nasal Cannula 2.0 99 10/10/17 14:00 106 20 140/54 96 Nasal Cannula 2.0 99 10/10/17 13:00 98.8 107 20 98/53 96 Nasal Cannula 2.0 98.8 99 10/10/17 12:03 207.7 86 22 98 10/10/17 12:01 207.1 92 28 95 10/10/17 12:00 101 20 102/67 96 Nasal Cannula 2.0 99 10/10/17 12:00 99 10/10/17 09:00 95 20 95/60 96 Nasal Cannula 2.0 95 10/10/17 08:15 Nasal Cannula 2.0 28 10/10/17 08:14 100 Nasal Cannula 2.0 28 10/10/17 08:00 98.7 92 20 114/89 96 Nasal Cannula 2.0 98.7 92 10/10/17 08:00 93 10/10/17 07:00 93 20 104/55 96 Nasal Cannula 2.0 90 10/10/17 06:00 90 17 103/65 96 Nasal Cannula 2.0 90 10/10/17 05:00 93 20 88/64 95 Nasal Cannula 2.0 93 10/10/17 04:00 98.0 86 20 88/64 95 Nasal Cannula 2.0 98.0 95 4/7/18 04:00 99 10/10/17 03:00 88 16 107/55 95 Nasal Cannula 2.0 95 10/10/17 02:00 99 20 145/75 95 Nasal Cannula 2.0 95 10/10/17 01:00 99 20 145/75 95 Nasal Cannula 2.0 95 10/10/17 00:00 100 10/10/17 00:00 97.8 94 20 122/75 95 Nasal Cannula 2.0 97.8 95 10/09/17 23:00 87 16 116/67 95 Room Air 95 10/09/17 22:00 86 16 96/33 95 Room Air 95 Intake and Output 10/09/17 10/10/17 19:00 07:00 Intake Total 846.66 ml 1000 ml Output Total 0 ml 300 ml Balance 846.66 ml 700 ml IV Total 846.66 ml 1000 ml Output Urine Total 0 ml 0 ml Emesis 0 ml 300 ml Hemodialysis UF 0 ml # Voids 3 # Bowel Movements 11 Laboratory Tests 10/10/17 04:40: White Blood Count 12.1H, Red Blood Count 3.50L, Hemoglobin 11.1#L, Hematocrit 30.5#L, Mean Corpuscular Volume 87, Mean Corpuscular Hemoglobin 31.7H, Mean Corpuscular Hemoglobin Concent 36.3H, Red Cell Distribution Width 15.0H, Platelet Count 193, Mean Platelet Volume 7.8, Neutrophils (%) (Auto) , Lymphocytes (%) (Auto) , Monocytes (%) (Auto) , Eosinophils (%) (Auto) , Basophils (%) (Auto) , Sodium Level 138, Potassium Level 6.1*H, Chloride Level 104, Carbon Dioxide Level 20L, Anion Gap 14, Blood Urea Nitrogen 108H, Creatinine 6.0H, Estimat Glomerular Filtration Rate 7.7, Glucose Level 136#H, Hemoglobin A1c 5.5, Uric Acid 5.8, Calcium Level 8.3L, Phosphorus Level 4.9, Magnesium Level 2.1, Total Bilirubin 1.3H, Direct Bilirubin 0.3, Gamma Glutamyl Transpeptidase 37, Aspartate Amino Transf (AST/SGOT) 199H, Alanine Aminotransferase (ALT/SGPT) 260H, Alkaline Phosphatase 269H, Total Creatine Kinase 70, Troponin I 0.064H, Pro-B-Type Natriuretic Peptide 6026H, Total Protein 5.3L, Albumin 1.8L, Globulin 3.5, Albumin/Globulin Ratio 0.5L, Triglycerides Level 228H, Cholesterol Level 93, LDL Cholesterol 22, HDL Cholesterol 12L, Cholesterol/HDL Ratio 7.8H 10/10/17 12:10: White Blood Count 5.2#, Red Blood Count 3.57L, Hemoglobin 10.7L, Hematocrit 31.5L, Mean Corpuscular Volume 88, Mean Corpuscular Hemoglobin 30.0, Mean Corpuscular Hemoglobin Concent 34.0, Red Cell Distribution Width 15.3H, Platelet Count 194, Mean Platelet Volume 7.6, Neutrophils (%) (Auto) , Lymphocytes (%) (Auto) , Monocytes (%) (Auto) , Eosinophils (%) (Auto) , Basophils (%) (Auto) , Sodium Level 140, Potassium Level 6.0*H, Chloride Level 105, Carbon Dioxide Level 19L, Anion Gap 17H, Blood Urea Nitrogen 118H, Creatinine 6.2H, Estimat Glomerular Filtration Rate 7.4, Glucose Level 154H, Calcium Level 8.1L, Differential Total Cells Counted 100, Neutrophils % (Manual ) 48, Lymphocytes % (Manual) 23, Monocytes % (Manual) 11H, Eosinophils % (Manual ) 0, Basophils % (Manual) 0, Metamyelocytes % 1H, Band Neutrophils 17H, Nucleated Red Blood Cells 2, Platelet Estimate Adequate, Platelet Morphology Normal, Polychromasia 1+, Hypochromasia 1+, Anisocytosis 1+, Lactic Acid Level 3.70H 10/10/17 13:45: Lactic Acid Level 3.10H 10/10/17 21:05: Arterial Blood pH 7.398, Arterial Blood Partial Pressure CO2 41.8, Arterial Blood Partial Pressure O2 47.1*L, Arterial Blood HCO3 25.2, Arterial Blood Oxygen Saturation 82.9L, Arterial Blood Base Excess 0.3, Tomas Test Positive Height (Feet): 5 Height (Inches): 4.00 Weight (Pounds): 159 Objective General: alert, cooperative, no distress, appears stated age, lethargic Head: normocephalic, without obvious abnormality, atraumatic Eyes: conjunctivae/corneas clear. PERRL, EOM's intact Throat: lips, mucosa, and tongue normal. MMM Neck: supple, symmetrical, trachea midline, and no JVD Lungs: clear to auscultation bilaterally Heart: regular rate and rhythm, S1, S2 normal, no murmur, click, rub or gallop Abdomen: soft, +TTP of abd diffusely w/o rebound/guarding, non-distended, bowel sounds normal Extremities: extremities normal, atraumatic, no cyanosis or edema Pulses: 2+ and symmetric Skin: skin color, texture, turgor normal; no rashes or lesions Neurologic: grossly normal, no focal deficits Channing Mejia M.D. Oct 10, 2017 21:30
[2017-10-10 23:05] LABS: BASOPHILS % (AUTO) 1.4 % (0.0-2.0); EOSINOPHILS % (AUTO) 0.1 % (0.0-3.0); HEMATOCRIT 29.1 % (37.0-47.0); MEAN CORPUSCULAR VOLUME 90 FL (80-99); MONOCYTES % (AUTO) 1.6 % (1.0-10.0); PLATELET COUNT 158 K/UL (150-450); RED BLOOD COUNT 3.24 M/UL (4.20-5.40); RED CELL DISTRIBUTION WIDTH 15.8 % (11.6-14.8); WHITE BLOOD COUNT 5.4 K/UL (4.8-10.8)
[2017-10-10 23:10] LABS: INR 1.7 (0.9-1.1)
[2017-10-10 23:13] LABS: ANION GAP 19 mmol/L (5-15); BLOOD UREA NITROGEN 56 mg/dL (7-18); CALCIUM 9.3 MG/DL (8.5-10.1); CARBON DIOXIDE 22 MMOL/L (21-32); CHLORIDE 105 MMOL/L (98-107); POTASSIUM 3.6 MMOL/L (3.5-5.1); SODIUM 146 MMOL/L (136-145)
[2017-10-10 23:28] LABS: ALANINE AMINOTRANSFERASE 191 U/L (12-78); ALBUMIN 1.3 G/DL (3.4-5.0); ALBUMIN/GLOBULIN RATIO 0.4 (1.0-2.7); ALKALINE PHOSPHATASE 209 U/L (46-116); ASPARTATE AMINO TRANSFERASE 140 U/L (15-37)
[2017-10-11] VITALS (60 sets, daily range): BP systolic 30–149; BP diastolic 12–91
--- NOTE | 2017-10-11 00:03 | General Progress Note ---
Progress Note Progress Note Surgery: Patient with hypoxia, increased oxygen requirement, worsening respiratory status , hypotension requiring initiation of pressors. Progressed to cardiac arrest requiring ACLS with resuscitation. Currently intubated on pressors. Bilious emesis and bilious NG tube output. labs with stable H/H and no signs of acute ongoing hemorrhage. Complaining of abdominal pain for past few days but stated it was improved this morning. on prior exam abdominal tenderness noted but no peritonitis and mildly improved this AM. As noted prior, significant vascular disease with calcifications of abdominal visceral arteries noted on CT. etiology of abdominal pain likely mesenteric ischemia. have considered possibility of intestinal ischemia from mesenteric disease and low flow state. have considered diagnostic laparoscopy to determine if decompensation from intestinal ischemia but patient unstable with multiple medical comorbidities and high risk for surgery. discussed findings in detail with family and potential options. discussed risks , benefits, and alternatives with patients family at bedside. will continue with resuscitation for now. prognosis guarded. Cornell Hong Oct 11, 2017 00:03
--- NOTE | 2017-10-11 00:37 | General Progress Note ---
Assessment/Plan Assessment/Plan 1. Anemia due to underlying gastrointestinal bleed. 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 --> S/P Blood transfusion. No adverse events. --> Anemia workup reviewed. Iron 93, TIBC 155, Ferritin >2000, B12 378, Folate 7.2, TSH 1.9 --> Hemoglobin goal is above 7. --> The patient has alloantibodies, and any further transfusion requires type and cross 2. Leukocytosis, likely secondary to stress reaction. --> Closely monitor. 3. Anemia due to underlying kidney disease. --> The patient's ferritin is above 2000, therefore, does not require any further iron at this time. --> Given GI bleed, continue Sandostatin and Protonix for 72 hours. 4. Coagulopathy, potentially secondary to DIC process. --> review hapto and ldh have been ordered 5. Hypotension due to hemorrhagic shock. --> Closely monitor and consider using pressors per Cardiology. 6. End-stage renal disease, on dialysis. 7. History of failed transplant. Subjective Date patient seen: Oct 10, 2017 Constitutional: Denies: no symptoms, chills, diaphoresis, fever, malaise, weakness, other HEENT: Denies: no symptoms, eye pain, blurred vision, tearing, double vision, ear pain, ear discharge, nose pain, nose congestion, throat pain, throat swelling, mouth pain, mouth swelling, other Cardiovascular: Denies: no symptoms, chest pain, edema, irregular heart rate, lightheadedness, palpitations, syncope, other Respiratory: Denies: no symptoms, cough, orthopnea, shortness of breath, SOB with excertion, SOB at rest, sputum, stridor, wheezing, other Gastrointestinal/Abdominal: Denies: no symptoms, abdomen distended, abdominal pain, black stools, tarry stools, blood in stool, constipated, diarrhea, difficulty swallowing, nausea, poor appetite, poor fluid intake, rectal bleeding , vomiting, other Genitourinary: Denies: no symptoms, burning, discharge, frequency, flank pain, hematuria, incontinence, pain, urgency, other Neurologic/Psychiatric: Denies: no symptoms, anxiety, depressed, emotional problems, headache, numbness, paresthesia, pre-existing deficit, seizure, tingling, tremors, weakness, other Hematologic/Lymphatic: Reports: anemia Allergies: Coded Allergies: CODEINE (Unverified Allergy, Unknown, 10/16/14) IODINE (Unverified Allergy, Unknown, 10/16/14) MORPHINE (Unverified Allergy, Unknown, 10/16/14) PENICILLINS (Unverified Allergy, Unknown, 10/16/14) Subjective Hypotensive and tachycardic. Poor prognosis. Objective Last 24 Hour Vital Signs Date Time Temp Pulse Resp B/P (MAP) Pulse Ox O2 Delivery O2 Flow Rate FiO2 10/10/17 23:49 99/68 10/10/17 22:45 122 31 99/68 97 Non-Rebreather 15.0 122 10/10/17 22:35 140 22 100 10/10/17 22:30 123 30 99/68 97 Non-Rebreather 15.0 123 10/10/17 22:15 129 29 102/63 97 Non-Rebreather 15.0 129 10/10/17 22:00 97.3 137 28 101/75 98 Non-Rebreather 15.0 97.3 137 10/10/17 21:45 97.4 141 31 129/84 82 Non-Rebreather 15.0 97.4 141 10/10/17 21:30 112 25 83/36 72 Nasal Cannula 5.0 112 10/10/17 21:12 97 Nasal Cannula 2.0 28 10/10/17 21:12 Non-Rebreather 15.0 100 10/10/17 21:00 118 28 83/36 82 Nasal Cannula 5.0 118 10/10/17 20:45 112 36 83/68 82 Nasal Cannula 5.0 112 10/10/17 20:33 82/48 10/10/17 20:31 76/51 10/10/17 20:30 108 33 56/32 81 Nasal Cannula 5.0 108 10/10/17 20:15 107 31 76/51 84 Nasal Cannula 5.0 107 10/10/17 20:00 97.9 108 35 44/28 88 Nasal Cannula 5.0 97.9 108 10/10/17 20:00 108 10/10/17 19:00 Nasal Cannula 5.0 10/10/17 19:00 97.8 109 24 103/43 Nasal Cannula 5.0 97.8 109 10/10/17 18:00 97.4 109 20 92/66 98 Nasal Cannula 2.0 97.4 108 10/10/17 17:00 108 20 82/64 98 Nasal Cannula 2.0 107 10/10/17 16:49 98.8 10/10/17 16:19 98.8 10/10/17 16:00 Nasal Cannula 5.0 10/10/17 16:00 107 10/10/17 16:00 107 20 105/80 98 Nasal Cannula 2.0 107 10/10/17 16:00 97.4 120 24 90/50 Nasal Cannula 5.0 97.4 10/10/17 15:22 Nasal Cannula 2.0 28 10/10/17 15:22 Nasal Cannula 2.0 28 10/10/17 15:07 Nasal Cannula 2.0 28 10/10/17 15:07 Nasal Cannula 2.0 28 10/10/17 15:00 104 20 103/40 91 Nasal Cannula 2.0 99 10/10/17 14:00 106 20 140/54 96 Nasal Cannula 2.0 99 10/10/17 13:00 98.8 107 20 98/53 96 Nasal Cannula 2.0 98.8 99 10/10/17 12:03 207.7 86 22 98 10/10/17 12:01 207.1 92 28 95 10/10/17 12:00 101 20 102/67 96 Nasal Cannula 2.0 99 10/10/17 12:00 99 10/10/17 09:00 95 20 95/60 96 Nasal Cannula 2.0 95 10/10/17 08:15 Nasal Cannula 2.0 28 10/10/17 08:14 100 Nasal Cannula 2.0 28 10/10/17 08:00 98.7 92 20 114/89 96 Nasal Cannula 2.0 98.7 92 10/10/17 08:00 93 10/10/17 07:00 93 20 104/55 96 Nasal Cannula 2.0 90 10/10/17 06:00 90 17 103/65 96 Nasal Cannula 2.0 90 10/10/17 05:00 93 20 88/64 95 Nasal Cannula 2.0 93 10/10/17 04:00 98.0 86 20 88/64 95 Nasal Cannula 2.0 98.0 95 10/10/17 04:00 99 10/10/17 03:00 88 16 107/55 95 Nasal Cannula 2.0 95 10/10/17 02:00 99 20 145/75 95 Nasal Cannula 2.0 95 10/10/17 01:00 99 20 145/75 95 Nasal Cannula 2.0 95 Intake and Output 10/10/17 10/11/17 19:00 07:00 Intake Total 1050 ml Output Total 220 ml 806 ml Balance 830 ml -806 ml IV Total 1050 ml Output Urine Total 0 ml 0 ml Emesis 220 ml 60 ml Hemodialysis UF 746 ml Laboratory Tests 10/10/17 04:40: White Blood Count 12.1H, Red Blood Count 3.50L, Hemoglobin 11.1#L, Hematocrit 30.5#L, Mean Corpuscular Volume 87, Mean Corpuscular Hemoglobin 31.7H, Mean Corpuscular Hemoglobin Concent 36.3H, Red Cell Distribution Width 15.0H, Platelet Count 193, Mean Platelet Volume 7.8, Neutrophils (%) (Auto) , Lymphocytes (%) (Auto) , Monocytes (%) (Auto) , Eosinophils (%) (Auto) , Basophils (%) (Auto) , Sodium Level 138, Potassium Level 6.1*H, Chloride Level 104, Carbon Dioxide Level 20L, Anion Gap 14, Blood Urea Nitrogen 108H, Creatinine 6.0H, Estimat Glomerular Filtration Rate 7.7, Glucose Level 136#H, Hemoglobin A1c 5.5, Uric Acid 5.8, Calcium Level 8.3L, Phosphorus Level 4.9, Magnesium Level 2.1, Total Bilirubin 1.3H, Direct Bilirubin 0.3, Gamma Glutamyl Transpeptidase 37, Aspartate Amino Transf (AST/SGOT) 199H, Alanine Aminotransferase (ALT/SGPT) 260H, Alkaline Phosphatase 269H, Total Creatine Kinase 70, Troponin I 0.064H, Pro-B-Type Natriuretic Peptide 6026H, Total Protein 5.3L, Albumin 1.8L, Globulin 3.5, Albumin/Globulin Ratio 0.5L, Triglycerides Level 228H, Cholesterol Level 93, LDL Cholesterol 22, HDL Cholesterol 12L, Cholesterol/HDL Ratio 7.8H 10/10/17 12:10: White Blood Count 5.2#, Red Blood Count 3.57L, Hemoglobin 10.7L, Hematocrit 31.5L, Mean Corpuscular Volume 88, Mean Corpuscular Hemoglobin 30.0, Mean Corpuscular Hemoglobin Concent 34.0, Red Cell Distribution Width 15.3H, Platelet Count 194, Mean Platelet Volume 7.6, Neutrophils (%) (Auto) , Lymphocytes (%) (Auto) , Monocytes (%) (Auto) , Eosinophils (%) (Auto) , Basophils (%) (Auto) , Sodium Level 140, Potassium Level 6.0*H, Chloride Level 105, Carbon Dioxide Level 19L, Anion Gap 17H, Blood Urea Nitrogen 118H, Creatinine 6.2H, Estimat Glomerular Filtration Rate 7.4, Glucose Level 154H, Calcium Level 8.1L, Differential Total Cells Counted 100, Neutrophils % (Manual ) 48, Lymphocytes % (Manual) 23, Monocytes % (Manual) 11H, Eosinophils % (Manual ) 0, Basophils % (Manual) 0, Metamyelocytes % 1H, Band Neutrophils 17H, Nucleated Red Blood Cells 2, Platelet Estimate Adequate, Platelet Morphology Normal, Polychromasia 1+, Hypochromasia 1+, Anisocytosis 1+, Lactic Acid Level 3.70H 10/10/17 13:45: Lactic Acid Level 3.10H 10/10/17 21:05: Arterial Blood pH 7.398, Arterial Blood Partial Pressure CO2 41.8, Arterial Blood Partial Pressure O2 47.1*L, Arterial Blood HCO3 25.2, Arterial Blood Oxygen Saturation 82.9L, Arterial Blood Base Excess 0.3, Tomas Test Positive 10/10/17 21:45: Sodium Level 146H, Potassium Level 3.6, Chloride Level 105, Carbon Dioxide Level 22, Anion Gap 19H, Blood Urea Nitrogen 56H, Creatinine 4.0H, Estimat Glomerular Filtration Rate 12.3, Glucose Level 244H, Calcium Level 9.3, Total Bilirubin 1.0, Aspartate Amino Transf (AST/SGOT) 140H, Alanine Aminotransferase (ALT/SGPT) 191H, Alkaline Phosphatase 209H, Total Protein 4.5L, Albumin 1.3L, Globulin 3.2, Albumin/Globulin Ratio 0.4L 10/10/17 22:15: White Blood Count 5.4, Red Blood Count 3.24L, Hemoglobin 10.0L, Hematocrit 29.1L , Mean Corpuscular Volume 90, Mean Corpuscular Hemoglobin 30.9, Mean Corpuscular Hemoglobin Concent 34.3, Red Cell Distribution Width 15.8H, Platelet Count 158, Mean Platelet Volume 8.7, Neutrophils (%) (Auto) 80.0H, Lymphocytes (%) (Auto) 17.0L, Monocytes (%) (Auto) 1.6, Eosinophils (%) (Auto) 0.1, Basophils (%) (Auto) 1.4, Prothrombin Time 17.6H, Prothromb Time International Ratio 1.7H, Activated Partial Thromboplast Time 41H, Lactic Acid Level 12.60H, Troponin I 0.074H 10/10/17 23:06: Arterial Blood pH 7.286L, Arterial Blood Partial Pressure CO2 35.2, Arterial Blood Partial Pressure O2 92.6, Arterial Blood HCO3 16.4L, Arterial Blood Oxygen Saturation 95.6, Arterial Blood Base Excess -9.4, Tomas Test Positive Height (Feet): 5 Height (Inches): 4.00 Weight (Pounds): 159 General Appearance: lethargic Cardiovascular: tachycardia Respiratory/Chest: decreased breath sounds Edema: mild edema Tushar Galdamez MD Oct 11, 2017 00:37
--- NOTE | 2017-10-11 00:54 | Emergency Room Report ---
History of Present Illness General Chief Complaint: Gastrointestinal Bleed Source: Patient, Family Member, Medical Record Present Illness Allergies: Coded Allergies: CODEINE (Unverified Allergy, Unknown, 10/16/14) IODINE (Unverified Allergy, Unknown, 10/16/14) MORPHINE (Unverified Allergy, Unknown, 10/16/14) PENICILLINS (Unverified Allergy, Unknown, 10/16/14) Patient History Now: No Nursing Documentation-[facility] Past Medical History: No History, Except For Hx Cardiac Problems: Yes Hx Hypertension: Yes Hx Cancer: No Hx Dialysis: Yes Hx Neurological Problems: No Physical Exam Vital Signs Date Time Temp Pulse Resp B/P (MAP) Pulse Ox O2 Delivery O2 Flow Rate FiO2 10/08/17 12:41 98.9 106 20 80/46 99 Room Air 99.0 10/08/17 13:17 2.0 10/08/17 19:30 28 Procedures CPR/Code Blue CPR/Code Blue Narrative I was called upstairs to CODE BLUE Upon arrival patient was in asystole No palpable pulses CPR in progress Patient required emergency intubation refer to the note for full specifics Medications including epinephrine, calcium chloride, sodium bicarbonate glucose were provided Patient did have return of palpable pulses and documented blood pressure Patient has had a very complicated course has had recent to upper endoscopies with clipping patient also had dialysis Patient observed further by myself in taste to have palpable pulses airway is intact and care handed to the admitting physician Intubation Intubation : Consent: Emergent Intubation Method: orotracheal Tube Size (cm): 7.5 Breath Sounds after Intubation: equal Intubation Complications: no complications Post Intubation Xray: Yes Progress/Xray Impression: see xray section Attempts: One Patient Tolerated: Well Complications: None Progress Patient was unresponsive did not require any medication Upon airway intubation patient has copious amounts of greenish liquid at the airway Medical Decision Making Diagnostic Impression: Primary Impression: Upper GI bleed Additional Impressions: Severe anemia ESRD (end stage renal disease) Chest X-Ray Diagnostic Results Chest X-Ray Diagnostic Results : Chest X-Ray Ordered: Yes # of Views/Limited/Complete: 1 View Indication: Other - Post intubation EP Interpretation: Yes Interpretation: no pneumothorax, other - Bilateral patchy infiltrates, ET tube appropriate, elevated right hemidiaphragm, no obvious acute bony abnormality Impression: Other - ET tube appropriate, bilateral patchy infiltrate Last Vital Signs Date Time Temp Pulse Resp B/P (MAP) Pulse Ox O2 Delivery O2 Flow Rate FiO2 10/10/17 23:49 99/68 10/10/17 22:45 122 31 97 Non-Rebreather 15.0 122 10/10/17 22:35 100 10/10/17 22:00 97.3 97.3 Status: improved Disposition: ADMITTED INPATIENT Condition: Critical Referrals: MACHELLE CALDERON (PCP) Fransisco Carson DO Oct 11, 2017 00:54
--- NOTE | 2017-10-11 01:00 | Consultation ---
DATE OF CONSULTATION: 10/10/2017 INFECTIOUS DISEASES CONSULTATION CONSULTING PHYSICIAN: Sushma Charles M.D. ATTENDING PHYSICIAN: Myke Olmos M.D. REFERRING PHYSICIAN: Dr. Snell. REASON FOR CONSULTATION: Possible sepsis, elevated white count, possible infected right foot blister. CHIEF COMPLAINT: The patient's chief complaint coming into the hospital is GI bleed. HISTORY OF PRESENT ILLNESS: This is a very pleasant 42-year-old female who comes into [facility] with emesis. The patient also has a history of right foot fracture and has a blister. The patient was seen by Podiatry. The patient was also seen by GI for endoscopy for the GI bleed and also by Surgery because of persistent abdominal pain. Infectious Diseases consultation requested for antibiotic management. The patient was placed empirically on vancomycin, Cipro, and Flagyl. Blood cultures are pending. Case was discussed with Dr. Snell. MAR was noted. Orders were noted. Notes were reviewed. Of note, the patient's white count has been as high as 19.0; however, the patient did receive steroids including methylprednisolone once on October 08, 2017. REVIEW OF SYSTEMS: CONSTITUTIONAL: The patient is status post EGD. She is currently not on pressors. She does not have a Vargas. She is a hemodialysis patient. She has a PermCath for hemodialysis. 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 She does have a new central line. She has generalized weakness and fatigue. She did come in with upper GI bleed. Currently no GI bleed. No hemoptysis. HEAD AND NECK: No head pain or neck pain. CARDIAC: No chest pain. GASTROINTESTINAL: No nausea, vomiting, or diarrhea at this time. She did have abdominal pain earlier in the admission including nausea and vomiting. PULMONARY: No congestion, shortness of breath, or hemoptysis. SKIN: No rash or itching. EXTREMITIES: She does have right leg and foot pain. NEUROLOGIC: No seizures. No fever, chills, night sweats. She has generalized weakness. No thrush or dysphagia. PAST MEDICAL HISTORY: The patient's past medical history includes the history of following. The patient has a past medical history of hypertension, end-stage renal disease on hemodialysis, history of right foot fracture, hematemesis, anemia. She also has a history of right foot fracture. PAST SURGICAL HISTORY: None. MEDICATIONS: Upon reviewing the MAR, she is on the following medications. She is on midazolam, diphenhydramine, erythromycin. She is on Zofran, chlorhexidine, hydromorphone, Flagyl, Cipro, vancomycin. She is on lorazepam, hydromorphone, heparin, lidocaine, insulin, dopamine. She is on antibiotics vancomycin, Cipro, Flagyl. Temazepam, Zofran, lorazepam, she was given erythromycin also. IV fluids, acetaminophen. Outside medications noted and reconciliated. ALLERGIES: Include codeine, iodine, morphine, penicillin. SOCIAL HISTORY: Negative for smoking, alcohol, or drug abuse. FAMILY HISTORY: Noncontributory. PHYSICAL EXAMINATION: VITAL SIGNS: Temperature 98.8, pulse rate 106, respiratory rate 20, blood pressure noted , saturation 96%. GENERAL: Alert and responsive, no acute distress. HEAD AND NECK: Oral exam, no thrush. Eye exam, no icterus. Normocephalic. No facial droop. No neck stiffness. Neck is supple. No JVD. HEART: Regular. No gallop or murmur. ABDOMEN: Soft. Positive bowel sounds. No rebound. Some discomfort. LUNGS: Clear bilaterally. No rhonchi or rales. SKIN: No rash. MUSCULOSKELETAL: No effusion. Legs are without cellulitis. PERIPHERAL VASCULAR: No cyanosis or gangrene. NEUROLOGIC: Generalized weakness and responsive. Nonfocal. LINE SITES: The patient has hemodialysis lines and central line. GENITOURINARY: No Vargas. LABORATORY AND DIAGNOSTIC DATA: Laboratory data is as follows, white count yesterday was high as 15.4 and 12.1, actually as high as 19.0, today white count is 5.2, hemoglobin 7.7, platelet count 194. Creatinine 6.2. Blood cultures have been ordered. IMAGING STUDIES: X-ray of the right foot shows fracture. CT scan of the abdomen and pelvis showed large hiatal hernia, cholelithiasis, no mention of abscess. ASSESSMENT AND PLAN: 1. The patient has elevated white count, possible sepsis, however I believe that most likely this is due the GI bleed, the patient also did get steroids on October 08, 2017 which also contributed to leukocytosis. Leukocytosis seems to be improved. Other possibilities include line infection. Other possibilities of right foot blister could be, it is unclear if this is infected such as abscess or cellulitis. Podiatry is following at this time. Continue vancomycin, cefepime, and Flagyl. Check blood cultures. Check followup labs. Continue vancomycin, Cipro, and Flagyl for possible sepsis. Pending workup. Continue per GI, Surgery, and Podiatry. 2. End-stage renal disease, on hemodialysis. 3. Anemia. 4. GI bleed. 5. Right foot fracture. 6. Right foot blister. 7. Hypertension, treatment per Dr. Snell. 8. Continue treatment per Dr. Snell and consultants. 9. Past Medical History noted. 10. Allergy to codeine, iodine, morphine, penicillin. 11. Social history is negative. 12. Family history is noncontributory. 13. MAR was noted. 14. Case discussed with RN. 15. ICU care. 16. The patient status post EGD for GI bleed. Continue per GI. 17. Continue treatment per primary consultants. 18. Notes and records were noted. 19. Orders were entered. Sushma Charles M.D. DR: Juve JOB#: [id number] CC: BARTOLOME
--- NOTE | 2017-10-11 01:00 | Progress Note ---
DATE: 10/10/2017 SUBJECTIVE: The patient states she still has pain noted to the right foot. She states the pain medication is helping. She states she is able to wiggle her toes little bit better today. She states overnight she had had severe pain, however, she is mentioning pain is mostly in her abdominal area. Family is at the bedside. OBJECTIVE: GENERAL: AAO x3, in mild acute distress. EXTREMITIES: Neuromuscular status unchanged on the right foot. Still with ecchymosis to the plantar sole and dorsal foot as well as the medial heel. Still has pain in the second and third metatarsal area as well as second and fourth metatarsal shaft region. A 2+ nonpitting edema noticed to the right foot. It is slightly improved from yesterday due to the Partha bandage. The fractured hematoma wound remains stable. ASSESSMENT: 1. Second metatarsal base fracture, right foot. 2. Possible third metatarsal fracture, right foot. 3. Pain in the right foot. 4. Bone contusion. 5. Hematoma of the right foot secondary to contusion of the bone. PLAN: X-ray results were discussed with the family and I discussed that the dressings were over the foot at that time and therefore the radiographic findings are poorly seen, therefore, repeated three views of the right foot without placing the dressings on the right foot. Discussed with them, I believe the patient may require surgical intervention, however, I must be sure and therefore she requires another radiograph. Discussed continuing with the Adaptic dry sterile dressing and cast padding to posterior splint with Partha bandages. We will continue to follow with the patient. Continue elevation of the right lower extremity. Angel Abdul M.D. DR: Antonino JOB#: [id number] CC:
[2017-10-11] MEDS: LORazepam Inj 2mg/ml 1ml IV PRN (01:12)
[2017-10-11] MEDS ORDERED: D5NS 1,000 ML IV SCH ×2 (05:00→17:00)
[2017-10-11 05:23] LABS: HEMATOCRIT 28.8 % (37.0-47.0); HEMOGLOBIN 9.8 G/DL (12.0-16.0); MEAN CORPUSCULAR VOLUME 90 FL (80-99); PLATELET COUNT 99 K/UL (150-450); WHITE BLOOD COUNT 3.4 K/UL (4.8-10.8)
[2017-10-11 05:37] LABS: INR 1.6 (0.9-1.1)
[2017-10-11 05:47] LABS: PHOSPHORUS 4.3 MG/DL (2.5-4.9)
[2017-10-11] MEDS: Pantoprazole 80 MG in NS 250 ML IV SCH (05:47)
[2017-10-11 05:54] LABS: ALANINE AMINOTRANSFERASE 196 U/L (12-78); ALBUMIN 1.3 G/DL (3.4-5.0); ALBUMIN/GLOBULIN RATIO 0.4 (1.0-2.7); ALKALINE PHOSPHATASE 196 U/L (46-116); ANION GAP 17 mmol/L (5-15); ASPARTATE AMINO TRANSFERASE 188 U/L (15-37); BILIRUBIN,TOTAL 1.1 MG/DL (0.2-1.0); BLOOD UREA NITROGEN 56 mg/dL (7-18); CALCIUM 8.1 MG/DL (8.5-10.1); CARBON DIOXIDE 22 MMOL/L (21-32); CHLORIDE 105 MMOL/L (98-107); CREATININE 3.9 MG/DL (0.55-1.30); POTASSIUM 3.9 MMOL/L (3.5-5.1); SODIUM 144 MMOL/L (136-145)
[2017-10-11 06:00] LABS: BILIRUBIN,DIRECT 0.5 MG/DL (0.0-0.3)
[2017-10-11] MEDS ORDERED: Vasopressin 100 UNITS in NS 95 ML IV SCH (06:00)
[2017-10-11] MEDS ORDERED: LORazepam Inj 2mg/ml 1ml IV PRN (06:00)
[2017-10-11] MEDS ORDERED: Hydrocortisone 100mg Inj IV SCH (07:15)
[2017-10-11] MEDS ORDERED: Sodium Chloride 500ML 500 ML IV ONE (07:30)
[2017-10-11] MEDS ORDERED: Vancomycin 1gm/D5W 275ml IVPB ONE ×2 (08:00)
[2017-10-11] MEDS: Acetaminophen 650 MG SUPP RECTAL PRN (08:16)
--- NOTE | 2017-10-11 08:55 | General Progress Note ---
Assessment/Plan Assessment/Plan Assessment - septic shock - lactic acidosis - s/p code blue - presumed abdominal sepsis - mesenteric vascular disease) - UGIB, likely due to MWT / ulcer at GEJ/hernia sack/pyloric channel - treated and resolved - large Hiatal hernia - ESRD - Very poor prognosis - family aware Recommendations - continue PPI - continue Abx - pressors - fluids - serial exams - surgical f/u - vent support Subjective Allergies: Coded Allergies: CODEINE (Unverified Allergy, Unknown, 10/16/14) IODINE (Unverified Allergy, Unknown, 10/16/14) MORPHINE (Unverified Allergy, Unknown, 10/16/14) PENICILLINS (Unverified Allergy, Unknown, 10/16/14) Subjective Above noted d/w family in ICU d/w RN and Surgery last night and today patient rapidly deteriorated since yesterday evening s/p code blue arrest progressive hypotension/shock now hypotensive and tachy on double max pressors intubated and unresponsive OGT --> bilious fluid Objective Last 24 Hour Vital Signs Date Time Temp Pulse Resp B/P (MAP) Pulse Ox O2 Delivery O2 Flow Rate FiO2 10/11/17 08:16 101.6 10/11/17 07:30 101.6 111 39 69/28 87 Mechanical Ventilator 100 101.6 111 10/11/17 07:01 113 40 100 10/11/17 07:00 86/22 10/11/17 07:00 114 38 88/22 87 Mechanical Ventilator 100 114 10/11/17 06:30 110 34 88/16 85 Mechanical Ventilator 100 110 10/11/17 06:14 85/41 10/11/17 06:00 113 39 85/41 87 Mechanical Ventilator 100 113 10/11/17 05:30 113 36 81/22 90 Mechanical Ventilator 100 113 10/11/17 05:13 113 34 100 10/11/17 05:00 113 34 77/26 90 Mechanical Ventilator 100 113 10/11/17 04:30 112 33 69/22 90 Mechanical Ventilator 100 112 10/11/17 04:15 100 10/11/17 04:00 111 34 88/21 98 Mechanical Ventilator 100 111 10/11/17 04:00 115 10/11/17 03:42 90/66 10/11/17 03:30 117 34 87/38 93 Mechanical Ventilator 100 117 10/11/17 03:27 118 34 100 10/11/17 03:00 120 33 105/45 94 Mechanical Ventilator 100 120 10/11/17 02:00 126 36 121/66 92 Mechanical Ventilator 100 126 10/11/17 01:07 128 32 100 10/11/17 01:00 122 27 117/91 95 Mechanical Ventilator 100 122 10/11/17 00:30 108 25 90/66 99 Mechanical Ventilator 100 108 10/11/17 00:30 108 25 90/66 99 Mechanical Ventilator 100 108 10/11/17 00:00 121 10/11/17 00:00 100 24 93/56 99 Mechanical Ventilator 100 100 10/10/17 23:49 99/68 10/10/17 22:45 122 31 99/68 97 Non-Rebreather 15.0 122 10/10/17 22:35 140 22 100 10/10/17 22:30 123 30 99/68 97 Non-Rebreather 15.0 123 10/10/17 22:15 129 29 102/63 97 Non-Rebreather 15.0 129 10/10/17 22:00 97.3 137 28 101/75 98 Non-Rebreather 15.0 97.3 137 10/10/17 21:45 97.4 141 31 129/84 82 Non-Rebreather 15.0 97.4 141 10/10/17 21:30 112 25 83/36 72 Nasal Cannula 5.0 112 10/10/17 21:12 97 Nasal Cannula 2.0 28 10/10/17 21:12 Non-Rebreather 15.0 100 10/10/17 21:00 118 28 83/36 82 Nasal Cannula 5.0 118 10/10/17 20:45 112 36 83/68 82 Nasal Cannula 5.0 112 10/10/17 20:33 82/48 10/10/17 20:31 76/51 10/10/17 20:30 108 33 56/32 81 Nasal Cannula 5.0 108 10/10/17 20:15 107 31 76/51 84 Nasal Cannula 5.0 107 10/10/17 20:00 97.9 108 35 44/28 88 Nasal Cannula 5.0 97.9 108 10/10/17 20:00 108 10/10/17 19:00 Nasal Cannula 5.0 10/10/17 19:00 97.8 109 24 103/43 Nasal Cannula 5.0 97.8 109 10/10/17 18:00 97.4 109 20 92/66 98 Nasal Cannula 2.0 97.4 108 10/10/17 17:00 108 20 82/64 98 Nasal Cannula 2.0 107 10/10/17 16:49 98.8 10/10/17 16:19 98.8 10/10/17 16:00 Nasal Cannula 5.0 10/10/17 16:00 107 10/10/17 16:00 107 20 105/80 98 Nasal Cannula 2.0 107 10/10/17 16:00 97.4 120 24 90/50 Nasal Cannula 5.0 97.4 10/10/17 15:22 Nasal Cannula 2.0 28 10/10/17 15:22 Nasal Cannula 2.0 28 10/10/17 15:07 Nasal Cannula 2.0 28 10/10/17 15:07 Nasal Cannula 2.0 28 10/10/17 15:00 104 20 103/40 91 Nasal Cannula 2.0 99 10/10/17 14:00 106 20 140/54 96 Nasal Cannula 2.0 99 10/10/17 13:00 98.8 107 20 98/53 96 Nasal Cannula 2.0 98.8 99 10/10/17 12:03 207.7 86 22 98 10/10/17 12:01 207.1 92 28 95 10/10/17 12:00 101 20 102/67 96 Nasal Cannula 2.0 99 10/10/17 12:00 99 10/10/17 09:00 95 20 95/60 96 Nasal Cannula 2.0 95 Intake and Output 10/10/17 10/11/17 19:00 07:00 Intake Total 1050 ml 1762.5 ml Output Total 220 ml 1106 ml Balance 830 ml 656.5 ml IV Total 1050 ml 1762.5 ml Output Urine Total 0 ml 0 ml Emesis 220 ml 360 ml Hemodialysis UF 746 ml Laboratory Tests 10/10/17 12:10: White Blood Count 5.2#, Red Blood Count 3.57L, Hemoglobin 10.7L, Hematocrit 31.5L, Mean Corpuscular Volume 88, Mean Corpuscular Hemoglobin 30.0, Mean Corpuscular Hemoglobin Concent 34.0, Red Cell Distribution Width 15.3H, Platelet Count 194, Mean Platelet Volume 7.6, Neutrophils (%) (Auto) , Lymphocytes (%) (Auto) , Monocytes (%) (Auto) , Eosinophils (%) (Auto) , Basophils (%) (Auto) , Differential Total Cells Counted 100, Neutrophils % ( Manual) 48, Lymphocytes % (Manual) 23, Monocytes % (Manual) 11H, Eosinophils % ( Manual) 0, Basophils % (Manual) 0, Metamyelocytes % 1H, Band Neutrophils 17H, Nucleated Red Blood Cells 2, Platelet Estimate Adequate, Platelet Morphology Normal, Polychromasia 1+, Hypochromasia 1+, Anisocytosis 1+, Sodium Level 140, Potassium Level 6.0*H, Chloride Level 105, Carbon Dioxide Level 19L, Anion Gap 17H, Blood Urea Nitrogen 118H, Creatinine 6.2H, Estimat Glomerular Filtration Rate 7.4, Glucose Level 154H, Lactic Acid Level 3.70H, Calcium Level 8.1L 10/10/17 13:45: Lactic Acid Level 3.10H 10/10/17 21:05: Arterial Blood pH 7.398, Arterial Blood Partial Pressure CO2 41.8, Arterial Blood Partial Pressure O2 47.1*L, Arterial Blood HCO3 25.2, Arterial Blood Oxygen Saturation 82.9L, Arterial Blood Base Excess 0.3, Tomas Test Positive 10/10/17 21:45: Sodium Level 146H, Potassium Level 3.6, Chloride Level 105, Carbon Dioxide Level 22, Anion Gap 19H, Blood Urea Nitrogen 56H, Creatinine 4.0H, Estimat Glomerular Filtration Rate 12.3, Glucose Level 244H, Calcium Level 9.3, Total Bilirubin 1.0, Aspartate Amino Transf (AST/SGOT) 140H, Alanine Aminotransferase (ALT/SGPT) 191H, Alkaline Phosphatase 209H, Total Protein 4.5L, Albumin 1.3L, Globulin 3.2, Albumin/Globulin Ratio 0.4L 10/10/17 22:15: White Blood Count 5.4, Red Blood Count 3.24L, Hemoglobin 10.0L, Hematocrit 29.1L , Mean Corpuscular Volume 90, Mean Corpuscular Hemoglobin 30.9, Mean Corpuscular Hemoglobin Concent 34.3, Red Cell Distribution Width 15.8H, Platelet Count 158, Mean Platelet Volume 8.7, Neutrophils (%) (Auto) 80.0H, Lymphocytes (%) (Auto) 17.0L, Monocytes (%) (Auto) 1.6, Eosinophils (%) (Auto) 0.1, Basophils (%) (Auto) 1.4, Prothrombin Time 17.6H, Prothromb Time International Ratio 1.7H, Activated Partial Thromboplast Time 41H, Lactic Acid Level 12.60H, Troponin I 0.074H 10/10/17 23:06: Arterial Blood pH 7.286L, Arterial Blood Partial Pressure CO2 35.2, Arterial Blood Partial Pressure O2 92.6, Arterial Blood HCO3 16.4L, Arterial Blood Oxygen Saturation 95.6, Arterial Blood Base Excess -9.4, Tomas Test Positive 10/11/17 01:00: Arterial Blood pH 7.377, Arterial Blood Partial Pressure CO2 32.0L, Arterial Blood Partial Pressure O2 86.1, Arterial Blood HCO3 18.4L, Arterial Blood Oxygen Saturation 95.4, Arterial Blood Base Excess -5.9, Tomas Test Positive 10/11/17 04:00: White Blood Count 3.4L, Red Blood Count 3.20L, Hemoglobin 9.8L, Hematocrit 28.8L , Mean Corpuscular Volume 90, Mean Corpuscular Hemoglobin 30.5, Mean Corpuscular Hemoglobin Concent 33.8, Red Cell Distribution Width 16.0H, Platelet Count 99L, Mean Platelet Volume 8.9, Neutrophils (%) (Auto) , Lymphocytes (%) (Auto) , Monocytes (%) (Auto) , Eosinophils (%) (Auto) , Basophils (%) (Auto) , Prothrombin Time 17.0H, Prothromb Time International Ratio 1.6H, Activated Partial Thromboplast Time 45H, Lactic Acid Level 10.80H, Troponin I 0.192H, Differential Total Cells Counted 100, Neutrophils % (Manual) 56, Lymphocytes % (Manual) 10L, Monocytes % (Manual) 5, Eosinophils % (Manual) 0 , Basophils % (Manual) 0, Metamyelocytes % 1H, Band Neutrophils 28H, Nucleated Red Blood Cells 3, Platelet Estimate DecreasedL, Platelet Morphology Normal, Polychromasia 2+, Hypochromasia 1+, Anisocytosis 1+, Haptoglobin [Pending], PTT Mixing Study [Pending], APTT Patient/Control Mix [Pending], Mix PTT Incubation Time [Pending], Mix PTT Normal/Saline 1:1 Immediate [Pending], Thrombin Time Normal Plasma [Pending], Sodium Level 144, Potassium Level 3.9, Chloride Level 105, Carbon Dioxide Level 22, Anion Gap 17H, Blood Urea Nitrogen 56H, Creatinine 3.9H, Estimat Glomerular Filtration Rate 12.7, Glucose Level 61#L, Calcium Level 8.1L, Phosphorus Level 4.3, Magnesium Level 2.0, Total Bilirubin 1.1H, Direct Bilirubin 0.5H, Aspartate Amino Transf (AST/SGOT) 188H, Alanine Aminotransferase (ALT/SGPT) 196H, Alkaline Phosphatase 196H, Lactate Dehydrogenase 411H, Total Protein 4.4L, Albumin 1.3L, Globulin 3.1, Albumin/ Globulin Ratio 0.4L, Random Vancomycin Level 11.9 10/11/17 06:10: Arterial Blood pH 7.389, Arterial Blood Partial Pressure CO2 24.2*L, Arterial Blood Partial Pressure O2 44.9*L, Arterial Blood HCO3 14.3L, Arterial Blood Oxygen Saturation 78.8L, Arterial Blood Base Excess -9.3, Tomas Test Positive Height (Feet): 5 Height (Inches): 4.00 Weight (Pounds): 166 Objective WDWN Woman NCAT, (+) ETT, (+) OGT Coarse BS RR , tachy abd soft no edema Neuro: Obtunded and unresponsive ARTEMIO MADDOX Oct 11, 2017 08:55
--- NOTE | 2017-10-11 08:57 | Pulmonolgy Critical Care Note ---
Critical Care - Asmt/Plan Problems: (1) Hemorrhagic shock (2) Upper GI bleed (3) Severe anemia (4) ESRD (end stage renal disease) Respiratory: monitor respiratory rate, adjust FIO2, CXR Cardiac: continue to monitor HR/BP Renal: F/U I&O, keep IV fluid, increase IV fluid, check electrolytes Infectious Disease: check cultures Gastrointestinal: continue feedings/current rate Endocrine: monitor blood sugar, check HgA1C, continue sliding scale insulin Hematologic: monitor H/H, transfuse if hgb<8.5 Neurologic: PRN Morphine, keep patient comfortable Affect: PRN ativan Prophylaxis: Heparin Notes Reviewed: oiler and greaser, renal Discussed with: nurses, consultants, case management specialistarmy manager - Objective Last 24 Hour Vital Signs Date Time Temp Pulse Resp B/P (MAP) Pulse Ox O2 Delivery O2 Flow Rate FiO2 10/11/17 08:30 113 38 99/68 83 Mechanical Ventilator 100 10/11/17 08:16 101.6 10/11/17 08:15 109 37 85/20 82 Mechanical Ventilator 100 10/11/17 08:09 111 38 88/29 82 Mechanical Ventilator 100 10/11/17 08:02 111 38 87/26 83 Mechanical Ventilator 100 10/11/17 08:00 111 38 69/28 83 Mechanical Ventilator 100 10/11/17 07:30 101.6 111 39 69/28 87 Mechanical Ventilator 100 101.6 111 10/11/17 07:01 113 40 100 10/11/17 07:00 86/22 10/11/17 07:00 114 38 88/22 87 Mechanical Ventilator 100 114 10/11/17 06:30 110 34 88/16 85 Mechanical Ventilator 100 110 10/11/17 06:14 85/41 10/11/17 06:00 113 39 85/41 87 Mechanical Ventilator 100 113 10/11/17 05:30 113 36 81/22 90 Mechanical Ventilator 100 113 10/11/17 05:13 113 34 100 10/11/17 05:00 113 34 77/26 90 Mechanical Ventilator 100 113 10/11/17 04:30 112 33 69/22 90 Mechanical Ventilator 100 112 10/11/17 04:15 100 10/11/17 04:00 111 34 88/21 98 Mechanical Ventilator 100 111 10/11/17 04:00 115 10/11/17 03:42 90/66 10/11/17 03:30 117 34 87/38 93 Mechanical Ventilator 100 117 10/11/17 03:27 118 34 100 10/11/17 03:00 120 33 105/45 94 Mechanical Ventilator 100 120 10/11/17 02:00 126 36 121/66 92 Mechanical Ventilator 100 126 10/11/17 01:07 128 32 100 10/11/17 01:00 122 27 117/91 95 Mechanical Ventilator 100 122 10/11/17 00:30 108 25 90/66 99 Mechanical Ventilator 100 108 10/11/17 00:30 108 25 90/66 99 Mechanical Ventilator 100 108 10/11/17 00:00 121 10/11/17 00:00 100 24 93/56 99 Mechanical Ventilator 100 100 10/10/17 23:49 99/68 10/10/17 22:45 122 31 99/68 97 Non-Rebreather 15.0 122 10/10/17 22:35 140 22 100 10/10/17 22:30 123 30 99/68 97 Non-Rebreather 15.0 123 10/10/17 22:15 129 29 102/63 97 Non-Rebreather 15.0 129 10/10/17 22:00 97.3 137 28 101/75 98 Non-Rebreather 15.0 97.3 137 10/10/17 21:45 97.4 141 31 129/84 82 Non-Rebreather 15.0 97.4 141 10/10/17 21:30 112 25 83/36 72 Nasal Cannula 5.0 112 10/10/17 21:12 97 Nasal Cannula 2.0 28 10/10/17 21:12 Non-Rebreather 15.0 100 10/10/17 21:00 118 28 83/36 82 Nasal Cannula 5.0 118 10/10/17 20:45 112 36 83/68 82 Nasal Cannula 5.0 112 10/10/17 20:33 82/48 10/10/17 20:31 76/51 10/10/17 20:30 108 33 56/32 81 Nasal Cannula 5.0 108 10/10/17 20:15 107 31 76/51 84 Nasal Cannula 5.0 107 10/10/17 20:00 97.9 108 35 44/28 88 Nasal Cannula 5.0 97.9 108 10/10/17 20:00 108 10/10/17 19:00 Nasal Cannula 5.0 10/10/17 19:00 97.8 109 24 103/43 Nasal Cannula 5.0 97.8 109 10/10/17 18:00 97.4 109 20 92/66 98 Nasal Cannula 2.0 97.4 108 10/10/17 17:00 108 20 82/64 98 Nasal Cannula 2.0 107 10/10/17 16:49 98.8 10/10/17 16:19 98.8 10/10/17 16:00 Nasal Cannula 5.0 10/10/17 16:00 107 10/10/17 16:00 107 20 105/80 98 Nasal Cannula 2.0 107 10/10/17 16:00 97.4 120 24 90/50 Nasal Cannula 5.0 97.4 10/10/17 15:22 Nasal Cannula 2.0 28 10/10/17 15:22 Nasal Cannula 2.0 28 10/10/17 15:07 Nasal Cannula 2.0 28 10/10/17 15:07 Nasal Cannula 2.0 28 10/10/17 15:00 104 20 103/40 91 Nasal Cannula 2.0 99 10/10/17 14:00 106 20 140/54 96 Nasal Cannula 2.0 99 10/10/17 13:00 98.8 107 20 98/53 96 Nasal Cannula 2.0 98.8 99 10/10/17 12:03 207.7 86 22 98 10/10/17 12:01 207.1 92 28 95 10/10/17 12:00 101 20 102/67 96 Nasal Cannula 2.0 99 10/10/17 12:00 99 10/10/17 09:00 95 20 95/60 96 Nasal Cannula 2.0 95 Status: awake Condition: critical HEENT: atraumatic Lungs: clear Heart: HR/BP stable Abdomen: soft, non-tender, feeding tube Extremities: no C/C/E Decubiti: location Accucheck: 60 Critical Care - Subjective ROS Limited/Unobtainable: No ICU Day: 3 Interval Events: pt arrested last night and was intubated, pupils are not reactive. no response to painful stimuli. FI02: 100 Vent Support Breath Rate: 16 Vent Support Mode: AC Vent Tidal Volume: 600 Sputum Amount: Scant PEEP: 7.0 PIP: 42 I&O: Intake and Output 10/10/17 10/11/17 19:00 07:00 Intake Total 1050 ml 1762.5 ml Output Total 220 ml 1106 ml Balance 830 ml 656.5 ml IV Total 1050 ml 1762.5 ml Output Urine Total 0 ml 0 ml Emesis 220 ml 360 ml Hemodialysis UF 746 ml CXR: Laboratory Tests Test 10/10/17 12:10 10/10/17 13:45 10/10/17 21:05 10/10/17 21:45 White Blood Count 5.2 K/UL (4.8-10.8) # Red Blood Count 3.57 M/UL (4.20-5.40) L Hemoglobin 10.7 G/DL (12.0-16.0) L Hematocrit 31.5 % (37.0-47.0) L Mean Corpuscular Volume 88 FL (80-99) Mean Corpuscular Hemoglobin 30.0 PG (27.0-31.0) Mean Corpuscular Hemoglobin Concent 34.0 G/DL (32.0-36.0) Red Cell Distribution Width 15.3 % (11.6-14.8) H Platelet Count 194 K/UL (150-450) Mean Platelet Volume 7.6 FL (6.5-10.1) Neutrophils (%) (Auto) % (45.0-75.0) Lymphocytes (%) (Auto) % (20.0-45.0) Monocytes (%) (Auto) % (1.0-10.0) Eosinophils (%) (Auto) % (0.0-3.0) Basophils (%) (Auto) % (0.0-2.0) Differential Total Cells Counted 100 Neutrophils % (Manual) 48 % (45-75) Lymphocytes % (Manual) 23 % (20-45) Monocytes % (Manual) 11 % (1-10) H Eosinophils % (Manual) 0 % (0-3) Basophils % (Manual) 0 % (0-2) Metamyelocytes % 1 % (0-0) H Band Neutrophils 17 % (0-8) H Nucleated Red Blood Cells 2 /100 WBC Platelet Estimate Adequate Platelet Morphology Normal Polychromasia 1+ Hypochromasia 1+ Anisocytosis 1+ Sodium Level 140 MMOL/L (136-145) 146 MMOL/L (136-145) H Potassium Level 6.0 MMOL/L (3.5-5.1) *H 3.6 MMOL/L (3.5-5.1) Chloride Level 105 MMOL/L (98-107) 105 MMOL/L (98-107) Carbon Dioxide Level 19 MMOL/L (21-32) L 22 MMOL/L (21-32) Anion Gap 17 mmol/L (5-15) H 19 mmol/L (5-15) H Blood Urea Nitrogen 118 mg/dL (7-18) H 56 mg/dL (7-18) H Creatinine 6.2 MG/DL (0.55-1.30) H 4.0 MG/DL (0.55-1.30) H Estimat Glomerular Filtration Rate 7.4 mL/min (>60) 12.3 mL/min (>60) Glucose Level 154 MG/DL (74-106) H 244 MG/DL (74-106) H Lactic Acid Level 3.70 mmol/L (0.66-2.22) H 3.10 mmol/L (0.66-2.22) H Calcium Level 8.1 MG/DL (8.5-10.1) L 9.3 MG/DL (8.5-10.1) Arterial Blood pH 7.398 (7.350-7.450) Arterial Blood Partial Pressure CO2 41.8 mmHg (35.0-45.0) Arterial Blood Partial Pressure O2 47.1 mmHg (75.0-100.0) Arterial Blood HCO3 25.2 mmol/L (22.0-26.0) Arterial Blood Oxygen Saturation 82.9 % (92.0-98.0) L Arterial Blood Base Excess 0.3 Tomas Test Positive Total Bilirubin 1.0 MG/DL (0.2-1.0) Aspartate Amino Transf (AST/SGOT) 140 U/L (15-37) H Alanine Aminotransferase (ALT/SGPT) 191 U/L (12-78) H Alkaline Phosphatase 209 U/L (46-116) H Total Protein 4.5 G/DL (6.4-8.2) L Albumin 1.3 G/DL (3.4-5.0) L Globulin 3.2 g/dL Albumin/Globulin Ratio 0.4 (1.0-2.7) L Test 10/10/17 22:15 4/7/18 23:06 10/11/17 01:00 10/11/17 04:00 White Blood Count 5.4 K/UL (4.8-10.8) 3.4 K/UL (4.8-10.8) L Red Blood Count 3.24 M/UL (4.20-5.40) L 3.20 M/UL (4.20-5.40) L Hemoglobin 10.0 G/DL (12.0-16.0) L 9.8 G/DL (12.0-16.0) L Hematocrit 29.1 % (37.0-47.0) L 28.8 % (37.0-47.0) L Mean Corpuscular Volume 90 FL (80-99) 90 FL (80-99) Mean Corpuscular Hemoglobin 30.9 PG (27.0-31.0) 30.5 PG (27.0-31.0) Mean Corpuscular Hemoglobin Concent 34.3 G/DL (32.0-36.0) 33.8 G/DL (32.0-36.0) Red Cell Distribution Width 15.8 % (11.6-14.8) H 16.0 % (11.6-14.8) H Platelet Count 158 K/UL (150-450) 99 K/UL (150-450) L Mean Platelet Volume 8.7 FL (6.5-10.1) 8.9 FL (6.5-10.1) Neutrophils (%) (Auto) 80.0 % (45.0-75.0) H % (45.0-75.0) Lymphocytes (%) (Auto) 17.0 % (20.0-45.0) L % (20.0-45.0) Monocytes (%) (Auto) 1.6 % (1.0-10.0) % (1.0-10.0) Eosinophils (%) (Auto) 0.1 % (0.0-3.0) % (0.0-3.0) Basophils (%) (Auto) 1.4 % (0.0-2.0) % (0.0-2.0) Prothrombin Time 17.6 SEC (9.30-11.50) H 17.0 SEC (9.30-11.50) H Prothromb Time International Ratio 1.7 (0.9-1.1) H 1.6 (0.9-1.1) H Activated Partial Thromboplast Time 41 SEC (23-33) H 45 SEC (23-33) H Lactic Acid Level 12.60 mmol/L (0.66-2.22) H 10.80 mmol/L (0.66-2.22) H Troponin I 0.074 ng/mL (0.000-0.056) 0.192 ng/mL (0.000-0.056) Arterial Blood pH 7.286 (7.350-7.450) 7.377 (7.350-7.450) Arterial Blood Partial Pressure CO2 35.2 mmHg (35.0-45.0) 32.0 mmHg (35.0-45.0) L Arterial Blood Partial Pressure O2 92.6 mmHg (75.0-100.0) 86.1 mmHg (75.0-100.0) Arterial Blood HCO3 16.4 mmol/L (22.0-26.0) L 18.4 mmol/L (22.0-26.0) L Arterial Blood Oxygen Saturation 95.6 % (92.0-98.0) 95.4 % (92.0-98.0) Arterial Blood Base Excess -9.4 -5.9 Tomas Test Positive Positive Differential Total Cells Counted 100 Neutrophils % (Manual) 56 % (45-75) Lymphocytes % (Manual) 10 % (20-45) L Monocytes % (Manual) 5 % (1-10) Eosinophils % (Manual) 0 % (0-3) Basophils % (Manual) 0 % (0-2) Metamyelocytes % 1 % (0-0) H Band Neutrophils 28 % (0-8) H Nucleated Red Blood Cells 3 /100 WBC Platelet Estimate Decreased L Platelet Morphology Normal Polychromasia 2+ Hypochromasia 1+ Anisocytosis 1+ Haptoglobin Pending PTT Mixing Study Pending APTT Patient/Control Mix Pending Mix PTT Incubation Time Pending Mix PTT Normal/Saline 1:1 Immediate Pending Thrombin Time Normal Plasma Pending Sodium Level 144 MMOL/L (136-145) Potassium Level 3.9 MMOL/L (3.5-5.1) Chloride Level 105 MMOL/L (98-107) Carbon Dioxide Level 22 MMOL/L (21-32) Anion Gap 17 mmol/L (5-15) H Blood Urea Nitrogen 56 mg/dL (7-18) H Creatinine 3.9 MG/DL (0.55-1.30) H Estimat Glomerular Filtration Rate 12.7 mL/min (>60) Glucose Level 61 MG/DL (74-106) #L Calcium Level 8.1 MG/DL (8.5-10.1) L Phosphorus Level 4.3 MG/DL (2.5-4.9) Magnesium Level 2.0 MG/DL (1.8-2.4) Total Bilirubin 1.1 MG/DL (0.2-1.0) H Direct Bilirubin 0.5 MG/DL (0.0-0.3) H Aspartate Amino Transf (AST/SGOT) 188 U/L (15-37) H Alanine Aminotransferase (ALT/SGPT) 196 U/L (12-78) H Alkaline Phosphatase 196 U/L (46-116) H Lactate Dehydrogenase 411 U/L (81-234) H Total Protein 4.4 G/DL (6.4-8.2) L Albumin 1.3 G/DL (3.4-5.0) L Globulin 3.1 g/dL Albumin/Globulin Ratio 0.4 (1.0-2.7) L Random Vancomycin Level 11.9 ug/mL Test 10/11/17 06:10 Arterial Blood pH 7.389 (7.350-7.450) Arterial Blood Partial Pressure CO2 24.2 mmHg (35.0-45.0) *L Arterial Blood Partial Pressure O2 44.9 mmHg (75.0-100.0) Arterial Blood HCO3 14.3 mmol/L (22.0-26.0) L Arterial Blood Oxygen Saturation 78.8 % (92.0-98.0) L Arterial Blood Base Excess -9.3 Tomas Test Positive ET-Tube: 7.5 ET Position: 23 Labs: Laboratory Tests Test 10/10/17 12:10 10/10/17 13:45 10/10/17 21:05 10/10/17 21:45 White Blood Count 5.2 K/UL (4.8-10.8) # Red Blood Count 3.57 M/UL (4.20-5.40) L Hemoglobin 10.7 G/DL (12.0-16.0) L Hematocrit 31.5 % (37.0-47.0) L Mean Corpuscular Volume 88 FL (80-99) Mean Corpuscular Hemoglobin 30.0 PG (27.0-31.0) Mean Corpuscular Hemoglobin Concent 34.0 G/DL (32.0-36.0) Red Cell Distribution Width 15.3 % (11.6-14.8) H Platelet Count 194 K/UL (150-450) Mean Platelet Volume 7.6 FL (6.5-10.1) Neutrophils (%) (Auto) % (45.0-75.0) Lymphocytes (%) (Auto) % (20.0-45.0) Monocytes (%) (Auto) % (1.0-10.0) Eosinophils (%) (Auto) % (0.0-3.0) Basophils (%) (Auto) % (0.0-2.0) Differential Total Cells Counted 100 Neutrophils % (Manual) 48 % (45-75) Lymphocytes % (Manual) 23 % (20-45) Monocytes % (Manual) 11 % (1-10) H Eosinophils % (Manual) 0 % (0-3) Basophils % (Manual) 0 % (0-2) Metamyelocytes % 1 % (0-0) H Band Neutrophils 17 % (0-8) H Nucleated Red Blood Cells 2 /100 WBC Platelet Estimate Adequate Platelet Morphology Normal Polychromasia 1+ Hypochromasia 1+ Anisocytosis 1+ Sodium Level 140 MMOL/L (136-145) 146 MMOL/L (136-145) H Potassium Level 6.0 MMOL/L (3.5-5.1) *H 3.6 MMOL/L (3.5-5.1) Chloride Level 105 MMOL/L (98-107) 105 MMOL/L (98-107) Carbon Dioxide Level 19 MMOL/L (21-32) L 22 MMOL/L (21-32) Anion Gap 17 mmol/L (5-15) H 19 mmol/L (5-15) H Blood Urea Nitrogen 118 mg/dL (7-18) H 56 mg/dL (7-18) H Creatinine 6.2 MG/DL (0.55-1.30) H 4.0 MG/DL (0.55-1.30) H Estimat Glomerular Filtration Rate 7.4 mL/min (>60) 12.3 mL/min (>60) Glucose Level 154 MG/DL (74-106) H 244 MG/DL (74-106) H Lactic Acid Level 3.70 mmol/L (0.66-2.22) H 3.10 mmol/L (0.66-2.22) H Calcium Level 8.1 MG/DL (8.5-10.1) L 9.3 MG/DL (8.5-10.1) Arterial Blood pH 7.398 (7.350-7.450) Arterial Blood Partial Pressure CO2 41.8 mmHg (35.0-45.0) Arterial Blood Partial Pressure O2 47.1 mmHg (75.0-100.0) Arterial Blood HCO3 25.2 mmol/L (22.0-26.0) Arterial Blood Oxygen Saturation 82.9 % (92.0-98.0) L Arterial Blood Base Excess 0.3 Tomas Test Positive Total Bilirubin 1.0 MG/DL (0.2-1.0) Aspartate Amino Transf (AST/SGOT) 140 U/L (15-37) H Alanine Aminotransferase (ALT/SGPT) 191 U/L (12-78) H Alkaline Phosphatase 209 U/L (46-116) H Total Protein 4.5 G/DL (6.4-8.2) L Albumin 1.3 G/DL (3.4-5.0) L Globulin 3.2 g/dL Albumin/Globulin Ratio 0.4 (1.0-2.7) L Test 10/10/17 22:15 10/10/17 23:06 10/11/17 01:00 10/11/17 04:00 White Blood Count 5.4 K/UL (4.8-10.8) 3.4 K/UL (4.8-10.8) L Red Blood Count 3.24 M/UL (4.20-5.40) L 3.20 M/UL (4.20-5.40) L Hemoglobin 10.0 G/DL (12.0-16.0) L 9.8 G/DL (12.0-16.0) L Hematocrit 29.1 % (37.0-47.0) L 28.8 % (37.0-47.0) L Mean Corpuscular Volume 90 FL (80-99) 90 FL (80-99) Mean Corpuscular Hemoglobin 30.9 PG (27.0-31.0) 30.5 PG (27.0-31.0) Mean Corpuscular Hemoglobin Concent 34.3 G/DL (32.0-36.0) 33.8 G/DL (32.0-36.0) Red Cell Distribution Width 15.8 % (11.6-14.8) H 16.0 % (11.6-14.8) H Platelet Count 158 K/UL (150-450) 99 K/UL (150-450) L Mean Platelet Volume 8.7 FL (6.5-10.1) 8.9 FL (6.5-10.1) Neutrophils (%) (Auto) 80.0 % (45.0-75.0) H % (45.0-75.0) Lymphocytes (%) (Auto) 17.0 % (20.0-45.0) L % (20.0-45.0) Monocytes (%) (Auto) 1.6 % (1.0-10.0) % (1.0-10.0) Eosinophils (%) (Auto) 0.1 % (0.0-3.0) % (0.0-3.0) Basophils (%) (Auto) 1.4 % (0.0-2.0) % (0.0-2.0) Prothrombin Time 17.6 SEC (9.30-11.50) H 17.0 SEC (9.30-11.50) H Prothromb Time International Ratio 1.7 (0.9-1.1) H 1.6 (0.9-1.1) H Activated Partial Thromboplast Time 41 SEC (23-33) H 45 SEC (23-33) H Lactic Acid Level 12.60 mmol/L (0.66-2.22) H 10.80 mmol/L (0.66-2.22) H Troponin I 0.074 ng/mL (0.000-0.056) 0.192 ng/mL (0.000-0.056) Arterial Blood pH 7.286 (7.350-7.450) 7.377 (7.350-7.450) Arterial Blood Partial Pressure CO2 35.2 mmHg (35.0-45.0) 32.0 mmHg (35.0-45.0) L Arterial Blood Partial Pressure O2 92.6 mmHg (75.0-100.0) 86.1 mmHg (75.0-100.0) Arterial Blood HCO3 16.4 mmol/L (22.0-26.0) L 18.4 mmol/L (22.0-26.0) L Arterial Blood Oxygen Saturation 95.6 % (92.0-98.0) 95.4 % (92.0-98.0) Arterial Blood Base Excess -9.4 -5.9 Tomas Test Positive Positive Differential Total Cells Counted 100 Neutrophils % (Manual) 56 % (45-75) Lymphocytes % (Manual) 10 % (20-45) L Monocytes % (Manual) 5 % (1-10) Eosinophils % (Manual) 0 % (0-3) Basophils % (Manual) 0 % (0-2) Metamyelocytes % 1 % (0-0) H Band Neutrophils 28 % (0-8) H Nucleated Red Blood Cells 3 /100 WBC Platelet Estimate Decreased L Platelet Morphology Normal Polychromasia 2+ Hypochromasia 1+ Anisocytosis 1+ Haptoglobin Pending PTT Mixing Study Pending APTT Patient/Control Mix Pending Mix PTT Incubation Time Pending Mix PTT Normal/Saline 1:1 Immediate Pending Thrombin Time Normal Plasma Pending Sodium Level 144 MMOL/L (136-145) Potassium Level 3.9 MMOL/L (3.5-5.1) Chloride Level 105 MMOL/L (98-107) Carbon Dioxide Level 22 MMOL/L (21-32) Anion Gap 17 mmol/L (5-15) H Blood Urea Nitrogen 56 mg/dL (7-18) H Creatinine 3.9 MG/DL (0.55-1.30) H Estimat Glomerular Filtration Rate 12.7 mL/min (>60) Glucose Level 61 MG/DL (74-106) #L Calcium Level 8.1 MG/DL (8.5-10.1) L Phosphorus Level 4.3 MG/DL (2.5-4.9) Magnesium Level 2.0 MG/DL (1.8-2.4) Total Bilirubin 1.1 MG/DL (0.2-1.0) H Direct Bilirubin 0.5 MG/DL (0.0-0.3) H Aspartate Amino Transf (AST/SGOT) 188 U/L (15-37) H Alanine Aminotransferase (ALT/SGPT) 196 U/L (12-78) H Alkaline Phosphatase 196 U/L (46-116) H Lactate Dehydrogenase 411 U/L (81-234) H Total Protein 4.4 G/DL (6.4-8.2) L Albumin 1.3 G/DL (3.4-5.0) L Globulin 3.1 g/dL Albumin/Globulin Ratio 0.4 (1.0-2.7) L Random Vancomycin Level 11.9 ug/mL Test 10/11/17 06:10 Arterial Blood pH 7.389 (7.350-7.450) Arterial Blood Partial Pressure CO2 24.2 mmHg (35.0-45.0) *L Arterial Blood Partial Pressure O2 44.9 mmHg (75.0-100.0) Arterial Blood HCO3 14.3 mmol/L (22.0-26.0) L Arterial Blood Oxygen Saturation 78.8 % (92.0-98.0) L Arterial Blood Base Excess -9.3 Tomas Test Positive Layne Enamorado MD Oct 11, 2017 08:57
[2017-10-11] MEDS ORDERED: Zemuron 50mg/5ml Inj IV PRN (09:30)
--- NOTE | 2017-10-11 10:43 | General Progress Note ---
Progress Note Progress Note Surgery: unfortunately not responding to medical care and continues to deteriorate. hypotensive with increased pressor requirements. worsening respiratory status with hypoxia and increased ventilatory requirements. 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 no signs of perforation or complication. if bowel ischemia, need to address underlying etiology first (low flow/ hypotension) which she is not responsive to maximal medical efforts. unfortunately overall health poor and after acute insult from recent hemorrhage/ deteriorating condition her condition is worsening. discussed with family poor prognosis. family aware. Cornell Hong Oct 11, 2017 10:43
[2017-10-11] MEDS ORDERED: Dextrose 10% 1,000 ML IV SCH (11:00)
[2017-10-11] MEDS: Phenylephrine 50 MG in D5W 245 ML IV SCH ×2 (11:07→14:29)
--- NOTE | 2017-10-11 11:27 | Diagnostic Imaging Report ---
Indication: Dyspnea Comparison: 10/10/2017 A single view chest radiograph was obtained. Findings: Extensive bilateral infiltrates versus pulmonary edema demonstrated with. Tubes and lines are satisfactory. IMPRESSION: Bilateral infiltrates versus pulmonary edema
--- NOTE | 2017-10-11 11:36 | Diagnostic Imaging Report ---
Indication: Abdominal pain Comparison: None Single view of the abdomen obtained Findings: NG tube is present projected over the stomach. Dilated small bowel noted within the mid abdomen. Correlate clinically. Vascular calcifications are extensive involving small vessels in the pelvis. Bones are osteopenic. Calcified focus in the right lower quadrant is likely old renal transplant. IMPRESSION: Distended bowel in the midabdomen nonspecific. Ileus versus obstruction.
--- NOTE | 2017-10-11 11:37 | Diagnostic Imaging Report ---
Indication: Dyspnea Comparison: None A single view chest radiograph was obtained. Findings: Mild central interstitial edema suspected. Heart size is normal. There is a dilated lucent focus in the mid chest which may be a dilated esophagus. Follow-up suggested. Endotracheal tube, nasogastric tube, left jugular permacath and a right jugular central venous catheters are noted. IMPRESSION: Some interstitial densities involving the perihilar regions may be mild early interstitial edema versus infiltrates. Please correlate clinically. Follow-up suggested. Suggestion of a dilated esophagus. Further evaluation recommended.
--- NOTE | 2017-10-11 11:37 | Nephrology Progress Note ---
Assessment/Plan Problem List: (1) Shock (2) ESRD on HD (3) Acute blood loss anemia (4) Upper GI bleed Assessment at this point patient doing poorly- On Max pressors , intubated- Poor prognosis likely shock liver ESRD on HD for 12 years h/o failed kidney transplant High K on presentation GI Bleed, Hypotension Plan Plan Transfused previously HD ordered 10/09 , not done apparantly due to low BP, but no one informed me ! Endoscopy 10/10 again dialysis 10/10 done while many boluses given to keep bp up today: Albumin 5% one liter & hemodynamic support D10 for low Glucose Subjective ROS Limited/Unobtainable: Yes Constitutional: Reports: other - intubated- on trendelenberg- on max pressors Objective Objective Last 24 Hour Vital Signs Date Time Temp Pulse Resp B/P (MAP) Pulse Ox O2 Delivery O2 Flow Rate FiO2 10/11/17 11:14 103 39 100 10/11/17 11:07 103 33/14 10/11/17 09:23 110 30 100 10/11/17 08:46 99.6 10/11/17 08:30 113 38 99/68 83 Mechanical Ventilator 100 10/11/17 08:16 101.6 10/11/17 08:15 109 37 85/20 82 Mechanical Ventilator 100 10/11/17 08:09 111 38 88/29 82 Mechanical Ventilator 100 10/11/17 08:02 111 38 87/26 83 Mechanical Ventilator 100 10/11/17 08:00 111 38 69/28 83 Mechanical Ventilator 100 10/11/17 07:30 101.6 111 39 69/28 87 Mechanical Ventilator 100 101.6 111 10/11/17 07:01 113 40 100 10/11/17 07:00 86/22 10/11/17 07:00 114 38 88/22 87 Mechanical Ventilator 100 114 10/11/17 06:30 110 34 88/16 85 Mechanical Ventilator 100 110 10/11/17 06:14 85/41 10/11/17 06:00 113 39 85/41 87 Mechanical Ventilator 100 113 10/11/17 05:30 113 36 81/22 90 Mechanical Ventilator 100 113 10/11/17 05:13 113 34 100 10/11/17 05:00 113 34 77/26 90 Mechanical Ventilator 100 113 10/11/17 04:30 112 33 69/22 90 Mechanical Ventilator 100 112 10/11/17 04:15 100 10/11/17 04:00 111 34 88/21 98 Mechanical Ventilator 100 111 10/11/17 04:00 115 10/11/17 03:42 90/66 10/11/17 03:30 117 34 87/38 93 Mechanical Ventilator 100 117 10/11/17 03:27 118 34 100 10/11/17 03:00 120 33 105/45 94 Mechanical Ventilator 100 120 10/11/17 02:00 126 36 121/66 92 Mechanical Ventilator 100 126 10/11/17 01:07 128 32 100 10/11/17 01:00 122 27 117/91 95 Mechanical Ventilator 100 122 10/11/17 00:30 108 25 90/66 99 Mechanical Ventilator 100 108 10/11/17 00:30 108 25 90/ 99 Mechanical Ventilator 100 108 10/11/17 00:00 121 10/11/17 00:00 100 24 93/56 99 Mechanical Ventilator 100 100 10/10/17 23:49 99/68 10/10/17 22:45 122 31 99/68 97 Non-Rebreather 15.0 122 10/10/17 22:35 140 22 100 10/10/17 22:30 123 30 99/68 97 Non-Rebreather 15.0 123 10/10/17 22:15 129 29 102/63 97 Non-Rebreather 15.0 129 10/10/17 22:00 97.3 137 28 101/75 98 Non-Rebreather 15.0 97.3 137 10/10/17 21:45 97.4 141 31 129/84 82 Non-Rebreather 15.0 97.4 141 10/10/17 21:30 112 25 83/36 72 Nasal Cannula 5.0 112 10/10/17 21:12 97 Nasal Cannula 2.0 28 10/10/17 21:12 Non-Rebreather 15.0 100 10/10/17 21:00 118 28 83/36 82 Nasal Cannula 5.0 118 10/10/17 20:45 112 36 83/68 82 Nasal Cannula 5.0 112 10/10/17 20:33 82/48 10/10/17 20:31 76/51 10/10/17 20:30 108 33 56/32 81 Nasal Cannula 5.0 108 10/10/17 20:15 107 31 76/51 84 Nasal Cannula 5.0 107 10/10/17 20:00 97.9 108 35 44/28 88 Nasal Cannula 5.0 97.9 108 10/10/17 20:00 108 10/10/17 19:00 Nasal Cannula 5.0 10/10/17 19:00 97.8 109 24 103/43 Nasal Cannula 5.0 97.8 109 10/10/17 18:00 97.4 109 20 92/66 98 Nasal Cannula 2.0 97.4 108 10/10/17 17:00 108 20 82/64 98 Nasal Cannula 2.0 107 10/10/17 16:49 98.8 10/10/17 16:19 98.8 10/10/17 16:00 Nasal Cannula 5.0 10/10/17 16:00 107 10/10/17 16:00 107 20 105/80 98 Nasal Cannula 2.0 107 10/10/17 16:00 97.4 120 24 90/50 Nasal Cannula 5.0 97.4 10/10/17 15:22 Nasal Cannula 2.0 28 10/10/17 15:22 Nasal Cannula 2.0 28 10/10/17 15:07 Nasal Cannula 2.0 28 10/10/17 15:07 Nasal Cannula 2.0 28 10/10/17 15:00 104 20 103/40 91 Nasal Cannula 2.0 99 10/10/17 14:00 106 20 140/54 96 Nasal Cannula 2.0 99 10/10/17 13:00 98.8 107 20 98/53 96 Nasal Cannula 2.0 98.8 99 10/10/17 12:03 207.7 86 22 98 10/10/17 12:01 207.1 92 28 95 10/10/17 12:00 101 20 102/67 96 Nasal Cannula 2.0 99 10/10/17 12:00 99 Intake and Output 10/10/17 10/11/17 19:00 07:00 Intake Total 1050 ml 1762.5 ml Output Total 220 ml 1106 ml Balance 830 ml 656.5 ml IV Total 1050 ml 1762.5 ml Output Urine Total 0 ml 0 ml Emesis 220 ml 360 ml Hemodialysis UF 746 ml Laboratory Tests 10/10/17 12:10: White Blood Count 5.2#, Red Blood Count 3.57L, Hemoglobin 10.7L, Hematocrit 31.5L, Mean Corpuscular Volume 88, Mean Corpuscular Hemoglobin 30.0, Mean Corpuscular Hemoglobin Concent 34.0, Red Cell Distribution Width 15.3H, Platelet Count 194, Mean Platelet Volume 7.6, Neutrophils (%) (Auto) , Lymphocytes (%) (Auto) , Monocytes (%) (Auto) , Eosinophils (%) (Auto) , Basophils (%) (Auto) , Differential Total Cells Counted 100, Neutrophils % ( Manual) 48, Lymphocytes % (Manual) 23, Monocytes % (Manual) 11H, Eosinophils % ( Manual) 0, Basophils % (Manual) 0, Metamyelocytes % 1H, Band Neutrophils 17H, Nucleated Red Blood Cells 2, Platelet Estimate Adequate, Platelet Morphology Normal, Polychromasia 1+, Hypochromasia 1+, Anisocytosis 1+, Sodium Level 140, Potassium Level 6.0*H, Chloride Level 105, Carbon Dioxide Level 19L, Anion Gap 17H, Blood Urea Nitrogen 118H, Creatinine 6.2H, Estimat Glomerular Filtration Rate 7.4, Glucose Level 154H, Lactic Acid Level 3.70H, Calcium Level 8.1L 10/10/17 13:45: Lactic Acid Level 3.10H 10/10/17 21:05: Arterial Blood pH 7.398, Arterial Blood Partial Pressure CO2 41.8, Arterial Blood Partial Pressure O2 47.1*L, Arterial Blood HCO3 25.2, Arterial Blood Oxygen Saturation 82.9L, Arterial Blood Base Excess 0.3, Tomas Test Positive 10/10/17 21:45: Sodium Level 146H, Potassium Level 3.6, Chloride Level 105, Carbon Dioxide Level 22, Anion Gap 19H, Blood Urea Nitrogen 56H, Creatinine 4.0H, Estimat Glomerular Filtration Rate 12.3, Glucose Level 244H, Calcium Level 9.3, Total Bilirubin 1.0, Aspartate Amino Transf (AST/SGOT) 140H, Alanine Aminotransferase (ALT/SGPT) 191H, Alkaline Phosphatase 209H, Total Protein 4.5L, Albumin 1.3L, Globulin 3.2, Albumin/Globulin Ratio 0.4L 10/10/17 22:15: White Blood Count 5.4, Red Blood Count 3.24L, Hemoglobin 10.0L, Hematocrit 29.1L , Mean Corpuscular Volume 90, Mean Corpuscular Hemoglobin 30.9, Mean Corpuscular Hemoglobin Concent 34.3, Red Cell Distribution Width 15.8H, Platelet Count 158, Mean Platelet Volume 8.7, Neutrophils (%) (Auto) 80.0H, Lymphocytes (%) (Auto) 17.0L, Monocytes (%) (Auto) 1.6, Eosinophils (%) (Auto) 0.1, Basophils (%) (Auto) 1.4, Prothrombin Time 17.6H, Prothromb Time International Ratio 1.7H, Activated Partial Thromboplast Time 41H, Lactic Acid Level 12.60H, Troponin I 0.074H 10/10/17 23:06: Arterial Blood pH 7.286L, Arterial Blood Partial Pressure CO2 35.2, Arterial Blood Partial Pressure O2 92.6, Arterial Blood HCO3 16.4L, Arterial Blood Oxygen Saturation 95.6, Arterial Blood Base Excess -9.4, Tomas Test Positive 10/11/17 01:00: Arterial Blood pH 7.377, Arterial Blood Partial Pressure CO2 32.0L, Arterial Blood Partial Pressure O2 86.1, Arterial Blood HCO3 18.4L, Arterial Blood Oxygen Saturation 95.4, Arterial Blood Base Excess -5.9, Tomas Test Positive 10/11/17 04:00: White Blood Count 3.4L, Red Blood Count 3.20L, Hemoglobin 9.8L, Hematocrit 28.8L , Mean Corpuscular Volume 90, Mean Corpuscular Hemoglobin 30.5, Mean Corpuscular Hemoglobin Concent 33.8, Red Cell Distribution Width 16.0H, Platelet Count 99L, Mean Platelet Volume 8.9, Neutrophils (%) (Auto) , Lymphocytes (%) (Auto) , Monocytes (%) (Auto) , Eosinophils (%) (Auto) , Basophils (%) (Auto) , Prothrombin Time 17.0H, Prothromb Time International Ratio 1.6H, Activated Partial Thromboplast Time 45H, Lactic Acid Level 10.80H, Troponin I 0.192H, Differential Total Cells Counted 100, Neutrophils % (Manual) 56, Lymphocytes % (Manual) 10L, Monocytes % (Manual) 5, Eosinophils % (Manual) 0 , Basophils % (Manual) 0, Metamyelocytes % 1H, Band Neutrophils 28H, Nucleated Red Blood Cells 3, Platelet Estimate DecreasedL, Platelet Morphology Normal, Polychromasia 2+, Hypochromasia 1+, Anisocytosis 1+, Haptoglobin [Pending], PTT Mixing Study [Pending], APTT Patient/Control Mix [Pending], Mix PTT Incubation Time [Pending], Mix PTT Normal/Saline 1:1 Immediate [Pending], Thrombin Time Normal Plasma [Pending], Sodium Level 144, Potassium Level 3.9, Chloride Level 105, Carbon Dioxide Level 22, Anion Gap 17H, Blood Urea Nitrogen 56H, Creatinine 3.9H, Estimat Glomerular Filtration Rate 12.7, Glucose Level 61#L, Calcium Level 8.1L, Phosphorus Level 4.3, Magnesium Level 2.0, Total Bilirubin 1.1H, Direct Bilirubin 0.5H, Aspartate Amino Transf (AST/SGOT) 188H, Alanine Aminotransferase (ALT/SGPT) 196H, Alkaline Phosphatase 196H, Lactate Dehydrogenase 411H, Total Protein 4.4L, Albumin 1.3L, Globulin 3.1, Albumin/ Globulin Ratio 0.4L, Random Vancomycin Level 11.9 10/11/17 06:10: Arterial Blood pH 7.389, Arterial Blood Partial Pressure CO2 24.2*L, Arterial Blood Partial Pressure O2 44.9*L, Arterial Blood HCO3 14.3L, Arterial Blood Oxygen Saturation 78.8L, Arterial Blood Base Excess -9.3, Tomas Test Positive Height (Feet): 5 Height (Inches): 4.00 Weight (Pounds): 166 General Appearance: no apparent distress Cardiovascular: tachycardia Respiratory/Chest: decreased breath sounds Abdomen: distended BARTOLO SHARMA Oct 11, 2017 11:37
--- NOTE | 2017-10-11 11:54 | Diagnostic Imaging Report ---
Indication: Pain Comparison: Earlier today Findings: 3 views of the right foot were obtained. The cast was removed. The bones are severely osteopenic. There are fractures at the base of the second and third metatarsals and probably the fourth as well. There is also fracture of the fifth metatarsal base. Soft tissue swelling noted. IMPRESSION: Acute fractures as described above
--- NOTE | 2017-10-11 12:40 | General Progress Note ---
Assessment/Plan Problem List: (1) Hemorrhagic shock ICD Codes: R57.8 - Other shock SNOMED: 223877 (2) Septic shock ICD Codes: A41.9 - Sepsis, unspecified organism; R65.21 - Severe sepsis with septic shock SNOMED: 57054772 (3) Acute respiratory failure with hypoxia ICD Codes: J96.01 - Acute respiratory failure with hypoxia SNOMED: 61821856, 796953691 (4) Acute upper GI bleed ICD Codes: K92.2 - Gastrointestinal hemorrhage, unspecified SNOMED: 81847522 (5) Gram neg anna marie bacteremia (6) Asystole ICD Codes: I46.9 - Cardiac arrest, cause unspecified SNOMED: 286437105 (7) Hypotension ICD Codes: I95.9 - Hypotension, unspecified SNOMED: 87369193 (8) Acute blood loss anemia ICD Codes: D62 - Acute posthemorrhagic anemia SNOMED: 141159996 (9) ESRD on HD (10) Hyperkalemia ICD Codes: E87.5 - Hyperkalemia SNOMED: 98504854 (11) Hyponatremia ICD Codes: E87.1 - Hypo-osmolality and hyponatremia SNOMED: 05573832 (12) Lactic acidosis ICD Codes: E87.2 - Acidosis SNOMED: 81751372 (13) Toxic metabolic encephalopathy ICD Codes: G92 - Toxic encephalopathy SNOMED: 505247479 Status: stable Assessment/Plan GI consulted s/p EGD on 10/09/17 which was limited 2/2 clot in stomach; per Dr. Montelongo, bleeding, possibly from a Patsy-Clarke tear s/p hemoclip, epinephrine injection , and gold probe cauterization s/p EGD on 10/10/17 with evacuation of clots and clip placement PPI gtt s/p octreotide gtt Trend CBC; transfuse for hgb<7.5 or active bleeding s/p pRBC transfusions NPO General surgery consulted given persistent abd pain CT a/p reviewed Pt now with possible mesenteric ischemia or intestinal ischemia, but too high risk for OR Serial abd exams Cardiology consulted Hold BP meds Pulmonology/critical care consulted Cont on vent and wean as tolerated Cont on pressors to maintain MAP>60, wean as tolerated Nephrology consulted s/p HD on 10/10/17 Podiatry consulted given recent foot fractures F/u R foot x-ray--metatarsal fractures Wound care ID consulted given rising WBC Empiric vanco, cipro and flagyl per ID for intra-abdominal coverage Pain control, bowel regimen Supportive care *Pt is in critical condition. Pressors and vent requirements increasing. Poor prognosis DVT ppx: SCDs FULL CODE. Have recommended DNAR. Family in discussion At the time of my involvement, the patient's condition was critical with high potential for and/or physiologic deterioration secondary to acute upper GI bleed, shock, respiratory failure as delineated in the note above. On the above date of service, I spent a total of 44 minutes in the ICU evaluating, managing, and providing critical care services to this patient, including time spent documenting these activities, counseling patient/family, and coordinating care. Critical care services performed include: Telemetry Review Vent mgmt Hemodynamic measurement interpretation Laboratory data review and interpretation Discussion of care plans with patient, family, and/or surrogate decision makers Discussion of patient's care with primary medical team, surgical team, and/or consulting service Decision to obtain further radiologic evaluation, after consideration of risk/ benefit ratio Decision to perform invasive procedure, after consideration of risk/benefit ratio Discussion of patient's code status and further advancement towards the ultimate goals of care D/w pt, family, RN, GI, renal, cardiology, pulmonology regarding mgmt and dispo. D/w GI re EGD results, diet, PPI gtt. D/w surgery re plan of care. D/w ID re abx, blood cx results. D/w pulm re pressors and vent mgmt. D/w family extensively regarding plan of care Time of note may not reflect time of encounter. Subjective Date patient seen: Oct 11, 2017 Time patient seen: 12:39 ROS Limited/Unobtainable: Yes Allergies: Coded Allergies: CODEINE (Unverified Allergy, Unknown, 10/16/14) IODINE (Unverified Allergy, Unknown, 10/16/14) MORPHINE (Unverified Allergy, Unknown, 10/16/14) PENICILLINS (Unverified Allergy, Unknown, 10/16/14) Subjective Had HD yesterday Became hypotensive yesterday after HD. Started on pressors. Became hypoxic and went into asystole. Pt was intubated and resuscitated. After abt 20min she had ROSC Low BPs. Pressors being maxed out. On levophed, vasopressin and dwight. Cont to be tachypneic and hypoxic. Vent requirements increasing. FiO2 100%. PEEP being increased given hypoxia Seen by surgery yesterday, possibly mesenteric ischemia or intestinal ischemia, but pt too high risk for OR Bilious emesis and bilious NG tube output Hgb fairly stable Fever to 102 today. Blood cx came back with 2 bottles GNR Pt intubated, unresponsive (not on sedation) Multiple family members at bedside were updated on plan of care, and recommended DNAR. They are still discussing amongst each other Objective Last 24 Hour Vital Signs Date Time Temp Pulse Resp B/P (MAP) Pulse Ox O2 Delivery O2 Flow Rate FiO2 10/11/17 11:14 103 39 100 10/11/17 11:07 103 33/14 10/11/17 09:23 110 30 100 10/11/17 08:46 99.6 10/11/17 08:30 113 38 99/68 83 Mechanical Ventilator 100 10/11/17 08:16 101.6 10/11/17 08:15 109 37 85/20 82 Mechanical Ventilator 100 10/11/17 08:09 111 38 88/29 82 Mechanical Ventilator 100 10/11/17 08:02 111 38 87/26 83 Mechanical Ventilator 100 10/11/17 08:00 111 38 69/28 83 Mechanical Ventilator 100 10/11/17 07:30 101.6 111 39 69/28 87 Mechanical Ventilator 100 101.6 111 10/11/17 07:01 113 40 100 10/11/17 07:00 86/22 10/11/17 07:00 114 38 88/22 87 Mechanical Ventilator 100 114 10/11/17 06:30 110 34 88/16 85 Mechanical Ventilator 100 110 10/11/17 06:14 85/41 10/11/17 06:00 113 39 85/41 87 Mechanical Ventilator 100 113 10/11/17 05:30 113 36 81/22 90 Mechanical Ventilator 100 113 10/11/17 05:13 113 34 100 10/11/17 05:00 113 34 77/26 90 Mechanical Ventilator 100 113 10/11/17 04:30 112 33 69/22 90 Mechanical Ventilator 100 112 10/11/17 04:15 100 10/11/17 04:00 111 34 88/21 98 Mechanical Ventilator 100 111 10/11/17 04:00 115 10/11/17 03:42 90/66 10/11/17 03:30 117 34 87/38 93 Mechanical Ventilator 100 117 10/11/17 03:27 118 34 100 10/11/17 03:00 120 33 105/45 94 Mechanical Ventilator 100 120 10/11/17 02:00 126 36 121/66 92 Mechanical Ventilator 100 126 10/11/17 01:07 128 32 100 10/11/17 01:00 122 27 117/91 95 Mechanical Ventilator 100 122 10/11/17 00:30 108 25 90/66 99 Mechanical Ventilator 100 108 10/11/17 00:30 108 25 90/66 99 Mechanical Ventilator 100 108 10/11/17 00:00 121 10/11/17 00:00 100 24 93/56 99 Mechanical Ventilator 100 100 10/10/17 23:49 99/68 10/10/17 22:45 122 31 99/68 97 Non-Rebreather 15.0 122 10/10/17 22:35 140 22 100 10/10/17 22:30 123 30 99/68 97 Non-Rebreather 15.0 123 10/10/17 22:15 129 29 102/63 97 Non-Rebreather 15.0 129 10/10/17 22:00 97.3 137 28 101/75 98 Non-Rebreather 15.0 97.3 137 10/10/17 21:45 97.4 141 31 129/84 82 Non-Rebreather 15.0 97.4 141 10/10/17 21:30 112 25 83/36 72 Nasal Cannula 5.0 112 10/10/17 21:12 97 Nasal Cannula 2.0 28 10/10/17 21:12 Non-Rebreather 15.0 100 10/10/17 21:00 118 28 83/36 82 Nasal Cannula 5.0 118 10/10/17 20:45 112 36 83/68 82 Nasal Cannula 5.0 112 10/10/17 20:33 82/48 10/10/17 20:31 76/51 10/10/17 20:30 108 33 56/32 81 Nasal Cannula 5.0 108 10/10/17 20:15 107 31 76/51 84 Nasal Cannula 5.0 107 10/10/17 20:00 97.9 108 35 44/28 88 Nasal Cannula 5.0 97.9 108 10/10/17 20:00 108 10/10/17 19:00 Nasal Cannula 5.0 10/10/17 19:00 97.8 109 24 103/43 Nasal Cannula 5.0 97.8 109 10/10/17 18:00 97.4 109 20 92/66 98 Nasal Cannula 2.0 97.4 108 10/10/17 17:00 108 20 82/64 98 Nasal Cannula 2.0 107 10/10/17 16:49 98.8 10/10/17 16:19 98.8 10/10/17 16:00 Nasal Cannula 5.0 10/10/17 16:00 107 10/10/17 16:00 107 20 105/80 98 Nasal Cannula 2.0 107 10/10/17 16:00 97.4 120 24 90/50 Nasal Cannula 5.0 97.4 10/10/17 15:22 Nasal Cannula 2.0 28 10/10/17 15:22 Nasal Cannula 2.0 28 10/10/17 15:07 Nasal Cannula 2.0 28 10/10/17 15:07 Nasal Cannula 2.0 28 10/10/17 15:00 104 20 103/40 91 Nasal Cannula 2.0 99 10/10/17 14:00 106 20 140/54 96 Nasal Cannula 2.0 99 10/10/17 13:00 98.8 107 20 98/53 96 Nasal Cannula 2.0 98.8 99 Intake and Output 10/10/17 10/11/17 19:00 07:00 Intake Total 1050 ml 1762.5 ml Output Total 220 ml 1106 ml Balance 830 ml 656.5 ml IV Total 1050 ml 1762.5 ml Output Urine Total 0 ml 0 ml Emesis 220 ml 360 ml Hemodialysis UF 746 ml Laboratory Tests 10/10/17 13:45: Lactic Acid Level 3.10H 10/10/17 21:05: Arterial Blood pH 7.398, Arterial Blood Partial Pressure CO2 41.8, Arterial Blood Partial Pressure O2 47.1*L, Arterial Blood HCO3 25.2, Arterial Blood Oxygen Saturation 82.9L, Arterial Blood Base Excess 0.3, Tomas Test Positive 10/10/17 21:45: Sodium Level 146H, Potassium Level 3.6, Chloride Level 105, Carbon Dioxide Level 22, Anion Gap 19H, Blood Urea Nitrogen 56H, Creatinine 4.0H, Estimat Glomerular Filtration Rate 12.3, Glucose Level 244H, Calcium Level 9.3, Total Bilirubin 1.0, Aspartate Amino Transf (AST/SGOT) 140H, Alanine Aminotransferase (ALT/SGPT) 191H, Alkaline Phosphatase 209H, Total Protein 4.5L, Albumin 1.3L, Globulin 3.2, Albumin/Globulin Ratio 0.4L 10/10/17 22:15: Lactic Acid Level 12.60H, White Blood Count 5.4, Red Blood Count 3.24L, Hemoglobin 10.0L, Hematocrit 29.1L, Mean Corpuscular Volume 90, Mean Corpuscular Hemoglobin 30.9, Mean Corpuscular Hemoglobin Concent 34.3, Red Cell Distribution Width 15.8H, Platelet Count 158, Mean Platelet Volume 8.7, Neutrophils (%) (Auto) 80.0H, Lymphocytes (%) (Auto) 17.0L, Monocytes (%) (Auto ) 1.6, Eosinophils (%) (Auto) 0.1, Basophils (%) (Auto) 1.4, Prothrombin Time 17.6H, Prothromb Time International Ratio 1.7H, Activated Partial Thromboplast Time 41H, Troponin I 0.074H 10/10/17 23:06: Arterial Blood pH 7.286L, Arterial Blood Partial Pressure CO2 35.2, Arterial Blood Partial Pressure O2 92.6, Arterial Blood HCO3 16.4L, Arterial Blood Oxygen Saturation 95.6, Arterial Blood Base Excess -9.4, Tomas Test Positive 10/11/17 01:00: Arterial Blood pH 7.377, Arterial Blood Partial Pressure CO2 32.0L, Arterial Blood Partial Pressure O2 86.1, Arterial Blood HCO3 18.4L, Arterial Blood Oxygen Saturation 95.4, Arterial Blood Base Excess -5.9, Tomas Test Positive 10/11/17 04:00: White Blood Count 3.4L, Red Blood Count 3.20L, Hemoglobin 9.8L, Hematocrit 28.8L , Mean Corpuscular Volume 90, Mean Corpuscular Hemoglobin 30.5, Mean Corpuscular Hemoglobin Concent 33.8, Red Cell Distribution Width 16.0H, Platelet Count 99L, Mean Platelet Volume 8.9, Neutrophils (%) (Auto) , Lymphocytes (%) (Auto) , Monocytes (%) (Auto) , Eosinophils (%) (Auto) , Basophils (%) (Auto) , Differential Total Cells Counted 100, Neutrophils % ( Manual) 56, Lymphocytes % (Manual) 10L, Monocytes % (Manual) 5, Eosinophils % ( Manual) 0, Basophils % (Manual) 0, Metamyelocytes % 1H, Band Neutrophils 28H, Nucleated Red Blood Cells 3, Platelet Estimate DecreasedL, Platelet Morphology Normal, Polychromasia 2+, Hypochromasia 1+, Anisocytosis 1+, Haptoglobin [ Pending], Prothrombin Time 17.0H, Prothromb Time International Ratio 1.6H, Activated Partial Thromboplast Time 45H, PTT Mixing Study [Pending], APTT Patient/Control Mix [Pending], Mix PTT Incubation Time [Pending], Mix PTT Normal /Saline 1:1 Immediate [Pending], Thrombin Time Normal Plasma [Pending], Sodium Level 144, Potassium Level 3.9, Chloride Level 105, Carbon Dioxide Level 22, Anion Gap 17H, Blood Urea Nitrogen 56H, Creatinine 3.9H, Estimat Glomerular Filtration Rate 12.7, Glucose Level 61#L, Lactic Acid Level 10.80H, Calcium Level 8.1L, Phosphorus Level 4.3, Magnesium Level 2.0, Total Bilirubin 1.1H, Direct Bilirubin 0.5H, Aspartate Amino Transf (AST/SGOT) 188H, Alanine Aminotransferase (ALT/SGPT) 196H, Alkaline Phosphatase 196H, Lactate Dehydrogenase 411H, Troponin I 0.192H, C-Reactive Protein, Quantitative > 70.0H , Total Protein 4.4L, Albumin 1.3L, Globulin 3.1, Albumin/Globulin Ratio 0.4L, Random Vancomycin Level 11.9 10/11/17 06:10: Arterial Blood pH 7.389, Arterial Blood Partial Pressure CO2 24.2*L, Arterial Blood Partial Pressure O2 44.9*L, Arterial Blood HCO3 14.3L, Arterial Blood Oxygen Saturation 78.8L, Arterial Blood Base Excess -9.3, Tomas Test Positive Height (Feet): 5 Height (Inches): 4.00 Weight (Pounds): 166 Objective General: alert, cooperative, no distress, appears stated age, lethargic Head: normocephalic, without obvious abnormality, atraumatic Eyes: conjunctivae/corneas clear. PERRL, EOM's intact Throat: lips, mucosa, and tongue normal. MMM Neck: supple, symmetrical, trachea midline, and no JVD Lungs: clear to auscultation bilaterally Heart: regular rate and rhythm, S1, S2 normal, no murmur, click, rub or gallop Abdomen: soft, +TTP of abd diffusely w/o rebound/guarding, non-distended, bowel sounds normal Extremities: extremities normal, atraumatic, no cyanosis or edema Pulses: 2+ and symmetric Skin: skin color, texture, turgor normal; no rashes or lesions Neurologic: grossly normal, no focal deficits Channing Mejia M.D. Oct 11, 2017 12:39
[2017-10-11] MEDS ORDERED: Amikacin Rx to dose MISC PRN (13:30)
[2017-10-11] MEDS ORDERED: Norepinephrine Bitartrate 8 MG in D5W 500ml 550 ML IV SCH (14:00)
[2017-10-11] MEDS ORDERED: Aztreonam Inj 1 GM in D5W 55 ML IVPB SCH (14:00)
[2017-10-11] MEDS ORDERED: Aztreonam Inj 2 GM in D5W 110 ML IVPB ONE (14:30)
--- NOTE | 2017-10-11 14:51 | Infectious Diseases Prog Note ---
Assessment/Plan Assessment/Plan Full consult dictated: A) 1) s/p code, sepsis, shock, gram neg bacteremia, ? gi source, ? line, poorly responsive, respiratory failure, gib, s/p egd, right foot blister 2) esrd, hd, hd line, 3) pmh noted 4) allergy pcn P) 1) vancomycin, amikacin, aztreonam, flagyl 2) check labs, chest x-ray, id bc, f/u bc, sc 3) surgery f/u, podiatry f/u, GI f/u 4) continue treatment per Dr. Snell 5) critical 6) d/w Dr. Snell Subjective Constitutional: Reports: fever, other - on vent, s/p code, poorly responsive HEENT: Reports: congestion Respiratory: Reports: shortness of breath Cardiovascular: Reports: other - on pressors Gastrointestinal/Abdominal: Denies: diarrhea Genitourinary: Reports: other - no kowalski Allergies: Coded Allergies: CODEINE (Unverified Allergy, Unknown, 10/16/14) IODINE (Unverified Allergy, Unknown, 10/16/14) MORPHINE (Unverified Allergy, Unknown, 10/16/14) PENICILLINS (Unverified Allergy, Unknown, 10/16/14) Objective Vital Signs Last 24 Hour Vital Signs Date Time Temp Pulse Resp B/P (MAP) Pulse Ox O2 Delivery O2 Flow Rate FiO2 10/11/17 14:29 104 125/78 10/11/17 13:44 116/62 10/11/17 13:18 104 42 100 10/11/17 12:00 100 10/11/17 11:45 108 41 65/37 76 10/11/17 11:30 109 41 55/20 83 10/11/17 11:15 106 41 56/25 77 10/11/17 11:14 103 39 100 10/11/17 11:14 106 40 63/23 76 10/11/17 11:07 103 33/14 10/11/17 11:00 103 39 49/18 75 10/11/17 10:45 105 39 33/14 75 10/11/17 10:30 106 39 45/20 77 10/11/17 10:24 108 37 52/12 80 10/11/17 10:15 109 37 40/18 74 Mechanical Ventilator 100 10/11/17 10:12 109 36 31/12 74 Mechanical Ventilator 100 10/11/17 10:04 105 34 38/20 78 Mechanical Ventilator 100 10/11/17 10:00 115 10/11/17 09:58 102 28 30/12 77 Mechanical Ventilator 100 10/11/17 09:56 102 27 43/24 79 Mechanical Ventilator 100 10/11/17 09:53 102 29 49/23 79 Mechanical Ventilator 100 10/11/17 09:45 104 29 57/19 80 Mechanical Ventilator 100 10/11/17 09:30 107 31 57/30 81 Mechanical Ventilator 100 10/11/17 09:23 110 30 100 10/11/17 09:15 110 34 94/58 83 Mechanical Ventilator 100 10/11/17 09:00 115 38 121/90 64 Mechanical Ventilator 100 10/11/17 09:00 116/62 10/11/17 08:46 99.6 10/11/17 08:30 113 38 99/68 83 Mechanical Ventilator 100 10/11/17 08:16 101.6 10/11/17 08:15 109 37 85/20 82 Mechanical Ventilator 100 10/11/17 08:09 111 38 88/29 82 Mechanical Ventilator 100 10/11/17 08:02 111 38 87/26 83 Mechanical Ventilator 100 10/11/17 08:00 100 10/11/17 08:00 111 38 69/28 83 Mechanical Ventilator 100 10/11/17 07:30 101.6 111 39 69/28 87 Mechanical Ventilator 100 101.6 111 10/11/17 07:01 113 40 100 10/11/17 07:00 86/22 10/11/17 07:00 114 38 88/22 87 Mechanical Ventilator 100 114 10/11/17 06:30 110 34 88/16 85 Mechanical Ventilator 100 110 10/11/17 06:14 85/41 10/11/17 06:00 113 39 85/41 87 Mechanical Ventilator 100 113 10/11/17 05:30 113 36 81/22 90 Mechanical Ventilator 100 113 10/11/17 05:13 113 34 100 10/11/17 05:00 113 34 77/26 90 Mechanical Ventilator 100 113 10/11/17 04:30 112 33 69/22 90 Mechanical Ventilator 100 112 10/11/17 04:15 100 10/11/17 04:00 111 34 88/21 98 Mechanical Ventilator 100 111 10/11/17 04:00 115 10/11/17 03:42 90/66 10/11/17 03:30 117 34 87/38 93 Mechanical Ventilator 100 117 10/11/17 03:27 118 34 100 10/11/17 03:00 120 33 105/45 94 Mechanical Ventilator 100 120 10/11/17 02:00 126 36 121/66 92 Mechanical Ventilator 100 126 10/11/17 01:07 128 32 100 10/11/17 01:00 122 27 117/91 95 Mechanical Ventilator 100 122 10/11/17 00:30 108 25 90/66 99 Mechanical Ventilator 100 108 10/11/17 00:30 108 25 90/66 99 Mechanical Ventilator 100 108 10/11/17 00:00 121 10/11/17 00:00 100 24 93/56 99 Mechanical Ventilator 100 100 10/10/17 23:49 99/68 10/10/17 22:45 122 31 99/68 97 Non-Rebreather 15.0 122 10/10/17 22:35 140 22 100 10/10/17 22:30 123 30 99/68 97 Non-Rebreather 15.0 123 10/10/17 22:15 129 29 102/63 97 Non-Rebreather 15.0 129 10/10/17 22:00 97.3 137 28 101/75 98 Non-Rebreather 15.0 97.3 137 10/10/17 21:45 97.4 141 31 129/84 82 Non-Rebreather 15.0 97.4 141 10/10/17 21:30 112 25 83/36 72 Nasal Cannula 5.0 112 10/10/17 21:12 97 Nasal Cannula 2.0 28 10/10/17 21:12 Non-Rebreather 15.0 100 10/10/17 21:00 118 28 83/36 82 Nasal Cannula 5.0 118 10/10/17 20:45 112 36 83/68 82 Nasal Cannula 5.0 112 10/10/17 20:33 82/48 10/10/17 20:31 76/51 10/10/17 20:30 108 33 56/32 81 Nasal Cannula 5.0 108 10/10/17 20:15 107 31 76/51 84 Nasal Cannula 5.0 107 10/10/17 20:00 97.9 108 35 44/28 88 Nasal Cannula 5.0 97.9 108 10/10/17 20:00 108 10/10/17 19:00 Nasal Cannula 5.0 10/10/17 19:00 97.8 109 24 103/43 Nasal Cannula 5.0 97.8 109 10/10/17 18:00 97.4 109 20 92/66 98 Nasal Cannula 2.0 97.4 108 10/10/17 17:00 108 20 82/64 98 Nasal Cannula 2.0 107 10/10/17 16:49 98.8 10/10/17 16:19 98.8 10/10/17 16:00 Nasal Cannula 5.0 10/10/17 16:00 107 10/10/17 16:00 107 20 105/80 98 Nasal Cannula 2.0 107 10/10/17 16:00 97.4 120 24 90/50 Nasal Cannula 5.0 97.4 10/10/17 15:22 Nasal Cannula 2.0 28 10/10/17 15:22 Nasal Cannula 2.0 28 10/10/17 15:07 Nasal Cannula 2.0 28 10/10/17 15:07 Nasal Cannula 2.0 28 10/10/17 15:00 104 20 103/40 91 Nasal Cannula 2.0 99 Height (Feet): 5 Height (Inches): 4.00 Weight (Pounds): 166 General Appearance: other - poorly responsive, on vent HEENT: normocephalic, atraumatic, other - oral - Respiratory/Chest: crackles/rales, rhonchi - bilaterally Cardiovascular: normal rate, regular rhythm Abdomen: hypoactive bowel sounds Microbiology Date/Time Source Procedure Growth Status 10/10/17 14:45 Blood Blood Culture - Preliminary Resulted Laboratory Tests Test 10/10/17 21:05 10/10/17 21:45 10/10/17 22:15 10/10/17 23:06 Arterial Blood pH 7.398 (7.350-7.450) 7.286 (7.350-7.450) Arterial Blood Partial Pressure CO2 41.8 mmHg (35.0-45.0) 35.2 mmHg (35.0-45.0) Arterial Blood Partial Pressure O2 47.1 mmHg (75.0-100.0) 92.6 mmHg (75.0-100.0) Arterial Blood HCO3 25.2 mmol/L (22.0-26.0) 16.4 mmol/L (22.0-26.0) L Arterial Blood Oxygen Saturation 82.9 % (92.0-98.0) L 95.6 % (92.0-98.0) Arterial Blood Base Excess 0.3 -9.4 Tomas Test Positive Positive Sodium Level 146 MMOL/L (136-145) H Potassium Level 3.6 MMOL/L (3.5-5.1) Chloride Level 105 MMOL/L (98-107) Carbon Dioxide Level 22 MMOL/L (21-32) Anion Gap 19 mmol/L (5-15) H Blood Urea Nitrogen 56 mg/dL (7-18) H Creatinine 4.0 MG/DL (0.55-1.30) H Estimat Glomerular Filtration Rate 12.3 mL/min (>60) Glucose Level 244 MG/DL (74-106) H Calcium Level 9.3 MG/DL (8.5-10.1) Total Bilirubin 1.0 MG/DL (0.2-1.0) Aspartate Amino Transf (AST/SGOT) 140 U/L (15-37) H Alanine Aminotransferase (ALT/SGPT) 191 U/L (12-78) H Alkaline Phosphatase 209 U/L (46-116) H Total Protein 4.5 G/DL (6.4-8.2) L Albumin 1.3 G/DL (3.4-5.0) L Globulin 3.2 g/dL Albumin/Globulin Ratio 0.4 (1.0-2.7) L White Blood Count 5.4 K/UL (4.8-10.8) Red Blood Count 3.24 M/UL (4.20-5.40) L Hemoglobin 10.0 G/DL (12.0-16.0) L Hematocrit 29.1 % (37.0-47.0) L Mean Corpuscular Volume 90 FL (80-99) Mean Corpuscular Hemoglobin 30.9 PG (27.0-31.0) Mean Corpuscular Hemoglobin Concent 34.3 G/DL (32.0-36.0) Red Cell Distribution Width 15.8 % (11.6-14.8) H Platelet Count 158 K/UL (150-450) Mean Platelet Volume 8.7 FL (6.5-10.1) Neutrophils (%) (Auto) 80.0 % (45.0-75.0) H Lymphocytes (%) (Auto) 17.0 % (20.0-45.0) L Monocytes (%) (Auto) 1.6 % (1.0-10.0) Eosinophils (%) (Auto) 0.1 % (0.0-3.0) Basophils (%) (Auto) 1.4 % (0.0-2.0) Prothrombin Time 17.6 SEC (9.30-11.50) H Prothromb Time International Ratio 1.7 (0.9-1.1) H Activated Partial Thromboplast Time 41 SEC (23-33) H Lactic Acid Level 12.60 mmol/L (0.66-2.22) H Troponin I 0.074 ng/mL (0.000-0.056) Test 10/11/17 01:00 10/11/17 04:00 10/11/17 06:10 10/11/17 13:25 Arterial Blood pH 7.377 (7.350-7.450) 7.389 (7.350-7.450) Arterial Blood Partial Pressure CO2 32.0 mmHg (35.0-45.0) L 24.2 mmHg (35.0-45.0) *L Arterial Blood Partial Pressure O2 86.1 mmHg (75.0-100.0) 44.9 mmHg (75.0-100.0) Arterial Blood HCO3 18.4 mmol/L (22.0-26.0) L 14.3 mmol/L (22.0-26.0) L Arterial Blood Oxygen Saturation 95.4 % (92.0-98.0) 78.8 % (92.0-98.0) L Arterial Blood Base Excess -5.9 -9.3 Tomas Test Positive Positive White Blood Count 3.4 K/UL (4.8-10.8) L Red Blood Count 3.20 M/UL (4.20-5.40) L Hemoglobin 9.8 G/DL (12.0-16.0) L Hematocrit 28.8 % (37.0-47.0) L Mean Corpuscular Volume 90 FL (80-99) Mean Corpuscular Hemoglobin 30.5 PG (27.0-31.0) Mean Corpuscular Hemoglobin Concent 33.8 G/DL (32.0-36.0) Red Cell Distribution Width 16.0 % (11.6-14.8) H Platelet Count 99 K/UL (150-450) L Mean Platelet Volume 8.9 FL (6.5-10.1) Neutrophils (%) (Auto) % (45.0-75.0) Lymphocytes (%) (Auto) % (20.0-45.0) Monocytes (%) (Auto) % (1.0-10.0) Eosinophils (%) (Auto) % (0.0-3.0) Basophils (%) (Auto) % (0.0-2.0) Differential Total Cells Counted 100 Neutrophils % (Manual) 56 % (45-75) Lymphocytes % (Manual) 10 % (20-45) L Monocytes % (Manual) 5 % (1-10) Eosinophils % (Manual) 0 % (0-3) Basophils % (Manual) 0 % (0-2) Metamyelocytes % 1 % (0-0) H Band Neutrophils 28 % (0-8) H Nucleated Red Blood Cells 3 /100 WBC Platelet Estimate Decreased L Platelet Morphology Normal Polychromasia 2+ Hypochromasia 1+ Anisocytosis 1+ Haptoglobin Pending Prothrombin Time 17.0 SEC (9.30-11.50) H Prothromb Time International Ratio 1.6 (0.9-1.1) H Activated Partial Thromboplast Time 45 SEC (23-33) H PTT Mixing Study Pending APTT Patient/Control Mix Pending Mix PTT Incubation Time Pending Mix PTT Normal/Saline 1:1 Immediate Pending Thrombin Time Normal Plasma Pending Sodium Level 144 MMOL/L (136-145) Potassium Level 3.9 MMOL/L (3.5-5.1) Chloride Level 105 MMOL/L (98-107) Carbon Dioxide Level 22 MMOL/L (21-32) Anion Gap 17 mmol/L (5-15) H Blood Urea Nitrogen 56 mg/dL (7-18) H Creatinine 3.9 MG/DL (0.55-1.30) H Estimat Glomerular Filtration Rate 12.7 mL/min (>60) Glucose Level 61 MG/DL (74-106) #L Lactic Acid Level 10.80 mmol/L (0.66-2.22) H 13.70 mmol/L (0.66-2.22) H Calcium Level 8.1 MG/DL (8.5-10.1) L Phosphorus Level 4.3 MG/DL (2.5-4.9) Magnesium Level 2.0 MG/DL (1.8-2.4) Total Bilirubin 1.1 MG/DL (0.2-1.0) H Direct Bilirubin 0.5 MG/DL (0.0-0.3) H Aspartate Amino Transf (AST/SGOT) 188 U/L (15-37) H Alanine Aminotransferase (ALT/SGPT) 196 U/L (12-78) H Alkaline Phosphatase 196 U/L (46-116) H Lactate Dehydrogenase 411 U/L (81-234) H Troponin I 0.192 ng/mL (0.000-0.056) C-Reactive Protein, Quantitative > 70.0 mg/dL (0.00-0.90) H Total Protein 4.4 G/DL (6.4-8.2) L Albumin 1.3 G/DL (3.4-5.0) L Globulin 3.1 g/dL Albumin/Globulin Ratio 0.4 (1.0-2.7) L Random Vancomycin Level 11.9 ug/mL Current Medications Medications (Trade) Dose Ordered Sig/Loida Route PRN Reason Start Time Stop Time Status Last Admin Dose Admin Acetaminophen (Tylenol) 650 mg Q4H PRN ORAL Mild Pain (Scale 1-3)/Fever 10/08/17 16:15 11/07/17 16:14 10/09/17 04:17 Acetaminophen (Tylenol) 650 mg Q4H PRN RECTAL Mild Pain (1-3)/Fever 10/08/17 16:15 11/07/17 16:14 10/11/17 08:16 Albumin Human 500 ml @ 999 mls/hr Q6H IV 10/11/17 18:00 10/12/17 12:31 Amikacin Protocol (Amikacin pharmacy to dose) 1 ea DAILYPRN PRN MISC Per rx protocol 10/11/17 13:30 11/10/17 13:29 Amikacin Sulfate 500 mg/Sodium Chloride 112 ml @ 112 mls/hr ONCE ONCE IV 10/11/17 15:30 10/11/17 16:29 Aztreonam 0.5 gm/ Sodium Chloride 55 ml @ 110 mls/hr Q6H IVPB 10/11/17 20:00 10/18/17 19:59 Aztreonam 2 gm/ Dextrose 110 ml @ 110 mls/hr ONCE ONCE IVPB 10/11/17 14:30 10/11/17 15:29 Chlorhexidine Gluconate (Ashlie-Hex 2%) 1 applic DAILY@2000 TOPIC 10/09/17 20:00 11/08/17 19:59 10/10/17 20:00 Dextrose 1,000 ml @ 50 mls/hr Q20H IV 10/11/17 11:00 11/10/17 10:59 10/11/17 10:58 Dextrose (Dextrose 50%) 25 ml STAT PRN IV Hypoglycemia BS 60-69 mg/dL 10/11/17 10:45 11/10/17 10:44 Dextrose (Dextrose 50%) 50 ml STAT PRN IV Hypoglycemia BS < 60 mg/dL 10/11/17 10:30 11/10/17 10:29 Dopamine HCl/ Dextrose 250 ml @ 0 mls/hr Q24H IV 10/08/17 20:10 11/07/17 20:09 10/10/17 20:31 Hydromorphone HCl (Dilaudid) 0.5 mg Q4H PRN IVP Mod-Severe pain 4-10/09/17 19:30 10/16/17 15:29 10/11/17 05:10 Lorazepam (Ativan 2mg/ml 1ml) 0.5 mg EVERY 2 HOURS PRN IV For Anxiety 10/11/17 06:00 10/18/17 05:59 Metronidazole 100 ml @ 100 mls/hr Q8HR IVPB 10/09/17 18:30 10/16/17 18:29 10/11/17 14:25 Norepinephrine Bitartrate 8 mg/ Dextrose 558 ml @ 0 mls/hr Q24H IV 10/11/17 14:00 11/10/17 13:59 10/11/17 13:44 Ondansetron HCl (Zofran) 4 mg Q6H PRN IVP Nausea & Vomiting 10/08/17 16:15 11/07/17 16:14 10/10/17 19:48 Pantoprazole 80 mg/Sodium Chloride 250 ml @ 25 mls/hr Q10H IV 10/08/17 18:00 11/07/17 17:59 10/11/17 05:47 Phenylephrine HCl 50 mg/Dextrose 250 ml @ 0 mls/hr Q24H IV 10/11/17 11:00 11/10/17 10:59 10/11/17 14:29 Vancomycin HCl (Vanco rx to dose) 1 ea DAILY PRN MISC Per rx protocol 10/09/17 16:15 11/08/17 16:14 Vasopressin 100 units/Sodium Chloride 100 ml @ 0 mls/hr Q24H IV 10/11/17 06:00 11/10/17 05:59 10/11/17 06:00 GENE FLORES Oct 11, 2017 14:51
[2017-10-11] MEDS ORDERED: Amikacin 500 MG in NS 110 ML IV ONE (15:30)
[2017-10-11] MEDS ORDERED: Zemuron 50mg/5ml Inj IV ONE (15:45)
[2017-10-11] MEDS ORDERED: Tubing Blood Filter IV ONE ×2 (16:29)
[2017-10-11] MEDS ORDERED: Sodium Bicarbonate 50ml Carp ONE (16:29)
[2017-10-11] MEDS ORDERED: NS 275ml ONE ×3 (16:29)
[2017-10-11] MEDS ORDERED: Calcium Chloride 100mg/ml Vial ONE (16:29)
[2017-10-11] MEDS ORDERED: NS 500ML ONE ×3 (16:29)
[2017-10-11] MEDS ORDERED: D5NS 1000ml IV ONE ×4 (16:29)
[2017-10-11] MEDS ORDERED: Tubing IV Secondary IV ONE (16:29)
[2017-10-11] MEDS ORDERED: D5W 275ml ONE ×2 (16:29)
--- NOTE | 2017-10-11 16:41 | Emergency Room Report ---
Physical Exam Vital Signs Date Time Temp Pulse Resp B/P (MAP) Pulse Ox O2 Delivery O2 Flow Rate FiO2 10/08/17 12:41 98.9 106 20 80/46 99 Room Air 99.0 10/08/17 13:17 2.0 10/08/17 19:30 28 Medical Decision Making Diagnostic Impression: Primary Impression: Upper GI bleed Additional Impressions: Severe anemia ESRD (end stage renal disease) ER Course I was called to ICU to pronounce patient 42-year-old female, with GI bleed, intubated, made DO NOT RESUSCITATE by family Patient with dilated pupils, nonreactive No pulse, asystole on monitor Time of is 1427 Last Vital Signs Date Time Temp Pulse Resp B/P (MAP) Pulse Ox O2 Delivery O2 Flow Rate FiO2 10/11/17 15:17 76 26 100 10/11/17 14:30 124/48 72 10/11/17 14:07 Mechanical Ventilator 10/11/17 08:46 99.6 10/10/17 22:45 15.0 Disposition: ADMITTED INPATIENT Condition: Critical Referrals: MACHELLE CALDERON (PCP) Brijesh Vaca M.D. Oct 11, 2017 16:41
--- NOTE | 2017-10-11 17:05 | Cardiology Report ---
APPROVED REPORT EXAM: Two-dimensional and M-mode echocardiogram with Doppler and color Doppler. INDICATION S.O.B M-Mode DIMENSIONS IVSd1.2 (0.7-1.1cm)Left Atrium (MM)4.0 (1.6-4.0cm) LVDd4.4 (3.5-5.6cm)Aortic Root3.5 (2.0-3.7cm) PWd1.5 (0.7-1.1cm)Aortic Cusp Exc.1.9 (1.5-2.0cm) IVSs1.9 cm LVDs3.1 (2.5-4.0cm) PWs2.1 cm Technically difficult study due to poor acoustical windows and pts position . Normal left ventricular chamber size, systolic function and wall motion to extent visualized. Left ventricular ejection fraction estimated to be 60-65 %. No evidence of left ventricular hypertrophy. No evidence of pericardial effusion All other cardiav chamber sizes are within normal limits. Focal aortic valve sclerosis with adequate cusp excursion. Mildly Thickened mitral valve leaflets with normal excursion. Mildly Mitral annulus and aortic root calcification. Normal pulmonic valve structure. Normal tricuspid valve structure. Subcostal views not obtained due to pts surgery . A color flow and spectral Doppler study was performed and revealed: Mild aortic insufficiency. Mild to Moderate mitral regurgitation. Mitral diastolic velocities suggest mild left ventricular diastolic dysfunction (Grade I). Trace, Mild, Moderate, Severe tricuspid regurgitation. Tricuspid systolic velocities suggests peak right ventricular systolic pressure of 58 mmHg,consistent with moderate pulmonary hypertension. No pulmonic regurgitation present.
--- NOTE | 2017-10-11 19:42 | General Progress Note ---
Assessment/Plan Assessment/Plan #. Anemia due to underlying gastrointestinal bleed. 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 --> S/P Blood transfusion. No adverse events. --> Anemia workup reviewed. Iron 93, TIBC 155, Ferritin >2000, B12 378, Folate 7.2, TSH 1.9 --> Hemoglobin goal is above 7. #. Leukocytosis, likely secondary to stress reaction. --> critically ill, on abx this am --> Closely monitor. #. Anemia due to underlying kidney disease. --> The patient's ferritin is above 2000, therefore, does not require any further iron at this time. --> Given GI bleed, continue Sandostatin and Protonix for 72 hours. #. Disseminated intravascular coagulation --> worsening inr, as well as pt and ptt --> likely related to underlying sepsis #. Hypotension due to hemorrhagic shock. --> Closely monitor and consider using pressors per Cardiology. #. End-stage renal disease, on dialysis #. History of failed transplant Subjective Date patient seen: Oct 11, 2017 Allergies: Coded Allergies: CODEINE (Unverified Allergy, Unknown, 10/16/14) IODINE (Unverified Allergy, Unknown, 10/16/14) MORPHINE (Unverified Allergy, Unknown, 10/16/14) PENICILLINS (Unverified Allergy, Unknown, 10/16/14) Subjective Hypotensive and tachycardic, critically ill, on 2 pressors this am Objective Last 24 Hour Vital Signs Date Time Temp Pulse Resp B/P (MAP) Pulse Ox O2 Delivery O2 Flow Rate FiO2 10/11/17 16:15 0 0 104/70 10/11/17 16:00 0 10/11/17 16:00 49 20 71/56 27 Mechanical Ventilator 100 10/11/17 16:00 100 10/11/17 15:45 58 20 72/25 31 Mechanical Ventilator 100 10/11/17 15:30 60 21 104/38 18 Mechanical Ventilator 100 10/11/17 15:25 59 22 100/57 23 Mechanical Ventilator 100 10/11/17 15:17 76 26 100 10/11/17 15:15 69 21 117/48 31 Mechanical Ventilator 100 10/11/17 15:03 81 29 123/43 44 Mechanical Ventilator 100 10/11/17 15:00 82 26 121/49 41 Mechanical Ventilator 100 10/11/17 14:30 91 38 124/48 72 10/11/17 14:29 104 125/78 10/11/17 14:15 94 39 125/78 76 10/11/17 14:14 94 39 133/67 77 10/11/17 14:09 94 39 149/50 77 10/11/17 14:07 95 39 131/81 78 Mechanical Ventilator 100 10/11/17 14:00 95 37 131/78 79 Mechanical Ventilator 100 10/11/17 13:45 94 39 133/72 71 Mechanical Ventilator 100 10/11/17 13:44 116/62 10/11/17 13:30 90 34 116/63 81 Mechanical Ventilator 100 10/11/17 13:20 99 37 112/58 82 Mechanical Ventilator 100 10/11/17 13:18 104 42 100 10/11/17 13:15 103 41 82 Mechanical Ventilator 100 10/11/17 13:00 105 43 109/50 83 Mechanical Ventilator 100 10/11/17 12:45 107 43 104/48 87 Mechanical Ventilator 100 10/11/17 12:30 108 42 93/35 75 Mechanical Ventilator 100 10/11/17 12:15 108 43 117/51 70 Mechanical Ventilator 100 10/11/17 12:04 108 42 115/44 70 Mechanical Ventilator 100 10/11/17 12:00 100 10/11/17 12:00 105 10/11/17 12:00 108 42 62/38 73 Mechanical Ventilator 100 10/11/17 11:45 108 41 65/37 76 10/11/17 11:30 109 41 55/20 83 10/11/17 11:15 106 41 56/25 77 10/11/17 11:14 103 39 100 10/11/17 11:14 106 40 63/23 76 10/11/17 11:07 103 33/14 10/11/17 11:00 103 39 49/18 75 10/11/17 10:45 105 39 33/14 75 10/11/17 10:30 106 39 45/20 77 10/11/17 10:24 108 37 52/12 80 10/11/17 10:15 109 37 40/18 74 Mechanical Ventilator 100 10/11/17 10:12 109 36 31/12 74 Mechanical Ventilator 100 10/11/17 10:04 105 34 38/20 78 Mechanical Ventilator 100 10/11/17 10:00 115 10/11/17 09:58 102 28 30/12 77 Mechanical Ventilator 100 10/11/17 09:56 102 27 43/24 79 Mechanical Ventilator 100 10/11/17 09:53 102 29 49/23 79 Mechanical Ventilator 100 10/11/17 09:45 104 29 57/19 80 Mechanical Ventilator 100 10/11/17 09:30 107 31 57/30 81 Mechanical Ventilator 100 10/11/17 09:23 110 30 100 10/11/17 09:15 110 34 94/58 83 Mechanical Ventilator 100 10/11/17 09:00 115 38 121/90 64 Mechanical Ventilator 100 10/11/17 09:00 116/62 10/11/17 08:46 99.6 10/11/17 08:30 113 38 99/68 83 Mechanical Ventilator 100 10/11/17 08:16 101.6 10/11/17 08:15 109 37 85/20 82 Mechanical Ventilator 100 10/11/17 08:09 111 38 88/29 82 Mechanical Ventilator 100 10/11/17 08:02 111 38 87/26 83 Mechanical Ventilator 100 10/11/17 08:00 100 10/11/17 08:00 111 38 69/28 83 Mechanical Ventilator 100 10/11/17 07:30 101.6 111 39 69/28 87 Mechanical Ventilator 100 101.6 111 10/11/17 07:01 113 40 100 10/11/17 07:00 86/22 10/11/17 07:00 114 38 88/22 87 Mechanical Ventilator 100 114 10/11/17 06:30 110 34 88/16 85 Mechanical Ventilator 100 110 10/11/17 06:14 85/41 10/11/17 06:00 113 39 85/41 87 Mechanical Ventilator 100 113 10/11/17 05:30 113 36 81/22 90 Mechanical Ventilator 100 113 10/11/17 05:13 113 34 100 10/11/17 05:00 113 34 77/26 90 Mechanical Ventilator 100 113 10/11/17 04:30 112 33 69/22 90 Mechanical Ventilator 100 112 10/11/17 04:15 100 10/11/17 04:00 111 34 88/21 98 Mechanical Ventilator 100 111 10/11/17 04:00 115 10/11/17 03:42 90/66 10/11/17 03:30 117 34 87/38 93 Mechanical Ventilator 100 117 10/11/17 03:27 118 34 100 10/11/17 03:00 120 33 105/45 94 Mechanical Ventilator 100 120 10/11/17 02:00 126 36 121/66 92 Mechanical Ventilator 100 126 10/11/17 01:07 128 32 100 10/11/17 01:00 122 27 117/91 95 Mechanical Ventilator 100 122 10/11/17 00:30 108 25 90/66 99 Mechanical Ventilator 100 108 10/11/17 00:30 108 25 90/66 99 Mechanical Ventilator 100 108 10/11/17 00:00 121 10/11/17 00:00 100 24 93/56 99 Mechanical Ventilator 100 100 10/10/17 23:49 99/68 10/10/17 22:45 122 31 99/68 97 Non-Rebreather 15.0 122 10/10/17 22:35 140 22 100 10/10/17 22:30 123 30 99/68 97 Non-Rebreather 15.0 123 10/10/17 22:15 129 29 102/63 97 Non-Rebreather 15.0 129 10/10/17 22:00 97.3 137 28 101/75 98 Non-Rebreather 15.0 97.3 137 10/10/17 21:45 97.4 141 31 129/84 82 Non-Rebreather 15.0 97.4 141 10/10/17 21:30 112 25 83/36 72 Nasal Cannula 5.0 112 10/10/17 21:12 97 Nasal Cannula 2.0 28 10/10/17 21:12 Non-Rebreather 15.0 100 10/10/17 21:00 118 28 83/36 82 Nasal Cannula 5.0 118 10/10/17 20:45 112 36 83/68 82 Nasal Cannula 5.0 112 10/10/17 20:33 82/48 10/10/17 20:31 76/51 10/10/17 20:30 108 33 56/32 81 Nasal Cannula 5.0 108 10/10/17 20:15 107 31 76/51 84 Nasal Cannula 5.0 107 10/10/17 20:00 97.9 108 35 44/28 88 Nasal Cannula 5.0 97.9 108 10/10/17 20:00 108 Intake and Output 10/10/17 10/11/17 19:00 07:00 Intake Total 1050 ml 1762.5 ml Output Total 220 ml 1106 ml Balance 830 ml 656.5 ml IV Total 1050 ml 1762.5 ml Output Urine Total 0 ml 0 ml Emesis 220 ml 360 ml Hemodialysis UF 746 ml Laboratory Tests 10/10/17 21:05: Arterial Blood pH 7.398, Arterial Blood Partial Pressure CO2 41.8, Arterial Blood Partial Pressure O2 47.1*L, Arterial Blood HCO3 25.2, Arterial Blood Oxygen Saturation 82.9L, Arterial Blood Base Excess 0.3, Tomas Test Positive 10/10/17 21:45: Sodium Level 146H, Potassium Level 3.6, Chloride Level 105, Carbon Dioxide Level 22, Anion Gap 19H, Blood Urea Nitrogen 56H, Creatinine 4.0H, Estimat Glomerular Filtration Rate 12.3, Glucose Level 244H, Calcium Level 9.3, Total Bilirubin 1.0, Aspartate Amino Transf (AST/SGOT) 140H, Alanine Aminotransferase (ALT/SGPT) 191H, Alkaline Phosphatase 209H, Total Protein 4.5L, Albumin 1.3L, Globulin 3.2, Albumin/Globulin Ratio 0.4L 10/10/17 22:15: White Blood Count 5.4, Red Blood Count 3.24L, Hemoglobin 10.0L, Hematocrit 29.1L , Mean Corpuscular Volume 90, Mean Corpuscular Hemoglobin 30.9, Mean Corpuscular Hemoglobin Concent 34.3, Red Cell Distribution Width 15.8H, Platelet Count 158, Mean Platelet Volume 8.7, Neutrophils (%) (Auto) 80.0H, Lymphocytes (%) (Auto) 17.0L, Monocytes (%) (Auto) 1.6, Eosinophils (%) (Auto) 0.1, Basophils (%) (Auto) 1.4, Prothrombin Time 17.6H, Prothromb Time International Ratio 1.7H, Activated Partial Thromboplast Time 41H, Lactic Acid Level 12.60H, Troponin I 0.074H 10/10/17 23:06: Arterial Blood pH 7.286L, Arterial Blood Partial Pressure CO2 35.2, Arterial Blood Partial Pressure O2 92.6, Arterial Blood HCO3 16.4L, Arterial Blood Oxygen Saturation 95.6, Arterial Blood Base Excess -9.4, Tomas Test Positive 10/11/17 01:00: Arterial Blood pH 7.377, Arterial Blood Partial Pressure CO2 32.0L, Arterial Blood Partial Pressure O2 86.1, Arterial Blood HCO3 18.4L, Arterial Blood Oxygen Saturation 95.4, Arterial Blood Base Excess -5.9, Tomas Test Positive 10/11/17 04:00: White Blood Count 3.4L, Red Blood Count 3.20L, Hemoglobin 9.8L, Hematocrit 28.8L , Mean Corpuscular Volume 90, Mean Corpuscular Hemoglobin 30.5, Mean Corpuscular Hemoglobin Concent 33.8, Red Cell Distribution Width 16.0H, Platelet Count 99L, Mean Platelet Volume 8.9, Neutrophils (%) (Auto) , Lymphocytes (%) (Auto) , Monocytes (%) (Auto) , Eosinophils (%) (Auto) , Basophils (%) (Auto) , Differential Total Cells Counted 100, Neutrophils % ( Manual) 56, Lymphocytes % (Manual) 10L, Monocytes % (Manual) 5, Eosinophils % ( Manual) 0, Basophils % (Manual) 0, Metamyelocytes % 1H, Band Neutrophils 28H, Nucleated Red Blood Cells 3, Platelet Estimate DecreasedL, Platelet Morphology Normal, Polychromasia 2+, Hypochromasia 1+, Anisocytosis 1+, Haptoglobin [ Pending], Prothrombin Time 17.0H, Prothromb Time International Ratio 1.6H, Activated Partial Thromboplast Time 45H, PTT Mixing Study [Pending], APTT Patient/Control Mix [Pending], Mix PTT Incubation Time [Pending], Mix PTT Normal /Saline 1:1 Immediate [Pending], Thrombin Time Normal Plasma [Pending], Sodium Level 144, Potassium Level 3.9, Chloride Level 105, Carbon Dioxide Level 22, Anion Gap 17H, Blood Urea Nitrogen 56H, Creatinine 3.9H, Estimat Glomerular Filtration Rate 12.7, Glucose Level 61#L, Lactic Acid Level 10.80H, Calcium Level 8.1L, Phosphorus Level 4.3, Magnesium Level 2.0, Total Bilirubin 1.1H, Direct Bilirubin 0.5H, Aspartate Amino Transf (AST/SGOT) 188H, Alanine Aminotransferase (ALT/SGPT) 196H, Alkaline Phosphatase 196H, Lactate Dehydrogenase 411H, Troponin I 0.192H, C-Reactive Protein, Quantitative > 70.0H , Total Protein 4.4L, Albumin 1.3L, Globulin 3.1, Albumin/Globulin Ratio 0.4L, Random Vancomycin Level 11.9 10/11/17 06:10: Arterial Blood pH 7.389, Arterial Blood Partial Pressure CO2 24.2*L, Arterial Blood Partial Pressure O2 44.9*L, Arterial Blood HCO3 14.3L, Arterial Blood Oxygen Saturation 78.8L, Arterial Blood Base Excess -9.3, Tomas Test Positive 10/11/17 13:25: Lactic Acid Level 13.70H Height (Feet): 5 Height (Inches): 4.00 Weight (Pounds): 166 General Appearance: no apparent distress EENT: normal ENT inspection Neck: supple Cardiovascular: normal rate Respiratory/Chest: lungs clear Abdomen: non tender Extremities: non-tender Edema: mild edema Neurologic: normal mood/affect Skin: warm/dry Tushar Galdamez MD Oct 11, 2017 19:42
[2017-10-11] MEDS ORDERED: Aztreonam Inj 0.5 GM in NS 55 ML IVPB SCH (20:00)
--- NOTE | 2017-10-13 11:45 | Discharge Summary 2 SIG ---
DATE OF ADMISSION: 10/08/2017 DATE OF DISCHARGE: 10/11/2017 SUMMARY DATE OF EXPIRATION: 10/11/2017 REASON FOR ADMISSION: This was a 42-year-old female with history of hypertension, failed kidney transplant, end-stage renal disease, on hemodialysis, who presented with hematemesis. The patient was dialyzed the day before presentation. The patient was dialyzed through the left-sided temporary dialysis access. The patient had previous shunts in both upper extremities. The patient denied prior history of hematemesis. She reported also lower abdominal pain. Upon evaluation, the patient was tachycardic at 106 and blood pressure of 80/46. The patient required placement on supplemental oxygen, pulse oximetry was 92%. The patient was afebrile. WBC was 19.4, hemoglobin 7.7, and hematocrit 24.1. BUN 69 and creatinine 6.9 consistent with known history of end-stage renal disease. Anion gap 17. Glucose 207. LFT and lipase were within normal limits. test was negative. EKG revealed normal sinus rhythm, no acute ischemic changes. CT of the abdomen and pelvis done revealed: 1. [id number] hiatal hernia. 2. Gastric distention with high-attenuation component within the stomach, likely blood. Correlates with given history of recent hematemesis. 3. Cholelithiasis. No evidence to suggest acute cholecystitis. 4. Diverticulosis. No evidence to suggest acute diverticulitis. 5. Atrophic [place] kidneys. Dialysis catheter in place with tip projecting to the inferior vena cava. 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 A 5-mm nodule in the right lower lobe. THE PATIENT ADMITTED WITH DIAGNOSES OF: 6. Upper GI bleeding. 7. End-stage renal disease, on hemodialysis. 8. Severe anemia. CONSULTANTS: 1. Tianna Park M.D., GI specialist. 2. Tom Livingston M.D., network control technician. 3. Layne Enamorado M.D., critical care/hand worker. 4. Tushar Gadlamez M.D., audio director. 5. Sushma Charles M.D., infectious disease specialist. 6. Cornell Hong M.D., general surgeon. 7. Fabio Welsh M.D., corrosion control fitter. 8. Angel Abdul M.D., ground service equipment mechanic. HOSPITAL STAY: The patient admitted. The patient initially was n.p.o. The patient started on octreotide drip and PPI drip. GI urgently consulted. Hemoglobin and hematocrit were closely monitored with goal to transfuse if hemoglobin below 7.5 or any evidence of acute bleeding. The patient initially refused 2 units of packed red blood cells. The patient was kept n.p.o. Plan was for EGD in the morning. Pain management provided. Bowel regimen instituted. The patient admitted to ICU. Rehabilitation Aide/Scheduler consulted. Blood pressure medications were on hold. Supplemental oxygen and pulmonary toilet provided as needed. DVT prophylaxis provided with SCD. Supportive care provided. The patient initially Full Code. The patient subsequently next day had undergone endoscopy due to the upper GI bleeding. Examination was limited given there was a clot sitting in the stomach, however, bleeding was probably from the Patsy-Clarke tear, status post Hemoclip, epinephrine injection, and gold probe cauterization. After procedure, the patient continued to be n.p.o. Octreotide drip was stopped. Continued Protonix drip. Hemoglobin and hematocrit continued to be closely monitored with hemoglobin above 7. Dialysis was arranged as per network control technician. The patient had undergone total of 5 units of packed red blood cells. Lactic acid initially negative. Anemia workup with stable iron, low folate. The patient was on folic acid replacement. Hemodialysis provided as per network control technician. Electrolytes and renal parameters were closely monitored. Hemodialysis on 10/09/2017 was not done due to the low blood pressure. Hemodialysis done on 10/10/2017 with multiple boluses to keep blood pressure stable. The patient was on empiric antibiotics. Blood culture 2 out of 4, possible gram-negative bacilli, possible GI source per ID doctor or line infection. The patient was continued on antibiotics. Rehabilitation Aide/Scheduler closely followed initially for hypotension. Echocardiogram revealed preserved ejection fraction of 60% to 65%, no left ventricular hypertrophy, [id number] mitral regurgitation, right ventricular systolic pressure of 58 consistent with moderate pulmonary hypertension. Animal Care Service Worker had seen the patient due to the fracture of the right foot. X-ray of the right foot revealed acute fracture of the right foot at the base of the second and third metatarsal and probably the fourth as well. There was also fracture of the fifth metatarsal base. Soft tissue swelling noted. The cast was removed. Per Podiatry consultation, hematoma already had been evacuated. He recommended to clean and apply Xeroform to the area and cover with 4 x 4 and then cast padding, posterior splint, and wrap around the right foot just below the tibial tuberosity. The patient would be nonweightbearing until further notice. Another x-ray was planned to be done 3 views, nonweightbearing of the right foot to evaluate the extent of fracture. The patient likely would need surgical intervention if fracture fragments were greater than 2 mm and that was discussed with the patient. She would require 4 to 6 weeks of nonweightbearing therapy. Surgical shoe at that time would be ordered and be appropriate. At this time, he wanted to continue with conservative treatment with a posterior splint and elevation of the right foot on the two pillows. Pain management to be addressed. There were no acute signs of soft tissue infection at that time. As mentioned above, foot x-ray 3 views of the right foot revealed fracture of the base of the second and the third metatarsal, probably the fourth metatarsal as well. There was also fracture of the fifth metatarsal base, soft tissue swelling was noted. Anemia workup revealed stable iron and low folate. The patient was on folate replacement. The patient continued to be deteriorated with poor prognosis. On 10/11/2017, at midnight, Taye Haddad was called. The patient was asystolic with no palpable pulses. The patient required emergency oral intubation. ABG revealed initial hypoxemia. The patient was given during the Code, epinephrine, calcium chloride, sodium bicarbonate, and glucose. The patient subsequently had return of palpable pulses and documented blood pressure. The patient also noted, upon airway intubation, copious amounts of greenish liquid in the airway. The patient was unresponsive during this time, tachycardic, tachypneic, on 100% nonrebreathing mask, and saturated 97%, however, was not responsive with heart rate of 122 and respiratory rate of 30. At that time, the patient's laboratory work demonstrated elevated LFT, likely shock liver. Troponin was with elevation probably due to renal failure, mild elevation, the highest one was 0.192. EKG revealed no acute ischemic changes. At that time, abdominal x-ray was done at night prior to intubation and showed distended bowel in the mid abdomen, nonspecific, ileus versus obstruction. NG tube was placed for the intermittent suction. Chest x-ray after intubation in the morning revealed extensive bilateral infiltrates versus pulmonary edema line satisfactorily placed, bilateral infiltrates versus pulmonary edema. Surgeon closely followed the patient. Surgeon personally reviewed CT scan of abdomen and pelvis and noted lots of blood in the GI tract. During the exam, noted pain on palpation, but no peritoneal signs. Pain possibly could be related to the blood in GI tract versus low flow for the acute blood-loss anemia. If pain would be worsening, the patient might need laparoscopy. Repeat scope was planned, but unfortunately the patient was intubated and at that time was not stable for endoscopy. Repeated labs revealed elevated lactic acid. On 10/10/2017, it was 12.6 and on 10/11/2017, up to 14.7. The patient also exhibited coagulopathy with INR of 1.7 and elevated LFT, likely shock liver due to shock. The patient required multiple pressors to maintain hemodynamics to maintain blood pressure under control. The patient was on maximum dose of Levophed and Mark-Synephrine as well as vasopressin. The patient's condition continued to be deteriorated at discharge, discussed with the family. Family decided to make the patient DNR. DNR/DNI status was changed on 10/11/2017 at 1536 hours. Per network control technician, albumin 5%, 1 liter was done for hemodynamic support and D10 was given for hypoglycemia. Per surgeon who closely followed, the patient was not responding to medical care and continued to deteriorate. The patient was hypotensive and required increased pressors. Respiratory status was worsened with hypoxia and increased ventilator requirements. 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 No signs of perforation or complication noted. The patient needed to address underlying etiology such as hypotension and the patient was not responding to maximum pressors. The patient's condition was rapidly deteriorating and the patient was subsequently pronounced on 10/11/2017 at 1427 hours when she was found in asystole without pulses. CAUSE OF : Cardiopulmonary arrest. FINAL DIAGNOSES: 1. Status post cardiopulmonary arrest. 2. Sepsis with shock. 3. Gram-negative bacteremia, probably of GI origin. 4. Hemorrhagic shock. 5. Upper GI bleeding. 6. Acute blood loss anemia requiring 5 units of packed red blood cells. 7. Status post EGD and hemostasis. 8. Probable Patsy-Clarke tear, status post Hemoclip, epinephrine injection, and gold probe cauterization. 9. Acute hypoxemic respiratory failure, requiring intubation. 10. Lactic acidosis. 11. Shock liver. 12. Coagulopathy. 13. Toxic metabolic encephalopathy. 14. Metatarsal fracture, right foot. 15. Hematoma, right foot. 16. History of failed kidney transplant. Myke Olmos M.D. I have been assigned to dictate discharge summary on this account and I was not involved in the patient's management. Gege Workmanmount vernon hospitalTariq N.PIbrahima DR: CARITO JOB#: [id number] CC:
== END 2017-10-11 16:30 | disposition expired | DRG 368 ==
LOC: EDBD 12:49 → EMR 13:26 → ICU 13:37 → EDBEDREQ 14:00
PROC: 30233N1 Transfusion of Nonautologous Red Blood Cells into Peripheral Vein, Percutaneous Approach (ICD-10-PCS; principal; 2017-10-08)
PROC: 5A1D70Z Performance of Urinary Filtration, Intermittent, Less than 6 Hours Per Day (ICD-10-PCS; 2017-10-09 11:32)
PROC: 0W3P8ZZ Control Bleeding in Gastrointestinal Tract, Via Natural or Artificial Opening Endoscopic (ICD-10-PCS; 2017-10-09 11:32)
PROC: 02HV33Z Insertion of Infusion Device into Superior Vena Cava, Percutaneous Approach (ICD-10-PCS; 2017-10-09 11:32)
PROC: B548ZZA Ultrasonography of Superior Vena Cava, Guidance (ICD-10-PCS; 2017-10-09 11:32)
PROC: 0W3P8ZZ Control Bleeding in Gastrointestinal Tract, Via Natural or Artificial Opening Endoscopic (ICD-10-PCS; 2017-10-10)
PROC: 0BH17EZ Insertion of Endotracheal Airway into Trachea, Via Natural or Artificial Opening (ICD-10-PCS; 2017-10-11)
PROC: 5A1935Z Respiratory Ventilation, Less than 24 Consecutive Hours (ICD-10-PCS; 2017-10-11)
PROC: 5A12012 Performance of Cardiac Output, Single, Manual (ICD-10-PCS; 2017-10-11)
DX: K22.6 Gastro-esophageal laceration-hemorrhage syndrome (principal); N18.6 End stage renal disease; A41.9 Sepsis, unspecified organism; J96.01 Acute respiratory failure with hypoxia; R65.21 Severe sepsis with septic shock; D65 Disseminated intravascular coagulation [defibrination syndrome]; G92 Toxic encephalopathy; K72.00 Acute and subacute hepatic failure without coma; D62 Acute posthemorrhagic anemia; I12.0 Hypertensive chronic kidney disease with stage 5 chronic kidney disease or end stage renal disease; T86.12 Kidney transplant failure; E87.2 Acidosis; I95.89 Other hypotension; K44.9 Diaphragmatic hernia without obstruction or gangrene; Z99.2 Dependence on renal dialysis; R57.8 Other shock; D63.1 Anemia in chronic kidney disease; E87.5 Hyperkalemia; K57.90 Diverticulosis of intestine, part unspecified, without perforation or abscess without bleeding; K80.20 Calculus of gallbladder without cholecystitis without obstruction
CPT/HCPCS: 36415; 36569; 36600; 71045; 74018; 74176; 80048; 80053; 80061; 80076; 80202; 82140; 82247; 82248; 82378; 82550; 82607; 82728; 82746; 82803; 82962; 82977; 83010; 83036; 83540; 83550; 83605; 83615; 83690; 83735; 83880; 84100; 84443; 84484; 84550; 84703; 85007; 85025; 85044; 85060; 85610; 85651; 85730; 86140; 86850; 86870; 86880; 86900; 86901; 86904; 86920; 87040; 87181; 92950; 93005; 93306; 94002; 94003; 94150; 94760; 99291; J0171; J1815; J2250; J2370; J2405